=== PATIENT | male | born 1945 | race Caucasian/White ===

== ENCOUNTER 2018-12-13 19:35 | Inpatient (IN) | payer MEDICARE, MEDICAID ==
[2018-12-13 22:14] VITALS: BP 148/77
[2018-12-13] MEDS ORDERED: Magnesium Hydroxide (MOM) 30 mL UDC PO PRN (22:24)
[2018-12-14] MEDS: Rivastigmine 4.6 mg/24 hr Tdm TD SCH (09:12)
[2018-12-14] MEDS: Pantoprazole 40 mg EC Tab PO SCH (09:14)
--- NOTE | 2018-12-14 14:09 | Consultation ---
DATE OF CONSULTATION: 12/14/2018 INTERVENTIONAL CONSULTATION REASON FOR CONSULTATION: Medical management and clearance. The patient admitted on the inpatient unit. HISTORY OF PRESENT ILLNESS: This is a 73-year-old male with history of Parkinson's, Alzheimer dementia, BPH, GERD, admitted from facility in [facility]. The patient was cleared medically from hospital in [place] and transferred under service of Dr. Kinney. The patient is a very poor historian and stares blankly. PAST MEDICAL HISTORY: As mentioned in history of present illness. PAST SURGICAL HISTORY: Unable to obtain any surgeries from the patient. ALLERGIES: HEPARIN. MEDICATIONS: The patient is on Flomax, Exelon, Protonix, Seroquel, Ativan, and Depakote. FAMILY HISTORY: Noncontributory. SOCIAL HISTORY: The patient is a jail patient requiring 24-hour total care. REVIEW OF SYSTEMS: This is limited secondary to the patient's current mental state. We will try to obtain more detailed review of system at a later date by talking to family members, she, and ____ daughter, #[phone]. We will also try to get information from nursing staff in [place] as well as ____. PHYSICAL EXAMINATION: VITAL SIGNS: Blood pressure 148/77, respirations 20, pulse 93, temperature 97.9. GENERAL: Elderly male, chronically ill. NECK: Supple. No mass. LUNGS: Equal breath sounds with few rhonchi. HEART: Regular rate and rhythm with a systolic ejection murmur. ABDOMEN: Soft, globular. EXTREMITIES: Positive excoriations. NEUROLOGIC: Limited. The patient has resting tremor. Gait not seen, in a wheelchair. LABORATORY DATA: Labs are pending. ASSESSMENT AND PLAN: Parkinson's disorder, Alzheimer's dementia, BPH, gastroesophageal reflux disease. We will place the patient on fall precaution. We will try to see what his medication for Parkinson's. Continue on Flomax. Continue on proton pump inhibitor. We will continue monitoring closely with you, Dr. Kinney. JOB# [id number]
--- NOTE | 2018-12-14 18:15 | Psychiatric Evaluation ---
DATE OF SERVICE: 12/14/2018 JUSTIFICATION FOR HOSPITALIZATION: Increased anxiety, aggressive behaviors. HISTORY OF PRESENT ILLNESS: A 73-year-old male, refusing to speak with me this morning, does not engage with me whatsoever. He opens his eyes then closes them. The patient is here because of increased agitation, aggressive behaviors, anxiety. The patient was not [facility] to a [facility] because of behavioral disturbances, agitation, the nurse checked twice in the face, really agitated, noted by staff to be confused, disoriented, laughing to self, combative. PAST PSYCHIATRIC HISTORY: Noted to have dementia. SOCIAL HISTORY: Unclear, not speaking with me at this time. We will need to try to increase collateral. MEDICATIONS: Noted. MEDICAL HISTORY: Noted including Parkinson's. MENTAL STATUS EXAMINATION: Stated age, sleeping, arousable, opens his eyes, but does not engage with me whatsoever. Unclear SI or HI, unclear confusional state, but noted to have dementia, poor insight, poor impulse control. PROVISIONAL DIAGNOSES: Dementia, dementia with behaviors; mood, unspecified; psychosis, unspecified; anxiety, unspecified. MEDICAL: Please see full H and P. Vitals were noted. ESTIMATED LENGTH OF STAY: 7-10 days. ASSESSMENT: The patient requiring hospitalization, aggressive, agitated, combative, hitting, violence. PLAN: We will adjust medications. TREATMENT PLAN: Includes group as well as milieu therapy. CONDITIONS FOR DISCHARGE: Improved mood, improved affect, better control of agitation. JOB# [id number]
[2018-12-14] MEDS ORDERED: Haloperidol Lactate 5 mg/mL 1mL Vial ONE (19:47)
[2018-12-14] MEDS ORDERED: Haloperidol Lactate 5 mg/mL 1mL Vial IM ONE (19:59)
[2018-12-15] MEDS: Rivastigmine 4.6 mg/24 hr Tdm TD SCH (09:45)
[2018-12-15] MEDS: Pantoprazole 40 mg EC Tab PO SCH (09:45)
--- NOTE | 2018-12-15 12:54 | Internal Medicine Prog Note ---
Internal Medicine Subjective - Subjective Patient seen and examined:: with staff, chart reviewed Patient is:: awake, non-verbal, non-interactive, in bed Per staff patient has:: no adverse event, no episodes of fall, poor oral intake , tolerating meds Internal Medicine Objective - Physical Exam Vitals and I&O: Vital Signs Temp 98.1 F 12/14/18 20:00 Pulse 91 12/14/18 20:00 Resp 19 12/15/18 08:00 BP 142/65 12/14/18 20:00 Pulse Ox 95 12/14/18 20:00 Intake & Output 12/14/18 12/15/18 12/15/18 18:59 06:59 18:59 Intake Total 1200 720 Balance 1200 720 Intake: Oral 1200 720 Other: # Voids 3 2 # Bowel Movements 0 Active Medications: Current Medications Acetaminophen (Tylenol) 650 mg PO Q4HR PRN PRN Reason: Mild Pain / Temp above 100 Stop: 02/11/19 22:23 Lorazepam (Ativan) 0.5 mg PO Q4H PRN; Protocol PRN Reason: Anxiety Stop: 02/11/19 22:23 Last Admin: 12/15/18 09:59 Dose: 0.5 mg Magnesium Hydroxide (Milk Of Magnesia) 30 ml PO HS PRN PRN Reason: Constipation Pantoprazole Sodium (Protonix) 40 mg PO DAILY LISANDRO Stop: 02/12/19 08:59 Last Admin: 12/15/18 09:45 Dose: 40 mg Quetiapine Fumarate (Seroquel) 12.5 mg PO BID LISANDOR; Protocol Stop: 02/13/19 16:59 Rivastigmine (Exelon 4.6 Mg/24 Hr Tdm) 1 patch TD DAILY LISANDRO Stop: 02/12/19 08:59 Last Admin: 12/15/18 09:45 Dose: 1 patch Tamsulosin HCl (Flomax) 0.4 mg PO HS LISANDRO Stop: 02/12/19 20:59 Last Admin: 12/14/18 21:38 Dose: 0.4 mg Zolpidem Tartrate (Ambien) 5 mg PO HS PRN PRN Reason: Insomnia Stop: 02/11/19 22:23 General: demented, disheveled, thin HEENT: NC/AT, PERRLA, EOMI Neck: Supple, No JVD Lungs: CTAB Cardiovascular: RRR, Normal S1, Normal S2, with murmur Abdomen: soft, non-tender, thin, positive bowel sound Extremities: excoriation, deformity Neurological: no change Internal Medicine Assmt/Plan - Assessment Assessment: ASSESSMENT AND PLAN: Parkinson's disorder, Alzheimer's dementia, BPH, gastroesophageal reflux disease. - Plan Plan: PLAN: We will place the patient on fall precaution. We will try to see what his medication for Parkinson's. Continue on Flomax. Continue on proton pump inhibitor. We will continue monitoring closely with you, Dr. Kinney.
[2018-12-16] MEDS: Rivastigmine 4.6 mg/24 hr Tdm TD SCH (08:41)
[2018-12-16] MEDS: Pantoprazole 40 mg EC Tab PO SCH (08:43)
--- NOTE | 2018-12-16 09:29 | Progress Notes ---
DATE: 12/15/2018 SUBJECTIVE: The patient was seen and evaluated. The patient was interviewed. The patient was brought in here after the patient had increased agitation and aggressive behavior, refusing to speak in the morning. He was [facility] in [facility] ____. MEDICATIONS: Reconciliation. Rivastigmine, Exelon. The patient required emergent medications yesterday ____ Ativan and 25 Benadryl. Today, he is on a Rachel chair, observed some thought blocking, mild latency, rocking back and forth, refusing to be interviewed, agitated. ASSESSMENT AND PLAN: The patient is a 73-year-old male with a history of dementia, behavior disturbances, requiring emergent medications as early as yesterday for aggressive an agitated behavior, continues to need redirection. We will start the patient on low dose Seroquel 12.5 mg to target the patient's aggressive behavior. JOB# [id number]
--- NOTE | 2018-12-16 12:27 | Internal Medicine Prog Note ---
Internal Medicine Subjective - Subjective Patient seen and examined:: with staff, chart reviewed Patient is:: awake, non-verbal, non-interactive, in bed Per staff patient has:: no adverse event, no episodes of fall, poor oral intake , tolerating meds Internal Medicine Objective - Physical Exam Vitals and I&O: Vital Signs Temp 98.4 F 12/16/18 05:59 Pulse 89 12/16/18 05:59 Resp 18 12/16/18 08:00 BP 121/77 12/16/18 05:59 Pulse Ox 95 12/16/18 05:59 Intake & Output 12/15/18 12/16/18 12/16/18 18:59 06:59 18:59 Intake Total 1200 480 Output Total 2 Balance 1200 478 Intake: Oral 1200 480 Output: Urine/Stool Mix 2 Other: # Voids 3 1 # Bowel Movements 0 Active Medications: Current Medications Acetaminophen (Tylenol) 650 mg PO Q4HR PRN PRN Reason: Mild Pain / Temp above 100 Stop: 02/11/19 22:23 Lorazepam (Ativan) 0.5 mg PO Q4H PRN; Protocol PRN Reason: Anxiety Stop: 02/11/19 22:23 Last Admin: 12/15/18 09:59 Dose: 0.5 mg Magnesium Hydroxide (Milk Of Magnesia) 30 ml PO HS PRN PRN Reason: Constipation Pantoprazole Sodium (Protonix) 40 mg PO DAILY LISANDRO Stop: 02/12/19 08:59 Last Admin: 12/16/18 08:43 Dose: 40 mg Quetiapine Fumarate (Seroquel) 12.5 mg PO BID LISANDRO; Protocol Stop: 02/14/19 08:59 Last Admin: 12/16/18 08:42 Dose: 12.5 mg Rivastigmine (Exelon 4.6 Mg/24 Hr Tdm) 1 patch TD DAILY LISANDRO Stop: 02/12/19 08:59 Last Admin: 12/16/18 08:41 Dose: 1 patch Tamsulosin HCl (Flomax) 0.4 mg PO HS LISANDRO Stop: 02/12/19 20:59 Last Admin: 12/15/18 21:23 Dose: 0.4 mg Zolpidem Tartrate (Ambien) 5 mg PO HS PRN PRN Reason: Insomnia Stop: 02/11/19 22:23 Last Admin: 12/15/18 21:23 Dose: 5 mg General: demented, disheveled, thin HEENT: NC/AT, PERRLA, EOMI Neck: Supple, No JVD Lungs: CTAB Cardiovascular: RRR, Normal S1, Normal S2, with murmur Abdomen: soft, non-tender, thin, positive bowel sound Extremities: excoriation, deformity Neurological: no change Internal Medicine Assmt/Plan - Assessment Assessment: ASSESSMENT AND PLAN: Parkinson's disorder, Alzheimer's dementia, BPH, gastroesophageal reflux disease. - Plan Plan: PLAN: We will place the patient on fall precaution. We will try to see what his medication for Parkinson's. Continue on Flomax. Continue on proton pump inhibitor. We will continue monitoring closely with you, Dr. Kinney.
[2018-12-16] MEDS ORDERED: Haloperidol Lactate 5 mg/mL 1mL Vial IM ONE (12:48)
[2018-12-16] MEDS ORDERED: Haloperidol Lactate 5 mg/mL 1mL Vial ONE (12:55)
--- NOTE | 2018-12-16 18:38 | Progress Notes ---
DATE: SUBJECTIVE: The patient was seen and evaluated. The patient's chart reviewed. Covering for Dr. Montes. Today on [id number] evaluation, he is irritable, he is anxious, refusing most of the interview, needing a lot of prompting. MENTAL STATUS EXAMINATION: Moderate latency. No over sedation. ASSESSMENT AND PLAN: The patient is a 73-year-old male tolerating the recent addition of the Seroquel 12.5 mg as he had recently required emergent medications for aggressive and assaultive behavior. We will continue with the current medication regimen as he continues to reach steady state. Further monitoring and medical evaluation pending. JOB# [id number]
[2018-12-17] MEDS: Pantoprazole 40 mg EC Tab PO SCH (09:00)
[2018-12-17] MEDS: Rivastigmine 4.6 mg/24 hr Tdm TD SCH (09:01)
--- NOTE | 2018-12-17 12:35 | Internal Medicine Prog Note ---
Internal Medicine Subjective - Subjective Patient seen and examined:: with staff, chart reviewed Patient is:: awake, non-verbal, non-interactive, in bed Per staff patient has:: no adverse event, no episodes of fall, poor oral intake , tolerating meds Internal Medicine Objective - Physical Exam Vitals and I&O: Vital Signs Temp 97.9 F 12/17/18 05:58 Pulse 98 12/17/18 05:58 Resp 18 12/17/18 08:00 BP 128/78 12/17/18 05:58 Pulse Ox 96 12/17/18 05:58 Intake & Output 12/16/18 12/17/18 12/17/18 18:59 06:59 18:59 Intake Total 900 300 Output Total 1 Balance 900 299 Intake: Oral 900 300 Output: Urine/Stool Mix 1 Other: # Voids 4 1 # Bowel Movements 2 0 Active Medications: Current Medications Acetaminophen (Tylenol) 650 mg PO Q4HR PRN PRN Reason: Mild Pain / Temp above 100 Stop: 02/11/19 22:23 Lorazepam (Ativan) 0.5 mg PO Q4H PRN; Protocol PRN Reason: Anxiety Stop: 02/11/19 22:23 Last Admin: 12/15/18 09:59 Dose: 0.5 mg Magnesium Hydroxide (Milk Of Magnesia) 30 ml PO HS PRN PRN Reason: Constipation Pantoprazole Sodium (Protonix) 40 mg PO DAILY LISANDRO Stop: 02/12/19 08:59 Last Admin: 12/17/18 09:00 Dose: 40 mg Quetiapine Fumarate (Seroquel) 12.5 mg PO BID LISANDRO; Protocol Stop: 02/14/19 08:59 Last Admin: 12/17/18 09:00 Dose: 12.5 mg Rivastigmine (Exelon 4.6 Mg/24 Hr Tdm) 1 patch TD DAILY LISANDRO Stop: 02/12/19 08:59 Last Admin: 12/17/18 09:01 Dose: 1 patch Tamsulosin HCl (Flomax) 0.4 mg PO HS LISANDRO Stop: 02/12/19 20:59 Last Admin: 12/16/18 20:18 Dose: 0.4 mg Zolpidem Tartrate (Ambien) 5 mg PO HS PRN PRN Reason: Insomnia Stop: 02/11/19 22:23 Last Admin: 12/15/18 21:23 Dose: 5 mg General: demented, disheveled, thin HEENT: NC/AT, PERRLA, EOMI Neck: Supple, No JVD Lungs: CTAB Cardiovascular: RRR, Normal S1, Normal S2, with murmur Abdomen: soft, non-tender, thin, positive bowel sound Extremities: excoriation, deformity Neurological: no change Internal Medicine Assmt/Plan - Assessment Assessment: ASSESSMENT AND PLAN: Parkinson's disorder, Alzheimer's dementia, BPH, gastroesophageal reflux disease. - Plan Plan: PLAN: We will place the patient on fall precaution. We will try to see what his medication for Parkinson's. Continue on Flomax. Continue on proton pump inhibitor. We will continue monitoring closely with you, Dr. Kinney.
--- NOTE | 2018-12-17 23:51 | Progress Notes ---
DATE: 12/17/2018 SUBJECTIVE: A 73-year-old male in a Rachel chair, very confused on exam, just mumbling, not talking to me whatsoever. He is awake, looking around. Dr. Kinney is seeing him over the weekend, noted to be irritable, anxious, refusing most of the interview, needing a lot of prompting, sometimes agitated, aggressive, requiring emergency medications. ASSESSMENT: The patient remains impulsive, very unpredictable. PLAN: We will continue dosing of Risperdal. Monitor for any agitation, escalation of behaviors, violent behaviors. JOB# [id number]
[2018-12-18] MEDS: Pantoprazole 40 mg EC Tab PO SCH (09:14)
[2018-12-18] MEDS: Rivastigmine 4.6 mg/24 hr Tdm TD SCH (09:15)
--- NOTE | 2018-12-18 12:25 | Internal Medicine Prog Note ---
Internal Medicine Subjective - Subjective Patient seen and examined:: with staff, chart reviewed Patient is:: awake, non-verbal, non-interactive, in bed Per staff patient has:: no adverse event, no episodes of fall, poor oral intake , tolerating meds Internal Medicine Objective - Physical Exam Vitals and I&O: Vital Signs Temp 97.6 F 12/18/18 05:42 Pulse 82 12/18/18 05:42 Resp 20 12/18/18 05:42 BP 128/57 12/18/18 05:42 Pulse Ox 96 12/18/18 05:42 Intake & Output 12/17/18 12/18/18 12/18/18 18:59 06:59 18:59 Intake Total 800 300 Output Total 1 Balance 800 299 Intake: Oral 800 300 Output: Urine/Stool Mix 1 Other: # Voids 3 1 # Bowel Movements 1 1 Active Medications: Current Medications Acetaminophen (Tylenol) 650 mg PO Q4HR PRN PRN Reason: Mild Pain / Temp above 100 Stop: 02/11/19 22:23 Lorazepam (Ativan) 0.5 mg PO Q4H PRN; Protocol PRN Reason: Anxiety Stop: 02/11/19 22:23 Last Admin: 12/18/18 10:56 Dose: 0.5 mg Magnesium Hydroxide (Milk Of Magnesia) 30 ml PO HS PRN PRN Reason: Constipation Pantoprazole Sodium (Protonix) 40 mg PO DAILY LISANDRO Stop: 02/12/19 08:59 Last Admin: 12/18/18 09:14 Dose: 40 mg Quetiapine Fumarate (Seroquel) 12.5 mg PO BID LISANDRO; Protocol Stop: 02/14/19 08:59 Last Admin: 12/18/18 09:15 Dose: 12.5 mg Rivastigmine (Exelon 4.6 Mg/24 Hr Tdm) 1 patch TD DAILY LISANDRO Stop: 02/12/19 08:59 Last Admin: 12/18/18 09:15 Dose: 1 patch Tamsulosin HCl (Flomax) 0.4 mg PO HS LISANDRO Stop: 02/12/19 20:59 Last Admin: 12/17/18 21:41 Dose: 0.4 mg Zolpidem Tartrate (Ambien) 5 mg PO HS PRN PRN Reason: Insomnia Stop: 02/11/19 22:23 Last Admin: 12/15/18 21:23 Dose: 5 mg General: demented, disheveled, thin HEENT: NC/AT, PERRLA, EOMI Neck: Supple, No JVD Lungs: CTAB Cardiovascular: RRR, Normal S1, Normal S2, with murmur Abdomen: soft, non-tender, thin, positive bowel sound Extremities: excoriation, deformity Neurological: no change Internal Medicine Assmt/Plan - Assessment Assessment: ASSESSMENT AND PLAN: Parkinson's disorder, Alzheimer's dementia, BPH, gastroesophageal reflux disease. - Plan Plan: PLAN: We will place the patient on fall precaution. We will try to see what his medication for Parkinson's. Continue on Flomax. Continue on proton pump inhibitor. We will continue monitoring closely with you, Dr. Kinney.
[2018-12-19] MEDS: Pantoprazole 40 mg EC Tab PO SCH (09:28)
[2018-12-19] MEDS: Rivastigmine 4.6 mg/24 hr Tdm TD SCH (09:46)
--- NOTE | 2018-12-19 12:50 | Internal Medicine Prog Note ---
Internal Medicine Subjective - Subjective Patient seen and examined:: with staff, chart reviewed Patient is:: awake, non-verbal, non-interactive, in bed Per staff patient has:: no adverse event, no episodes of fall, poor oral intake , tolerating meds Internal Medicine Objective - Physical Exam Vitals and I&O: Vital Signs Temp 98.3 F 12/19/18 05:05 Pulse 80 12/19/18 05:05 Resp 20 12/19/18 05:05 BP 108/77 12/19/18 05:05 Pulse Ox 98 12/19/18 05:05 Intake & Output 12/18/18 12/19/18 12/19/18 18:59 06:59 18:59 Intake Total 480 Balance 480 Intake: Oral 480 Other: # Voids 2 2 # Bowel Movements 0 Active Medications: Current Medications Acetaminophen (Tylenol) 650 mg PO Q4HR PRN PRN Reason: Mild Pain / Temp above 100 Stop: 02/11/19 22:23 Lorazepam (Ativan) 0.5 mg PO Q4H PRN; Protocol PRN Reason: Anxiety Stop: 02/11/19 22:23 Last Admin: 12/18/18 20:28 Dose: 0.5 mg Magnesium Hydroxide (Milk Of Magnesia) 30 ml PO HS PRN PRN Reason: Constipation Pantoprazole Sodium (Protonix) 40 mg PO DAILY LISANDRO Stop: 02/12/19 08:59 Last Admin: 12/19/18 09:28 Dose: 40 mg Quetiapine Fumarate (Seroquel) 12.5 mg PO BID LISANDRO; Protocol Stop: 02/14/19 08:59 Last Admin: 12/19/18 09:28 Dose: 12.5 mg Rivastigmine (Exelon 4.6 Mg/24 Hr Tdm) 1 patch TD DAILY LISANDRO Stop: 02/12/19 08:59 Last Admin: 12/19/18 09:46 Dose: 1 patch Tamsulosin HCl (Flomax) 0.4 mg PO HS LISANDRO Stop: 02/12/19 20:59 Last Admin: 12/18/18 20:28 Dose: 0.4 mg Zolpidem Tartrate (Ambien) 5 mg PO HS PRN PRN Reason: Insomnia Stop: 02/11/19 22:23 Last Admin: 12/18/18 21:45 Dose: 5 mg General: demented, disheveled, thin HEENT: NC/AT, PERRLA, EOMI Neck: Supple, No JVD Lungs: CTAB Cardiovascular: RRR, Normal S1, Normal S2, with murmur Abdomen: soft, non-tender, thin, positive bowel sound Extremities: excoriation, deformity Neurological: no change Internal Medicine Assmt/Plan - Assessment Assessment: ASSESSMENT AND PLAN: Parkinson's disorder, Alzheimer's dementia, BPH, gastroesophageal reflux disease. - Plan Plan: PLAN: We will place the patient on fall precaution. We will try to see what his medication for Parkinson's. Continue on Flomax. Continue on proton pump inhibitor. We will continue monitoring closely with you, Dr. Kinney.
--- NOTE | 2018-12-19 18:34 | Progress Notes ---
DATE: 12/18/2018 SUBJECTIVE: The patient seen, chart reviewed, discussed with staff. The patient is currently on the unit, refusing to speak with me. Noted to be irritable, upset. Per staff, he is still aggressive, still trying to hit staff, striking out behaviors, ongoing anger, irritable, hostile and labile. Medications were noted. Fair sleep, fair appetite. PLAN: We will continue to monitor ongoing safety concerns. We will continue to titrate and adjust medications. Ongoing concerns about impulsivity. [facility]# [id number]
[2018-12-20] MEDS: Rivastigmine 4.6 mg/24 hr Tdm TD SCH (08:09)
[2018-12-20] MEDS: Pantoprazole 40 mg EC Tab PO SCH (08:10)
--- NOTE | 2018-12-20 14:30 | Progress Notes ---
DATE: 12/19/2018 The patient in the hospital, coming in due to increased agitation, anxiety, aggressive behaviors. The patient was pending hospice, but could not go because he was too aggressive. The patient is very confused, AO to name, not place, not situation, not month, not year, confused, disorientation noted, needing a lot of redirection, prompting, currently on dosing of Seroquel 12.5 twice a day. He has been somewhat calmer, still remains impulsive, unpredictable, sometimes trying to hit staff, though we will monitor closely. JOB# [id number]
--- NOTE | 2018-12-20 15:37 | Internal Medicine Prog Note ---
Internal Medicine Subjective - Subjective Patient seen and examined:: with staff, chart reviewed Patient is:: awake, non-verbal, non-interactive, in bed Per staff patient has:: no adverse event, no episodes of fall, poor oral intake , tolerating meds Internal Medicine Objective - Physical Exam Vitals and I&O: Vital Signs Temp 97.6 F 12/20/18 14:00 Pulse 79 12/20/18 14:00 Resp 19 12/20/18 14:00 BP 102/58 12/20/18 14:00 Pulse Ox 97 12/20/18 14:00 Intake & Output 12/19/18 12/20/18 12/20/18 18:59 06:59 18:59 Intake Total 800 120 Balance 800 120 Intake: Oral 800 120 Other: # Voids 3 3 # Bowel Movements 1 Active Medications: Current Medications Acetaminophen (Tylenol) 650 mg PO Q4HR PRN PRN Reason: Mild Pain / Temp above 100 Stop: 02/11/19 22:23 Lorazepam (Ativan) 0.5 mg PO Q4H PRN; Protocol PRN Reason: Anxiety Stop: 02/11/19 22:23 Last Admin: 12/19/18 21:00 Dose: 0.5 mg Magnesium Hydroxide (Milk Of Magnesia) 30 ml PO HS PRN PRN Reason: Constipation Pantoprazole Sodium (Protonix) 40 mg PO DAILY [facility] Stop: 02/12/19 08:59 Last Admin: 12/20/18 08:10 Dose: 40 mg Quetiapine Fumarate (Seroquel) 12.5 mg PO BID LISANDRO; Protocol Stop: 02/14/19 08:59 Last Admin: 12/20/18 08:10 Dose: 12.5 mg Rivastigmine (Exelon 4.6 Mg/24 Hr Tdm) 1 patch TD DAILY LISANDRO Stop: 02/12/19 08:59 Last Admin: 12/20/18 08:09 Dose: 1 patch Tamsulosin HCl (Flomax) 0.4 mg PO HS LISANDRO Stop: 02/12/19 20:59 Last Admin: 12/19/18 21:00 Dose: 0.4 mg Zolpidem Tartrate (Ambien) 5 mg PO HS PRN PRN Reason: Insomnia Stop: 02/11/19 22:23 Last Admin: 12/19/18 22:04 Dose: 5 mg General: demented, disheveled, thin HEENT: NC/AT, PERRLA, EOMI Neck: Supple, No JVD Lungs: CTAB Cardiovascular: RRR, Normal S1, Normal S2, with murmur Abdomen: soft, non-tender, thin, positive bowel sound Extremities: excoriation, deformity Neurological: no change Internal Medicine Assmt/Plan - Assessment Assessment: ASSESSMENT AND PLAN: Parkinson's disorder, Alzheimer's dementia, BPH, gastroesophageal reflux disease. - Plan Plan: PLAN: We will place the patient on fall precaution. We will try to see what his medication for Parkinson's. Continue on Flomax. Continue on proton pump inhibitor. We will continue monitoring closely with you, Dr. Kinney. Nutritional Asmnt/Malnutr-PDOC - Dietary Evaluation Malnutrition Findings (Please click <Entered> for more info): Nutritional Asmnt/Malnutrition Start: 12/19/18 15: 45 Text: Status: Complete Freq: Protocol: Document 12/19/18 15:45 RINKU (Rec: 12/19/18 15:48 [email or web address] [id number]) Nutritional Asmnt/Malnutrition Patient General Information Nutritional Screening Low Risk Diagnosis Psychosis NOS Pertinent Medical Hx/Surgical Hx Parkinsons, Dementia (limited , no H&P) Subjective Information Pt is a 73-year-old male admitted on 12/13 d/t increased agitation, aggressive behavior, and anxiety. Pt is eating 80% of meals Per Meal/ Nutrition Activity Record. Dietary is currently providing an estimated 2790 kcals and 125 gm Pro, per Pt PO intake this is providing an estimated 2230 kcals and 100gm Pro to meet 100+% kcal and 100+% Pro needs- adequate to meet estimated nutritional needs. Pt has bruising, wounds are healing and scabbed over. HT: 57 WT: 195 LB (88.64 kg) ABW: 160 LB (72.61 kg) BMI: 30.54 (Obese) GI: WNL, Soft, Non-tender, Round BM: 12/17 x1 I/O: 480/Not Noted Skin: Area of concern Wound: LINNEA knees scabs. Lt Smith rash with pink. LT forearm bruise with discoloration. Oleksandr: 23 Diet Order: Regular Estimated Energy Needs: ( Geriatric, ABW) 9994-4688 kcals (25-30 kcals/ kg) 73-87g Pro (1.0-1.2 g/kg) 1186-8086 ml (25-30 ml/kg) Current Diet Order/ Nutrition Support Regular Pertinent Medications MOM (PRN), Protonix, Flomax Pertinent Labs No labs to report Nutritional Hx/Data Height 1.7 m Height (Calculated Centimeters) 170.2 Current Weight (lbs) 88.451 kg Weight (Calculated Kilograms) 88.5 Weight (Calculated Grams) 43803.5 [place] Body Weight 148 LB (67.27 kg) % [place] Body Weight 132 Body Mass Index (BMI) 30.5 Weight Status Obese GI Symptoms Last BM 12/17 x1 Skin Integrity/Comment: Wound: LINNEA knees scabs. Lt Smith rash with pink. LT forearm bruise with discoloration. Oleksandr: 23 Current %PO Good (75-100%) Estimated Nutritional Goals BEE in Kcals: Adj wt of IBW Calories/Kcals/Kg 25-30 Kcals Calculated 5323-2313 Protein: Adj wt of IBW Protein g/k.0-1.2 Protein Calculated 73-87 Fluid: ml 6720-1952 ml (25-30 ml/kg) Nutritional Problem 1. Problem Problem No nutrition diagnosis at this time. Etiology N/A Signs/Symptoms: N/A Malnutrition Related to Morbid Obesity Malnutrition related to morbid obesity No Intervention/Recommendation Comments Continue with Regular diet as ordered. Expected Outcomes/Goals Expected Outcomes/Goals 1. PO intake to continue to meet >75% of nutritional needs . 2. Monitor PO intake, wt, nutrition related labs, and skin integrity to trend WNL. 3. F/U as low risk in 7-10 days, 12/26-12/29
--- NOTE | 2018-12-21 04:20 | Progress Notes ---
DATE: 12/20/2018 SUBJECTIVE: The patient in the hospital. The patient apparently has a outpatient case manager. We are trying to get in touch via the insurance company. The patient apparently was residing at home with daughter; they were providing care for her. The patient not a change in his mobility and the daughter took him to the hospital to try to find placement. Daughter needs to find placement for the patient. The patient was pending hospice, but he was too agitated and aggressive. The patient is really confused right now, easily agitated, confused, mostly withdrawn, keeps to self, currently on dosing of Seroquel. PLAN: We will continue to monitor. We do not really have anywhere to send the patient right now, he is gravely disabled therefore. JOB# [id number]
[2018-12-21] MEDS: Pantoprazole 40 mg EC Tab PO SCH (08:33)
[2018-12-21] MEDS: Rivastigmine 4.6 mg/24 hr Tdm TD SCH (08:33)
--- NOTE | 2018-12-21 12:54 | Internal Medicine Prog Note ---
Internal Medicine Subjective - Subjective Patient seen and examined:: with staff, chart reviewed Patient is:: awake, non-verbal, non-interactive, in bed Per staff patient has:: no adverse event, no episodes of fall, poor oral intake , tolerating meds Internal Medicine Objective - Physical Exam Vitals and I&O: Vital Signs Temp 97.7 F 12/20/18 20:00 Pulse 102 12/20/18 20:00 Resp 17 12/21/18 08:00 BP 126/63 12/20/18 20:00 Pulse Ox 97 12/20/18 20:00 Intake & Output 12/20/18 12/21/18 12/21/18 18:59 06:59 18:59 Intake Total 1100 Balance 1100 Intake: Oral 1100 Active Medications: Current Medications Acetaminophen (Tylenol) 650 mg PO Q4HR PRN PRN Reason: Mild Pain / Temp above 100 Stop: 02/11/19 22:23 Lorazepam (Ativan) 0.5 mg PO Q4H PRN; Protocol PRN Reason: Anxiety Stop: 02/11/19 22:23 Last Admin: 12/19/18 21:00 Dose: 0.5 mg Magnesium Hydroxide (Milk Of Magnesia) 30 ml PO HS PRN PRN Reason: Constipation Pantoprazole Sodium (Protonix) 40 mg PO DAILY [facility] Stop: 02/12/19 08:59 Last Admin: 12/21/18 08:33 Dose: 40 mg Quetiapine Fumarate (Seroquel) 12.5 mg PO BID [facility]; Protocol Stop: 02/14/19 08:59 Last Admin: 12/21/18 08:32 Dose: 12.5 mg Rivastigmine (Exelon 4.6 Mg/24 Hr Tdm) 1 patch TD DAILY [facility] Stop: 02/12/19 08:59 Last Admin: 12/21/18 08:33 Dose: 1 patch Tamsulosin HCl (Flomax) 0.4 mg PO HS [facility] Stop: 02/12/19 20:59 Last Admin: 12/20/18 21:04 Dose: 0.4 mg Zolpidem Tartrate (Ambien) 5 mg PO HS PRN PRN Reason: Insomnia Stop: 02/11/19 22:23 Last Admin: 12/20/18 21:04 Dose: 5 mg General: demented, disheveled, thin HEENT: NC/AT, PERRLA, EOMI Neck: Supple, No JVD Lungs: CTAB Cardiovascular: RRR, Normal S1, Normal S2, with murmur Abdomen: soft, non-tender, thin, positive bowel sound Extremities: excoriation, deformity Neurological: no change Internal Medicine Assmt/Plan - Assessment Assessment: ASSESSMENT AND PLAN: Parkinson's disorder, Alzheimer's dementia, BPH, gastroesophageal reflux disease. - Plan Plan: PLAN: We will place the patient on fall precaution. We will try to see what his medication for Parkinson's. Continue on Flomax. Continue on proton pump inhibitor. We will continue monitoring closely with you, Dr. Kinney. Nutritional Asmnt/Malnutr-PDOC - Dietary Evaluation Malnutrition Findings (Please click <Entered> for more info): Nutritional Asmnt/Malnutrition Start: 12/19/18 15: 45 Text: Status: Complete Freq: Protocol: Document 12/19/18 15:45 RINKU (Rec: 12/19/18 15:48 RINKU [email or web address]) Nutritional Asmnt/Malnutrition Patient General Information Nutritional Screening Low Risk Diagnosis Psychosis NOS Pertinent Medical Hx/Surgical Hx Parkinsons, Dementia (limited , no H&P) Subjective Information Pt is a 73-year-old male admitted on 12/13 d/t increased agitation, aggressive behavior, and anxiety. Pt is eating 80% of meals Per Meal/ Nutrition Activity Record. Dietary is currently providing an estimated 2790 kcals and 125 gm Pro, per Pt PO intake this is providing an estimated 2230 kcals and 100gm Pro to meet 100+% kcal and 100+% Pro needs- adequate to meet estimated nutritional needs. Pt has bruising, wounds are healing and scabbed over. HT: 57 WT: 195 LB (88.64 kg) ABW: 160 LB (72.61 kg) BMI: 30.54 (Obese) GI: WNL, Soft, Non-tender, Round BM: 12/17 x1 I/O: 480/Not Noted Skin: Area of concern Wound: LINNEA knees scabs. Lt Smith rash with pink. LT forearm bruise with discoloration. Oleksandr: 23 Diet Order: Regular Estimated Energy Needs: ( Geriatric, ABW) 1375-6832 kcals (25-30 kcals/ kg) 73-87g Pro (1.0-1.2 g/kg) 5528-8669 ml (25-30 ml/kg) Current Diet Order/ Nutrition Support Regular Pertinent Medications MOM (PRN), Protonix, Flomax Pertinent Labs No labs to report Nutritional Hx/Data Height 1.7 m Height (Calculated Centimeters) 170.2 Current Weight (lbs) 88.451 kg Weight (Calculated Kilograms) 88.5 Weight (Calculated Grams) 69884.5 [place] Body Weight 148 LB (67.27 kg) % [place] Body Weight 132 Body Mass Index (BMI) 30.5 Weight Status Obese GI Symptoms Last BM 12/17 x1 Skin Integrity/Comment: Wound: LINNEA knees scabs. Lt Smith rash with pink. LT forearm bruise with discoloration. Oleksandr: 23 Current %PO Good (75-100%) Estimated Nutritional Goals BEE in Kcals: Adj wt of IBW Calories/Kcals/Kg 25-30 Kcals Calculated 6861-8988 Protein: Adj wt of IBW Protein g/k.0-1.2 Protein Calculated 73-87 Fluid: ml 3405-4257 ml (25-30 ml/kg) Nutritional Problem 1. Problem Problem No nutrition diagnosis at this time. Etiology N/A Signs/Symptoms: N/A Malnutrition Related to Morbid Obesity Malnutrition related to morbid obesity No Intervention/Recommendation Comments Continue with Regular diet as ordered. Expected Outcomes/Goals Expected Outcomes/Goals 1. PO intake to continue to meet >75% of nutritional needs . 2. Monitor PO intake, wt, nutrition related labs, and skin integrity to trend WNL. 3. F/U as low risk in 7-10 days, 12/26-12/29
--- NOTE | 2018-12-21 22:25 | Progress Notes ---
DATE: 12/21/2018 SUBJECTIVE: The patient in the hospital, still agitated, aggressive, resistive to care, very confused, just knows his name, does not know where he is or what is going on, agitated, impulsive, unpredictable, still fighting with staff at times, especially during care, very confused, forgetfulness, remains on a regimen. I will be adding Namenda to his regimen. Vitals were noted. Medications were reviewed. JOB# [id number]
[2018-12-22] MEDS: Pantoprazole 40 mg EC Tab PO SCH (10:24)
[2018-12-22] MEDS: Rivastigmine 4.6 mg/24 hr Tdm TD SCH (10:24)
--- NOTE | 2018-12-22 14:07 | Internal Medicine Prog Note ---
Internal Medicine Subjective - Subjective Patient seen and examined:: with staff, chart reviewed Patient is:: awake, non-verbal, non-interactive, in bed Per staff patient has:: no adverse event, no episodes of fall, poor oral intake , tolerating meds Internal Medicine Objective - Physical Exam Vitals and I&O: Vital Signs Temp 98 F 12/22/18 06:08 Pulse 77 12/22/18 06:08 Resp 20 12/22/18 06:08 BP 118/66 12/22/18 06:08 Pulse Ox 97 12/22/18 06:08 Intake & Output 12/21/18 12/22/18 12/22/18 18:59 06:59 18:59 Intake Total 950 Balance 950 Intake: Oral 950 Other: # Voids 3 # Bowel Movements 1 Active Medications: Current Medications Acetaminophen (Tylenol) 650 mg PO Q4HR PRN PRN Reason: Mild Pain / Temp above 100 Stop: 02/11/19 22:23 Lorazepam (Ativan) 0.5 mg PO Q4H PRN; Protocol PRN Reason: Anxiety Stop: 02/11/19 22:23 Last Admin: 12/22/18 10:24 Dose: 0.5 mg Magnesium Hydroxide (Milk Of Magnesia) 30 ml PO HS PRN PRN Reason: Constipation Memantine (Namenda) 5 mg PO DAILY [facility] Stop: 02/19/19 15:59 Last Admin: 12/22/18 10:24 Dose: 5 mg Pantoprazole Sodium (Protonix) 40 mg PO DAILY L[facility]AN[facility] Stop: 02/12/19 08:59 Last Admin: 12/22/18 10:24 Dose: 40 mg Quetiapine Fumarate (Seroquel) 12.5 mg PO BID L[facility]AN[facility]O; Protocol Stop: 02/14/19 08:59 Last Admin: 12/22/18 10:23 Dose: 12.5 mg Rivastigmine (Exelon 4.6 Mg/24 Hr Tdm) 1 patch TD DAILY [facility] Stop: 02/12/19 08:59 Last Admin: 12/22/18 10:24 Dose: 1 patch Tamsulosin HCl (Flomax) 0.4 mg PO HS [facility] Stop: 02/12/19 20:59 Last Admin: 12/21/18 20:48 Dose: 0.4 mg Zolpidem Tartrate (Ambien) 5 mg PO HS PRN PRN Reason: Insomnia Stop: 02/11/19 22:23 Last Admin: 12/21/18 20:48 Dose: 5 mg General: demented, disheveled, thin HEENT: NC/AT, PERRLA, EOMI Neck: Supple, No JVD Lungs: CTAB Cardiovascular: RRR, Normal S1, Normal S2, with murmur Abdomen: soft, non-tender, thin, positive bowel sound Extremities: excoriation, deformity Neurological: no change Internal Medicine Assmt/Plan - Assessment Assessment: ASSESSMENT AND PLAN: Parkinson's disorder, Alzheimer's dementia, BPH, gastroesophageal reflux disease. - Plan Plan: PLAN: We will place the patient on fall precaution. We will try to see what his medication for Parkinson's. Continue on Flomax. Continue on proton pump inhibitor. We will continue monitoring closely with you, Dr. Kinney. Nutritional Asmnt/Malnutr-PDOC - Dietary Evaluation Malnutrition Findings (Please click <Entered> for more info): Nutritional Asmnt/Malnutrition Start: 12/19/18 15: 45 Text: Status: Complete Freq: Protocol: Document 12/19/18 15:45 RINKU (Rec: 12/19/18 15:48 RINKU [email or web address]) Nutritional Asmnt/Malnutrition Patient General Information Nutritional Screening Low Risk Diagnosis Psychosis NOS Pertinent Medical Hx/Surgical Hx Parkinsons, Dementia (limited , no H&P) Subjective Information Pt is a 73-year-old male admitted on 12/13 d/t increased agitation, aggressive behavior, and anxiety. Pt is eating 80% of meals Per Meal/ Nutrition Activity Record. Dietary is currently providing an estimated 2790 kcals and 125 gm Pro, per Pt PO intake this is providing an estimated 2230 kcals and 100gm Pro to meet 100+% kcal and 100+% Pro needs- adequate to meet estimated nutritional needs. Pt has bruising, wounds are healing and scabbed over. HT: 57 WT: 195 LB (88.64 kg) ABW: 160 LB (72.61 kg) BMI: 30.54 (Obese) GI: WNL, Soft, Non-tender, Round BM: 12/17 x1 I/O: 480/Not Noted Skin: Area of concern Wound: LINNEA knees scabs. Lt Smith rash with pink. LT forearm bruise with discoloration. Oleksandr: 23 Diet Order: Regular Estimated Energy Needs: ( Geriatric, ABW) 2883-7470 kcals (25-30 kcals/ kg) 73-87g Pro (1.0-1.2 g/kg) 9635-8675 ml (25-30 ml/kg) Current Diet Order/ Nutrition Support Regular Pertinent Medications MOM (PRN), Protonix, Flomax Pertinent Labs No labs to report Nutritional Hx/Data Height 1.7 m Height (Calculated Centimeters) 170.2 Current Weight (lbs) 88.451 kg Weight (Calculated Kilograms) 88.5 Weight (Calculated Grams) 64596.5 [place] Body Weight 148 LB (67.27 kg) % [place] Body Weight 132 Body Mass Index (BMI) 30.5 Weight Status Obese GI Symptoms Last BM 12/17 x1 Skin Integrity/Comment: Wound: LINNEA knees scabs. Lt Smith rash with pink. LT forearm bruise with discoloration. Oleksandr: 23 Current %PO Good (75-100%) Estimated Nutritional Goals BEE in Kcals: Adj wt of IBW Calories/Kcals/Kg 25-30 Kcals Calculated 5131-8302 Protein: Adj wt of IBW Protein g/k.0-1.2 Protein Calculated 73-87 Fluid: ml 1861-7614 ml (25-30 ml/kg) Nutritional Problem 1. Problem Problem No nutrition diagnosis at this time. Etiology N/A Signs/Symptoms: N/A Malnutrition Related to Morbid Obesity Malnutrition related to morbid obesity No Intervention/Recommendation Comments Continue with Regular diet as ordered. Expected Outcomes/Goals Expected Outcomes/Goals 1. PO intake to continue to meet >75% of nutritional needs . 2. Monitor PO intake, wt, nutrition related labs, and skin integrity to trend WNL. 3. F/U as low risk in 7-10 days, 12/26-12/29
--- NOTE | 2018-12-22 23:07 | Progress Notes ---
DATE: 12/22/2018 Dr. Monk is covering for Dr. Kinney. SUBJECTIVE: Chart reviewed and the patient interviewed. Also discussed the patient's condition with the staff and reviewed records and labs. The patient continued to be confused and forgetful. The patient also still wants to be left alone and he still has episodes of agitation and aggression, but seems to be less than before. The patient also at times still confused and resisting care from staff. Otherwise, the patient is compliant with taking Seroquel and Exelon with no side effects. ASSESSMENT: The patient is still confused and agitated. TREATMENT PLAN: Continue monitoring behavior and condition closely. Also, continue adjusting psychotropic medications and work on behavioral modification. [facility]# [id number]
[2018-12-23] MEDS ORDERED: Haloperidol Lactate 5 mg/mL 1mL Vial IM ONE (07:23)
[2018-12-23] MEDS: Pantoprazole 40 mg EC Tab PO SCH (08:47)
[2018-12-23] MEDS: Rivastigmine 4.6 mg/24 hr Tdm TD SCH (08:47)
--- NOTE | 2018-12-23 12:13 | Internal Medicine Prog Note ---
Internal Medicine Subjective - Subjective Patient seen and examined:: with staff, chart reviewed Patient is:: awake, non-verbal, non-interactive, in bed Per staff patient has:: no adverse event, no episodes of fall, poor oral intake , tolerating meds Internal Medicine Objective - Physical Exam Vitals and I&O: Vital Signs Temp 97.2 F 12/23/18 06:15 Pulse 78 12/23/18 06:15 Resp 18 12/23/18 06:15 BP 102/65 12/23/18 06:15 Pulse Ox 97 12/23/18 06:15 Intake & Output 12/22/18 12/23/18 12/23/18 18:59 06:59 18:59 Intake Total 1200 120 Balance 1200 120 Intake: Oral 1200 120 Other: # Voids 3 # Bowel Movements 1 Active Medications: Current Medications Acetaminophen (Tylenol) 650 mg PO Q4HR PRN PRN Reason: Mild Pain / Temp above 100 Stop: 02/11/19 22:23 Lorazepam (Ativan) 0.5 mg PO Q4H PRN; Protocol PRN Reason: Anxiety Stop: 02/11/19 22:23 Last Admin: 12/22/18 10:24 Dose: 0.5 mg Magnesium Hydroxide (Milk Of Magnesia) 30 ml PO HS PRN PRN Reason: Constipation Memantine (Namenda) 5 mg PO DAILY [facility] Stop: 02/19/19 15:59 Last Admin: 12/23/18 08:47 Dose: 5 mg Pantoprazole Sodium (Protonix) 40 mg PO DAILY [facility]AN[facility] Stop: 02/12/19 08:59 Last Admin: 12/23/18 08:47 Dose: 40 mg Quetiapine Fumarate (Seroquel) 12.5 mg PO BID [facility]; Protocol Stop: 02/14/19 08:59 Last Admin: 12/23/18 08:50 Dose: 12.5 mg Rivastigmine (Exelon 4.6 Mg/24 Hr Tdm) 1 patch TD DAILY [facility] Stop: 02/12/19 08:59 Last Admin: 12/23/18 08:47 Dose: 1 patch Tamsulosin HCl (Flomax) 0.4 mg PO HS LISANDRO Stop: 02/12/19 20:59 Last Admin: 12/22/18 20:39 Dose: 0.4 mg Zolpidem Tartrate (Ambien) 5 mg PO HS PRN PRN Reason: Insomnia Stop: 02/11/19 22:23 Last Admin: 12/22/18 20:39 Dose: 5 mg General: demented, disheveled, thin HEENT: NC/AT, PERRLA, EOMI Neck: Supple, No JVD Lungs: CTAB Cardiovascular: RRR, Normal S1, Normal S2, with murmur Abdomen: soft, non-tender, thin, positive bowel sound Extremities: excoriation, deformity Neurological: no change Internal Medicine Assmt/Plan - Assessment Assessment: ASSESSMENT AND PLAN: Parkinson's disorder, Alzheimer's dementia, BPH, gastroesophageal reflux disease. - Plan Plan: PLAN: We will place the patient on fall precaution. We will try to see what his medication for Parkinson's. Continue on Flomax. Continue on proton pump inhibitor. We will continue monitoring closely with you, Dr. Kinney. Nutritional Asmnt/Malnutr-PDOC - Dietary Evaluation Malnutrition Findings (Please click <Entered> for more info): Nutritional Asmnt/Malnutrition Start: 12/19/18 15: 45 Text: Status: Complete Freq: Protocol: Document 12/19/18 15:45 RINKU (Rec: 12/19/18 15:48 RINKU [email or web address]) Nutritional Asmnt/Malnutrition Patient General Information Nutritional Screening Low Risk Diagnosis Psychosis NOS Pertinent Medical Hx/Surgical Hx Parkinsons, Dementia (limited , no H&P) Subjective Information Pt is a 73-year-old male admitted on 12/13 d/t increased agitation, aggressive behavior, and anxiety. Pt is eating 80% of meals Per Meal/ Nutrition Activity Record. Dietary is currently providing an estimated 2790 kcals and 125 gm Pro, per Pt PO intake this is providing an estimated 2230 kcals and 100gm Pro to meet 100+% kcal and 100+% Pro needs- adequate to meet estimated nutritional needs. Pt has bruising, wounds are healing and scabbed over. HT: 57 WT: 195 LB (88.64 kg) ABW: 160 LB (72.61 kg) BMI: 30.54 (Obese) GI: WNL, Soft, Non-tender, Round BM: 12/17 x1 I/O: 480/Not Noted Skin: Area of concern Wound: LINNEA knees scabs. Lt Smith rash with pink. LT forearm bruise with discoloration. Oleksandr: 23 Diet Order: Regular Estimated Energy Needs: ( Geriatric, ABW) 9231-5027 kcals (25-30 kcals/ kg) 73-87g Pro (1.0-1.2 g/kg) 5082-4963 ml (25-30 ml/kg) Current Diet Order/ Nutrition Support Regular Pertinent Medications MOM (PRN), Protonix, Flomax Pertinent Labs No labs to report Nutritional Hx/Data Height 1.7 m Height (Calculated Centimeters) 170.2 Current Weight (lbs) 88.451 kg Weight (Calculated Kilograms) 88.5 Weight (Calculated Grams) 52538.5 [place] Body Weight 148 LB (67.27 kg) % [place] Body Weight 132 Body Mass Index (BMI) 30.5 Weight Status Obese GI Symptoms Last BM 12/17 x1 Skin Integrity/Comment: Wound: LINNEA knees scabs. Lt Smith rash with pink. LT forearm bruise with discoloration. Oleksandr: 23 Current %PO Good (75-100%) Estimated Nutritional Goals BEE in Kcals: Adj wt of IBW Calories/Kcals/Kg 25-30 Kcals Calculated 1472-8277 Protein: Adj wt of IBW Protein g/k.0-1.2 Protein Calculated 73-87 Fluid: ml 7919-9096 ml (25-30 ml/kg) Nutritional Problem 1. Problem Problem No nutrition diagnosis at this time. Etiology N/A Signs/Symptoms: N/A Malnutrition Related to Morbid Obesity Malnutrition related to morbid obesity No Intervention/Recommendation Comments Continue with Regular diet as ordered. Expected Outcomes/Goals Expected Outcomes/Goals 1. PO intake to continue to meet >75% of nutritional needs . 2. Monitor PO intake, wt, nutrition related labs, and skin integrity to trend WNL. 3. F/U as low risk in 7-10 days, 12/26-12/29
--- NOTE | 2018-12-24 07:56 | Progress Notes ---
DATE: SUBJECTIVE: Chart reviewed and the patient interviewed. Also discussed the patient's condition with the staff and reviewed records and labs. The patient continued to be confused and forgetful. The patient also is still restless and easily agitated. Also, still needs redirections. Otherwise, the patient is cooperative and compliant with taking his medications with no side effects. ASSESSMENT: The patient is still confused and psychotic. TREATMENT PLAN: Continue to monitor behavior and condition closely and continue adjusting psychotropic medications and work on behavioral modification. [facility]# [id number]
[2018-12-24] MEDS: Rivastigmine 4.6 mg/24 hr Tdm TD SCH (08:25)
[2018-12-24] MEDS: Pantoprazole 40 mg EC Tab PO SCH (08:26)
--- NOTE | 2018-12-24 12:12 | Internal Medicine Prog Note ---
Internal Medicine Subjective - Subjective Patient seen and examined:: with staff, chart reviewed Patient is:: awake, non-verbal, non-interactive, in bed Per staff patient has:: no adverse event, no episodes of fall, poor oral intake , tolerating meds Internal Medicine Objective - Physical Exam Vitals and I&O: Vital Signs Temp 97.3 F 12/24/18 06:21 Pulse 90 12/24/18 06:21 Resp 20 12/24/18 06:21 BP 113/72 12/24/18 06:21 Pulse Ox 94 12/24/18 06:21 Intake & Output 12/23/18 12/24/18 12/24/18 18:59 06:59 18:59 Intake Total 800 360 Balance 800 360 Intake: Oral 800 360 Other: # Voids 4 2 # Bowel Movements 0 0 Active Medications: Current Medications Acetaminophen (Tylenol) 650 mg PO Q4HR PRN PRN Reason: Mild Pain / Temp above 100 Stop: 02/11/19 22:23 Lorazepam (Ativan) 0.5 mg PO Q4H PRN; Protocol PRN Reason: Anxiety Stop: 02/11/19 22:23 Last Admin: 12/24/18 08:26 Dose: 0.5 mg Magnesium Hydroxide (Milk Of Magnesia) 30 ml PO HS PRN PRN Reason: Constipation Memantine (Namenda) 5 mg PO DAILY [facility] Stop: 02/19/19 15:59 Last Admin: 12/24/18 08:26 Dose: 5 mg Pantoprazole Sodium (Protonix) 40 mg PO DAILY [facility] Stop: 02/12/19 08:59 Last Admin: 12/24/18 08:26 Dose: 40 mg Quetiapine Fumarate (Seroquel) 12.5 mg PO BID [facility]; Protocol Stop: 02/14/19 08:59 Last Admin: 12/24/18 08:26 Dose: 12.5 mg Rivastigmine (Exelon 4.6 Mg/24 Hr Tdm) 1 patch TD DAILY [facility] Stop: 02/12/19 08:59 Last Admin: 12/24/18 08:25 Dose: 1 patch Tamsulosin HCl (Flomax) 0.4 mg PO HS [facility] Stop: 02/12/19 20:59 Last Admin: 12/23/18 21:21 Dose: 0.4 mg Zolpidem Tartrate (Ambien) 5 mg PO HS PRN PRN Reason: Insomnia Stop: 02/11/19 22:23 Last Admin: 12/23/18 21:21 Dose: 5 mg General: demented, disheveled, thin HEENT: NC/AT, PERRLA, EOMI Neck: Supple, No JVD Lungs: CTAB Cardiovascular: RRR, Normal S1, Normal S2, with murmur Abdomen: soft, non-tender, thin, positive bowel sound Extremities: excoriation, deformity Neurological: no change Internal Medicine Assmt/Plan - Assessment Assessment: ASSESSMENT AND PLAN: Parkinson's disorder, Alzheimer's dementia, BPH, gastroesophageal reflux disease. - Plan Plan: PLAN: We will place the patient on fall precaution. We will try to see what his medication for Parkinson's. Continue on Flomax. Continue on proton pump inhibitor. We will continue monitoring closely with you, Dr. Kinney. Nutritional Asmnt/Malnutr-PDOC - Dietary Evaluation Malnutrition Findings (Please click <Entered> for more info): Nutritional Asmnt/Malnutrition Start: 12/19/18 15: 45 Text: Status: Complete Freq: Protocol: Document 12/19/18 15:45 RINKU (Rec: 12/19/18 15:48 [email or web address] [email or web address]) Nutritional Asmnt/Malnutrition Patient General Information Nutritional Screening Low Risk Diagnosis Psychosis NOS Pertinent Medical Hx/Surgical Hx Parkinsons, Dementia (limited , no H&P) Subjective Information Pt is a 73-year-old male admitted on 12/13 d/t increased agitation, aggressive behavior, and anxiety. Pt is eating 80% of meals Per Meal/ Nutrition Activity Record. Dietary is currently providing an estimated 2790 kcals and 125 gm Pro, per Pt PO intake this is providing an estimated 2230 kcals and 100gm Pro to meet 100+% kcal and 100+% Pro needs- adequate to meet estimated nutritional needs. Pt has bruising, wounds are healing and scabbed over. HT: 57 WT: 195 LB (88.64 kg) ABW: 160 LB (72.61 kg) BMI: 30.54 (Obese) GI: WNL, Soft, Non-tender, Round BM: 12/17 x1 I/O: 480/Not Noted Skin: Area of concern Wound: LINNEA knees scabs. Lt Smith rash with pink. LT forearm bruise with discoloration. Oleksandr: 23 Diet Order: Regular Estimated Energy Needs: ( Geriatric, ABW) 3112-9608 kcals (25-30 kcals/ kg) 73-87g Pro (1.0-1.2 g/kg) 7630-1330 ml (25-30 ml/kg) Current Diet Order/ Nutrition Support Regular Pertinent Medications MOM (PRN), Protonix, Flomax Pertinent Labs No labs to report Nutritional Hx/Data Height 1.7 m Height (Calculated Centimeters) 170.2 Current Weight (lbs) 88.451 kg Weight (Calculated Kilograms) 88.5 Weight (Calculated Grams) 02446.5 [place] Body Weight 148 LB (67.27 kg) % [place] Body Weight 132 Body Mass Index (BMI) 30.5 Weight Status Obese GI Symptoms Last BM 12/17 x1 Skin Integrity/Comment: Wound: LINNEA knees scabs. Lt Smith rash with pink. LT forearm bruise with discoloration. Oleksandr: 23 Current %PO Good (75-100%) Estimated Nutritional Goals BEE in Kcals: Adj wt of IBW Calories/Kcals/Kg 25-30 Kcals Calculated 9765-9534 Protein: Adj wt of IBW Protein g/k.0-1.2 Protein Calculated 73-87 Fluid: ml 4311-7683 ml (25-30 ml/kg) Nutritional Problem 1. Problem Problem No nutrition diagnosis at this time. Etiology N/A Signs/Symptoms: N/A Malnutrition Related to Morbid Obesity Malnutrition related to morbid obesity No Intervention/Recommendation Comments Continue with Regular diet as ordered. Expected Outcomes/Goals Expected Outcomes/Goals 1. PO intake to continue to meet >75% of nutritional needs . 2. Monitor PO intake, wt, nutrition related labs, and skin integrity to trend WNL. 3. F/U as low risk in 7-10 days, 12/26-12/29
--- NOTE | 2018-12-24 21:01 | Progress Notes ---
DATE: 12/24/[address] Kinney. Case was discussed with staff of the patient, reviewed records, medication list and labs. This 73-year-old male who was admitted on 12/13/2018. The patient is not accepted at [facility] because of behavior disturbance, agitation. The nurse checked twice in the facility. The patient was agitated, confused, disoriented, laughing to himself, combative with a history of parkinsonism. The patient was diagnosed with dementia. The patient was unable to carry on a conversation for a long. Apparently at the beginning, I thought he was lucid, but then I realized he was confused, talking to himself, forgetful, restless, easily agitated, needing redirection. Continues to be unable to make safe plan for self-care. The patient has been compliant with the medication with no side effects, no sedation, no nausea, no extrapyramidal symptoms. He is on Seroquel 12.5 mg twice a day. He is on Exelon patch 1 tablet 1 daily. He is on Flomax and Namenda 5 mg daily, that is initiated recently. No side effects with the medication, no sedation, no nausea, no extrapyramidal symptoms. We will continue the patient in group therapy, milieu therapy, and adjust the medication as needed. His lab work, there was no lab work available on the chart. We will continue the patient in group therapy, milieu therapy, and adjust medication as needed. JOB# [id number]
[2018-12-25] MEDS: Pantoprazole 40 mg EC Tab PO SCH (08:40)
[2018-12-25] MEDS: Rivastigmine 4.6 mg/24 hr Tdm TD SCH (08:40)
--- NOTE | 2018-12-25 12:23 | Internal Medicine Prog Note ---
Internal Medicine Subjective - Subjective Patient seen and examined:: with staff, chart reviewed Patient is:: awake, non-verbal, non-interactive, in bed Per staff patient has:: no adverse event, no episodes of fall, poor oral intake , tolerating meds Internal Medicine Objective - Physical Exam Vitals and I&O: Vital Signs Temp 97.9 F 12/25/18 06:40 Pulse 81 12/25/18 06:40 Resp 18 12/25/18 08:00 BP 118/58 12/25/18 06:40 Pulse Ox 95 12/25/18 06:40 Intake & Output 12/24/18 12/25/18 12/25/18 18:59 06:59 18:59 Intake Total 1000 60 Balance 1000 60 Intake: Oral 1000 60 Other: # Voids 4 4 # Bowel Movements 1 0 Active Medications: Current Medications Acetaminophen (Tylenol) 650 mg PO Q4HR PRN PRN Reason: Mild Pain / Temp above 100 Stop: 02/11/19 22:23 Lorazepam (Ativan) 0.5 mg PO Q4H PRN; Protocol PRN Reason: Anxiety Stop: 02/11/19 22:23 Last Admin: 12/24/18 22:15 Dose: 0.5 mg Magnesium Hydroxide (Milk Of Magnesia) 30 ml PO HS PRN PRN Reason: Constipation Memantine (Namenda) 5 mg PO DAILY [facility] Stop: 02/19/19 15:59 Last Admin: 12/25/18 08:40 Dose: 5 mg Pantoprazole Sodium (Protonix) 40 mg PO DAILY [facility] Stop: 02/12/19 08:59 Last Admin: 12/25/18 08:40 Dose: 40 mg Quetiapine Fumarate (Seroquel) 12.5 mg PO BID [facility]; Protocol Stop: 02/14/19 08:59 Last Admin: 12/25/18 08:40 Dose: 12.5 mg Rivastigmine (Exelon 4.6 Mg/24 Hr Tdm) 1 patch TD DAILY [facility] Stop: 02/12/19 08:59 Last Admin: 12/25/18 08:40 Dose: 1 patch Tamsulosin HCl (Flomax) 0.4 mg PO HS [facility] Stop: 02/12/19 20:59 Last Admin: 12/24/18 20:53 Dose: 0.4 mg Zolpidem Tartrate (Ambien) 5 mg PO HS PRN PRN Reason: Insomnia Stop: 02/11/19 22:23 Last Admin: 12/24/18 23:19 Dose: 5 mg General: demented, disheveled, thin HEENT: NC/AT, PERRLA, EOMI Neck: Supple, No JVD Lungs: CTAB Cardiovascular: RRR, Normal S1, Normal S2, with murmur Abdomen: soft, non-tender, thin, positive bowel sound Extremities: excoriation, deformity Neurological: no change Internal Medicine Assmt/Plan - Assessment Assessment: ASSESSMENT AND PLAN: Parkinson's disorder, Alzheimer's dementia, BPH, gastroesophageal reflux disease. - Plan Plan: PLAN: We will place the patient on fall precaution. We will try to see what his medication for Parkinson's. Continue on Flomax. Continue on proton pump inhibitor. We will continue monitoring closely with you, Dr. Kinney. Nutritional Asmnt/Malnutr-PDOC - Dietary Evaluation Malnutrition Findings (Please click <Entered> for more info): Nutritional Asmnt/Malnutrition Start: 12/19/18 15: 45 Text: Status: Complete Freq: Protocol: Document 12/19/18 15:45 RINKU (Rec: 12/19/18 15:48 [email or web address]) Nutritional Asmnt/Malnutrition Patient General Information Nutritional Screening Low Risk Diagnosis Psychosis NOS Pertinent Medical Hx/Surgical Hx Parkinsons, Dementia (limited , no H&P) Subjective Information Pt is a 73-year-old male admitted on 12/13 d/t increased agitation, aggressive behavior, and anxiety. Pt is eating 80% of meals Per Meal/ Nutrition Activity Record. Dietary is currently providing an estimated 2790 kcals and 125 gm Pro, per Pt PO intake this is providing an estimated 2230 kcals and 100gm Pro to meet 100+% kcal and 100+% Pro needs- adequate to meet estimated nutritional needs. Pt has bruising, wounds are healing and scabbed over. HT: 57 WT: 195 LB (88.64 kg) ABW: 160 LB (72.61 kg) BMI: 30.54 (Obese) GI: WNL, Soft, Non-tender, Round BM: 12/17 x1 I/O: 480/Not Noted Skin: Area of concern Wound: LINNEA knees scabs. Lt Smith rash with pink. LT forearm bruise with discoloration. Oleksandr: 23 Diet Order: Regular Estimated Energy Needs: ( Geriatric, ABW) 1374-9562 kcals (25-30 kcals/ kg) 73-87g Pro (1.0-1.2 g/kg) 2888-9580 ml (25-30 ml/kg) Current Diet Order/ Nutrition Support Regular Pertinent Medications MOM (PRN), Protonix, Flomax Pertinent Labs No labs to report Nutritional Hx/Data Height 1.7 m Height (Calculated Centimeters) 170.2 Current Weight (lbs) 88.451 kg Weight (Calculated Kilograms) 88.5 Weight (Calculated Grams) 13897.5 [place] Body Weight 148 LB (67.27 kg) % [place] Body Weight 132 Body Mass Index (BMI) 30.5 Weight Status Obese GI Symptoms Last BM 12/17 x1 Skin Integrity/Comment: Wound: LINNEA knees scabs. Lt Smith rash with pink. LT forearm bruise with discoloration. Oleksandr: 23 Current %PO Good (75-100%) Estimated Nutritional Goals BEE in Kcals: Adj wt of IBW Calories/Kcals/Kg 25-30 Kcals Calculated 5017-7690 Protein: Adj wt of IBW Protein g/k.0-1.2 Protein Calculated 73-87 Fluid: ml 1445-8523 ml (25-30 ml/kg) Nutritional Problem 1. Problem Problem No nutrition diagnosis at this time. Etiology N/A Signs/Symptoms: N/A Malnutrition Related to Morbid Obesity Malnutrition related to morbid obesity No Intervention/Recommendation Comments Continue with Regular diet as ordered. Expected Outcomes/Goals Expected Outcomes/Goals 1. PO intake to continue to meet >75% of nutritional needs . 2. Monitor PO intake, wt, nutrition related labs, and skin integrity to trend WNL. 3. F/U as low risk in 7-10 days, 12/26-12/29
--- NOTE | 2018-12-25 23:50 | Progress Notes ---
DATE: 12/25/[address] Kinney. Case was discussed with staff of the patient, reviewed records. The patient continues to be confused, easily agitated. Continues to be unpredictable, impulsive, laughing to himself at times. He is demented, confused. The patient continues to be unable to make safe plan for self-care. Continues to look disheveled, disorganized, unable to take care of himself or make safe plan for self-care. He was initiated on Namenda 5 mg daily and he is also on Seroquel 12.5 mg twice a day and Exelon patch daily. No side effects with the medication, no sedation, no nausea, no extrapyramidal symptoms. We will continue outpatient group therapy, milieu therapy, and adjust medications as needed. [facility]# [id number]
[2018-12-26] MEDS: Pantoprazole 40 mg EC Tab PO SCH (08:53)
[2018-12-26] MEDS: Rivastigmine 4.6 mg/24 hr Tdm TD SCH (08:53)
--- NOTE | 2018-12-26 11:27 | Progress Notes ---
DATE: 12/26/[address] Kinney. Case was discussed with staff of the patient, reviewed records. The patient continues to be confused, unpredictable, impulsive, easily agitated at times combative, continues to have episodes of laughing to himself, talking to himself, forgetful. Continues to be unable to make safe plan for self-care, needing redirection. He has been compliant with the medication with no side effects, no sedation, no nausea, no extrapyramidal symptoms. I will be increasing his Namenda to twice a day to improve his cognition. We will continue to work with the patient in group therapy, milieu therapy, and adjust the medication as needed. JOB# [id number]
--- NOTE | 2018-12-26 12:17 | Internal Medicine Prog Note ---
Internal Medicine Subjective - Subjective Patient seen and examined:: with staff, chart reviewed Patient is:: awake, non-verbal, non-interactive, in bed Per staff patient has:: no adverse event, no episodes of fall, poor oral intake , tolerating meds Internal Medicine Objective - Physical Exam Vitals and I&O: Vital Signs Temp 97.8 F 12/26/18 06:03 Pulse 81 12/26/18 06:03 Resp 20 12/26/18 06:03 BP 119/76 12/26/18 06:03 Pulse Ox 97 12/26/18 06:03 Intake & Output 12/25/18 12/26/18 12/26/18 18:59 06:59 18:59 Intake Total 800 180 Balance 800 180 Intake: Oral 800 180 Other: # Voids 3 1 # Bowel Movements 1 1 Active Medications: Current Medications Acetaminophen (Tylenol) 650 mg PO Q4HR PRN PRN Reason: Mild Pain / Temp above 100 Stop: 02/11/19 22:23 Lorazepam (Ativan) 0.5 mg PO Q4H PRN; Protocol PRN Reason: Anxiety Stop: 02/11/19 22:23 Last Admin: 12/25/18 20:32 Dose: 0.5 mg Magnesium Hydroxide (Milk Of Magnesia) 30 ml PO HS PRN PRN Reason: Constipation Memantine (Namenda) 5 mg PO BID [facility] Stop: 02/24/19 08:59 Last Admin: 12/26/18 08:51 Dose: 5 mg Pantoprazole Sodium (Protonix) 40 mg PO DAILY [facility] Stop: 02/12/19 08:59 Last Admin: 12/26/18 08:53 Dose: 40 mg Quetiapine Fumarate (Seroquel) 12.5 mg PO BID [facility]; Protocol Stop: 02/14/19 08:59 Last Admin: 12/26/18 08:51 Dose: 12.5 mg Rivastigmine (Exelon 4.6 Mg/24 Hr Tdm) 1 patch TD DAILY [facility] Stop: 02/12/19 08:59 Last Admin: 12/26/18 08:53 Dose: 1 patch Tamsulosin HCl (Flomax) 0.4 mg PO HS [facility] Stop: 02/12/19 20:59 Last Admin: 12/25/18 20:32 Dose: 0.4 mg Zolpidem Tartrate (Ambien) 5 mg PO HS PRN PRN Reason: Insomnia Stop: 02/11/19 22:23 Last Admin: 12/25/18 21:15 Dose: 5 mg General: demented, disheveled, thin HEENT: NC/AT, PERRLA, EOMI Neck: Supple, No JVD Lungs: CTAB Cardiovascular: RRR, Normal S1, Normal S2, with murmur Abdomen: soft, non-tender, thin, positive bowel sound Extremities: excoriation, deformity Neurological: no change Internal Medicine Assmt/Plan - Assessment Assessment: ASSESSMENT AND PLAN: Parkinson's disorder, Alzheimer's dementia, BPH, gastroesophageal reflux disease. - Plan Plan: PLAN: We will place the patient on fall precaution. We will try to see what his medication for Parkinson's. Continue on Flomax. Continue on proton pump inhibitor. We will continue monitoring closely with you, Dr. Kinney. Nutritional Asmnt/Malnutr-PDOC - Dietary Evaluation Malnutrition Findings (Please click <Entered> for more info): Nutritional Asmnt/Malnutrition Start: 12/19/18 15: 45 Text: Status: Complete Freq: Protocol: Document 12/19/18 15:45 RINKU (Rec: 12/19/18 15:48 RINKU [email or web address]) Nutritional Asmnt/Malnutrition Patient General Information Nutritional Screening Low Risk Diagnosis Psychosis NOS Pertinent Medical Hx/Surgical Hx Parkinsons, Dementia (limited , no H&P) Subjective Information Pt is a 73-year-old male admitted on 12/13 d/t increased agitation, aggressive behavior, and anxiety. Pt is eating 80% of meals Per Meal/ Nutrition Activity Record. Dietary is currently providing an estimated 2790 kcals and 125 gm Pro, per Pt PO intake this is providing an estimated 2230 kcals and 100gm Pro to meet 100+% kcal and 100+% Pro needs- adequate to meet estimated nutritional needs. Pt has bruising, wounds are healing and scabbed over. HT: 57 WT: 195 LB (88.64 kg) ABW: 160 LB (72.61 kg) BMI: 30.54 (Obese) GI: WNL, Soft, Non-tender, Round BM: 12/17 x1 I/O: 480/Not Noted Skin: Area of concern Wound: LINNEA knees scabs. Lt Smith rash with pink. LT forearm bruise with discoloration. Oleksandr: 23 Diet Order: Regular Estimated Energy Needs: ( Geriatric, ABW) 1027-2392 kcals (25-30 kcals/ kg) 73-87g Pro (1.0-1.2 g/kg) 4850-5812 ml (25-30 ml/kg) Current Diet Order/ Nutrition Support Regular Pertinent Medications MOM (PRN), Protonix, Flomax Pertinent Labs No labs to report Nutritional Hx/Data Height 1.7 m Height (Calculated Centimeters) 170.2 Current Weight (lbs) 88.451 kg Weight (Calculated Kilograms) 88.5 Weight (Calculated Grams) 89909.5 [place] Body Weight 148 LB (67.27 kg) % [place] Body Weight 132 Body Mass Index (BMI) 30.5 Weight Status Obese GI Symptoms Last BM 12/17 x1 Skin Integrity/Comment: Wound: LINNEA knees scabs. Lt Smith rash with pink. LT forearm bruise with discoloration. Oleksandr: 23 Current %PO Good (75-100%) Estimated Nutritional Goals BEE in Kcals: Adj wt of IBW Calories/Kcals/Kg 25-30 Kcals Calculated 2793-0894 Protein: Adj wt of IBW Protein g/k.0-1.2 Protein Calculated 73-87 Fluid: ml 5031-4467 ml (25-30 ml/kg) Nutritional Problem 1. Problem Problem No nutrition diagnosis at this time. Etiology N/A Signs/Symptoms: N/A Malnutrition Related to Morbid Obesity Malnutrition related to morbid obesity No Intervention/Recommendation Comments Continue with Regular diet as ordered. Expected Outcomes/Goals Expected Outcomes/Goals 1. PO intake to continue to meet >75% of nutritional needs . 2. Monitor PO intake, wt, nutrition related labs, and skin integrity to trend WNL. 3. F/U as low risk in 7-10 days, 12/26-12/29
[2018-12-27] MEDS: Pantoprazole 40 mg EC Tab PO SCH (09:08)
[2018-12-27] MEDS: Rivastigmine 4.6 mg/24 hr Tdm TD SCH (09:10)
--- NOTE | 2018-12-27 12:14 | Internal Medicine Prog Note ---
Internal Medicine Subjective - Subjective Patient seen and examined:: with staff, chart reviewed Patient is:: awake, non-verbal, non-interactive, in bed Per staff patient has:: no adverse event, no episodes of fall, poor oral intake , tolerating meds Internal Medicine Objective - Physical Exam Vitals and I&O: Vital Signs Temp 98.7 F 12/27/18 06:22 Pulse 87 12/27/18 08:00 Resp 17 12/27/18 08:00 BP 115/56 12/27/18 08:00 Pulse Ox 97 12/27/18 06:22 Intake & Output 12/26/18 12/27/18 12/27/18 18:59 06:59 18:59 Intake Total 1200 120 Balance 1200 120 Intake: Oral 1200 120 Other: # Voids 4 3 # Bowel Movements 0 Active Medications: Current Medications Acetaminophen (Tylenol) 650 mg PO Q4HR PRN PRN Reason: Mild Pain / Temp above 100 Stop: 02/11/19 22:23 Lorazepam (Ativan) 0.5 mg PO Q4H PRN; Protocol PRN Reason: Anxiety Stop: 02/11/19 22:23 Last Admin: 12/27/18 05:11 Dose: 0.5 mg Magnesium Hydroxide (Milk Of Magnesia) 30 ml PO HS PRN PRN Reason: Constipation Memantine (Namenda) 5 mg PO BID [facility] Stop: 02/24/19 08:59 Last Admin: 12/27/18 09:08 Dose: 5 mg Pantoprazole Sodium (Protonix) 40 mg PO DAILY [facility] Stop: 02/12/19 08:59 Last Admin: 12/27/18 09:08 Dose: 40 mg Quetiapine Fumarate (Seroquel) 12.5 mg PO BID [facility]; Protocol Stop: 02/14/19 08:59 Last Admin: 12/27/18 09:08 Dose: 12.5 mg Rivastigmine (Exelon 4.6 Mg/24 Hr Tdm) 1 patch TD DAILY [facility] Stop: 02/12/19 08:59 Last Admin: 12/27/18 09:10 Dose: 1 patch Tamsulosin HCl (Flomax) 0.4 mg PO HS [facility] Stop: 02/12/19 20:59 Last Admin: 12/26/18 20:28 Dose: 0.4 mg Zolpidem Tartrate (Ambien) 5 mg PO HS PRN PRN Reason: Insomnia Stop: 02/11/19 22:23 Last Admin: 12/26/18 20:28 Dose: 5 mg General: demented, disheveled, thin HEENT: NC/AT, PERRLA, EOMI Neck: Supple, No JVD Lungs: CTAB Cardiovascular: RRR, Normal S1, Normal S2, with murmur Abdomen: soft, non-tender, thin, positive bowel sound Extremities: excoriation, deformity Neurological: no change Internal Medicine Assmt/Plan - Assessment Assessment: ASSESSMENT AND PLAN: Parkinson's disorder, Alzheimer's dementia, BPH, gastroesophageal reflux disease. - Plan Plan: PLAN: We will place the patient on fall precaution. We will try to see what his medication for Parkinson's. Continue on Flomax. Continue on proton pump inhibitor. We will continue monitoring closely with you, Dr. Kinney. Nutritional Asmnt/Malnutr-PDOC - Dietary Evaluation Malnutrition Findings (Please click <Entered> for more info): Nutritional Asmnt/Malnutrition Start: 12/19/18 15: 45 Text: Status: Complete Freq: Protocol: Document 12/19/18 15:45 RINKU (Rec: 12/19/18 15:48 RINKU [email or web address]) Nutritional Asmnt/Malnutrition Patient General Information Nutritional Screening Low Risk Diagnosis Psychosis NOS Pertinent Medical Hx/Surgical Hx Parkinsons, Dementia (limited , no H&P) Subjective Information Pt is a 73-year-old male admitted on 12/13 d/t increased agitation, aggressive behavior, and anxiety. Pt is eating 80% of meals Per Meal/ Nutrition Activity Record. Dietary is currently providing an estimated 2790 kcals and 125 gm Pro, per Pt PO intake this is providing an estimated 2230 kcals and 100gm Pro to meet 100+% kcal and 100+% Pro needs- adequate to meet estimated nutritional needs. Pt has bruising, wounds are healing and scabbed over. HT: 57 WT: 195 LB (88.64 kg) ABW: 160 LB (72.61 kg) BMI: 30.54 (Obese) GI: WNL, Soft, Non-tender, Round BM: 12/17 x1 I/O: 480/Not Noted Skin: Area of concern Wound: LINNEA knees scabs. Lt Smith rash with pink. LT forearm bruise with discoloration. Oleksandr: 23 Diet Order: Regular Estimated Energy Needs: ( Geriatric, ABW) 4479-5396 kcals (25-30 kcals/ kg) 73-87g Pro (1.0-1.2 g/kg) 0991-3772 ml (25-30 ml/kg) Current Diet Order/ Nutrition Support Regular Pertinent Medications MOM (PRN), Protonix, Flomax Pertinent Labs No labs to report Nutritional Hx/Data Height 1.7 m Height (Calculated Centimeters) 170.2 Current Weight (lbs) 88.451 kg Weight (Calculated Kilograms) 88.5 Weight (Calculated Grams) 97171.5 [place] Body Weight 148 LB (67.27 kg) % [place] Body Weight 132 Body Mass Index (BMI) 30.5 Weight Status Obese GI Symptoms Last BM 12/17 x1 Skin Integrity/Comment: Wound: LINNEA knees scabs. Lt Smith rash with pink. LT forearm bruise with discoloration. Oleksandr: 23 Current %PO Good (75-100%) Estimated Nutritional Goals BEE in Kcals: Adj wt of IBW Calories/Kcals/Kg 25-30 Kcals Calculated 4005-1757 Protein: Adj wt of IBW Protein g/k.0-1.2 Protein Calculated 73-87 Fluid: ml 0372-6781 ml (25-30 ml/kg) Nutritional Problem 1. Problem Problem No nutrition diagnosis at this time. Etiology N/A Signs/Symptoms: N/A Malnutrition Related to Morbid Obesity Malnutrition related to morbid obesity No Intervention/Recommendation Comments Continue with Regular diet as ordered. Expected Outcomes/Goals Expected Outcomes/Goals 1. PO intake to continue to meet >75% of nutritional needs . 2. Monitor PO intake, wt, nutrition related labs, and skin integrity to trend WNL. 3. F/U as low risk in 7-10 days, 12/26-12/29
--- NOTE | 2018-12-27 20:51 | Progress Notes ---
DATE: 12/27/2018 Case was discussed with staff of the patient, reviewed his lab work. The patient continues to be confused, unable to carry on a conversation, unpredictable, impulsive, needing redirection. No side effects with the medication. Demented, confused, and impulsive. No sedation, no nausea, no extrapyramidal symptoms. We will continue to work with the patient in group therapy, milieu therapy, and adjust the medication as needed. [facility]# [id number]
[2018-12-28] MEDS: Rivastigmine 4.6 mg/24 hr Tdm TD SCH (08:20)
[2018-12-28] MEDS: Pantoprazole 40 mg EC Tab PO SCH (08:23)
--- NOTE | 2018-12-28 14:46 | Internal Medicine Prog Note ---
Internal Medicine Subjective - Subjective Patient seen and examined:: with staff, chart reviewed Patient is:: awake, non-verbal, non-interactive, in bed Per staff patient has:: no adverse event, no episodes of fall, poor oral intake , tolerating meds Internal Medicine Objective - Physical Exam Vitals and I&O: Vital Signs Temp 97 F 12/28/18 06:28 Pulse 66 12/28/18 06:28 Resp 19 12/28/18 06:28 BP 147/69 12/28/18 06:28 Pulse Ox 97 12/28/18 06:28 Intake & Output 12/27/18 12/28/18 12/28/18 18:59 06:59 18:59 Intake Total 1600 120 Balance 1600 120 Intake: Oral 1600 120 Other: # Voids 4 3 # Bowel Movements 2 Active Medications: Current Medications Acetaminophen (Tylenol) 650 mg PO Q4HR PRN PRN Reason: Mild Pain / Temp above 100 Stop: 02/11/19 22:23 Donepezil HCl (Aricept) 5 mg PO HS [facility] Stop: 02/26/19 20:59 Lorazepam (Ativan) 0.5 mg PO Q4H PRN; Protocol PRN Reason: Anxiety Stop: 02/11/19 22:23 Last Admin: 12/27/18 05:11 Dose: 0.5 mg Magnesium Hydroxide (Milk Of Magnesia) 30 ml PO HS PRN PRN Reason: Constipation Memantine (Namenda) 5 mg PO BID [facility] Stop: 02/24/19 08:59 Last Admin: 12/28/18 08:22 Dose: 5 mg Pantoprazole Sodium (Protonix) 40 mg PO DAILY [facility] Stop: 02/12/19 08:59 Last Admin: 12/28/18 08:23 Dose: 40 mg Quetiapine Fumarate (Seroquel) 12.5 mg PO BID [facility]; Protocol Stop: 02/14/19 08:59 Last Admin: 12/28/18 08:22 Dose: 12.5 mg Rivastigmine (Exelon 4.6 Mg/24 Hr Tdm) 1 patch TD DAILY [facility] Stop: 02/12/19 08:59 Last Admin: 12/28/18 08:20 Dose: 1 patch Tamsulosin HCl (Flomax) 0.4 mg PO HS [facility] Stop: 02/12/19 20:59 Last Admin: 12/27/18 20:59 Dose: 0.4 mg Zolpidem Tartrate (Ambien) 5 mg PO HS PRN PRN Reason: Insomnia Stop: 02/11/19 22:23 Last Admin: 12/27/18 21:00 Dose: 5 mg General: demented, disheveled, thin HEENT: NC/AT, PERRLA, EOMI Neck: Supple, No JVD Lungs: CTAB Cardiovascular: RRR, Normal S1, Normal S2, with murmur Abdomen: soft, non-tender, thin, positive bowel sound Extremities: excoriation, deformity Neurological: no change Internal Medicine Assmt/Plan - Assessment Assessment: ASSESSMENT AND PLAN: Parkinson's disorder, Alzheimer's dementia, BPH, gastroesophageal reflux disease. - Plan Plan: PLAN: We will place the patient on fall precaution. We will try to see what his medication for Parkinson's. Continue on Flomax. Continue on proton pump inhibitor. We will continue monitoring closely with you, Dr. Kinney. Nutritional Asmnt/Malnutr-PDOC - Dietary Evaluation Malnutrition Findings (Please click <Entered> for more info): Nutritional Asmnt/Malnutrition Start: 12/19/18 15: 45 Text: Status: Complete Freq: Protocol: Document 12/19/18 15:45 RINKU (Rec: 12/19/18 15:48 RINKU [id number]) Nutritional Asmnt/Malnutrition Patient General Information Nutritional Screening Low Risk Diagnosis Psychosis NOS Pertinent Medical Hx/Surgical Hx Parkinsons, Dementia (limited , no H&P) Subjective Information Pt is a 73-year-old male admitted on 12/13 d/t increased agitation, aggressive behavior, and anxiety. Pt is eating 80% of meals Per Meal/ Nutrition Activity Record. Dietary is currently providing an estimated 2790 kcals and 125 gm Pro, per Pt PO intake this is providing an estimated 2230 kcals and 100gm Pro to meet 100+% kcal and 100+% Pro needs- adequate to meet estimated nutritional needs. Pt has bruising, wounds are healing and scabbed over. HT: 57 WT: 195 LB (88.64 kg) ABW: 160 LB (72.61 kg) BMI: 30.54 (Obese) GI: WNL, Soft, Non-tender, Round BM: 12/17 x1 I/O: 480/Not Noted Skin: Area of concern Wound: LINNEA knees scabs. Lt Smith rash with pink. LT forearm bruise with discoloration. Oleksandr: 23 Diet Order: Regular Estimated Energy Needs: ( Geriatric, ABW) 7542-8902 kcals (25-30 kcals/ kg) 73-87g Pro (1.0-1.2 g/kg) 5930-9870 ml (25-30 ml/kg) Current Diet Order/ Nutrition Support Regular Pertinent Medications MOM (PRN), Protonix, Flomax Pertinent Labs No labs to report Nutritional Hx/Data Height 1.7 m Height (Calculated Centimeters) 170.2 Current Weight (lbs) 88.451 kg Weight (Calculated Kilograms) 88.5 Weight (Calculated Grams) 49174.5 [place] Body Weight 148 LB (67.27 kg) % [place] Body Weight 132 Body Mass Index (BMI) 30.5 Weight Status Obese GI Symptoms Last BM 12/17 x1 Skin Integrity/Comment: Wound: LINNEA knees scabs. Lt Smith rash with pink. LT forearm bruise with discoloration. Oleksandr: 23 Current %PO Good (75-100%) Estimated Nutritional Goals BEE in Kcals: Adj wt of IBW Calories/Kcals/Kg 25-30 Kcals Calculated 1203-7005 Protein: Adj wt of IBW Protein g/k.0-1.2 Protein Calculated 73-87 Fluid: ml 0584-3001 ml (25-30 ml/kg) Nutritional Problem 1. Problem Problem No nutrition diagnosis at this time. Etiology N/A Signs/Symptoms: N/A Malnutrition Related to Morbid Obesity Malnutrition related to morbid obesity No Intervention/Recommendation Comments Continue with Regular diet as ordered. Expected Outcomes/Goals Expected Outcomes/Goals 1. PO intake to continue to meet >75% of nutritional needs . 2. Monitor PO intake, wt, nutrition related labs, and skin integrity to trend WNL. 3. F/U as low risk in 7-10 days, 12/26-12/29
[2018-12-28] MEDS ORDERED: Menthol/Zinc Oxide Oint 113gm Tube TP PRN (16:41)
--- NOTE | 2018-12-28 23:52 | Progress Notes ---
DATE: 12/28/2018 SUBJECTIVE: Case was discussed with staff of the patient, reviewed records. The patient continues to have poor insight, continues to be confused, unpredictable, impulsive, needing redirection. He is demented. He continues to be unable to make safe plan for self-care. No side effects with the medication, no sedation, no nausea, and no extrapyramidal symptoms. He tolerated the increase in Namenda 5 mg twice a day and I will be adding Aricept to his medication to help improve his cognition and memory. We will continue to work with the patient in group therapy, milieu therapy, and adjust the medications as needed. JOB# [id number]
[2018-12-29] MEDS: Pantoprazole 40 mg EC Tab PO SCH (09:56)
[2018-12-29] MEDS: Rivastigmine 4.6 mg/24 hr Tdm TD SCH (09:59)
--- NOTE | 2018-12-29 13:58 | Internal Medicine Prog Note ---
Internal Medicine Subjective - Subjective Patient seen and examined:: with staff, chart reviewed Patient is:: awake, non-verbal, non-interactive, in bed Per staff patient has:: no adverse event, no episodes of fall, poor oral intake , tolerating meds Internal Medicine Objective - Physical Exam Vitals and I&O: Vital Signs Temp 97.8 F 12/29/18 06:50 Pulse 70 12/29/18 06:50 Resp 19 12/29/18 06:50 BP 110/70 12/29/18 06:50 Pulse Ox 100 12/29/18 06:50 Intake & Output 12/28/18 12/29/18 12/29/18 18:59 06:59 18:59 Intake Total 1300 Balance 1300 Intake: Oral 1300 Other: # Voids 3 # Bowel Movements 0 Active Medications: Current Medications Acetaminophen (Tylenol) 650 mg PO Q4HR PRN PRN Reason: Mild Pain / Temp above 100 Stop: 02/11/19 22:23 Calamine/Phenol (Calmoseptine) 1 appl TP QID PRN PRN Reason: Skin Irritation Stop: 02/26/19 16:40 Donepezil HCl (Aricept) 5 mg PO HS [facility] Stop: 02/26/19 20:59 Last Admin: 12/28/18 21:05 Dose: 5 mg Lorazepam (Ativan) 0.5 mg PO Q4H PRN; Protocol PRN Reason: Anxiety Stop: 02/11/19 22:23 Last Admin: 12/29/18 10:01 Dose: 0.5 mg Magnesium Hydroxide (Milk Of Magnesia) 30 ml PO HS PRN PRN Reason: Constipation Memantine (Namenda) 5 mg PO BID [facility] Stop: 02/24/19 08:59 Last Admin: 12/29/18 09:56 Dose: 5 mg Pantoprazole Sodium (Protonix) 40 mg PO DAILY [facility] Stop: 02/12/19 08:59 Last Admin: 12/29/18 09:56 Dose: 40 mg Quetiapine Fumarate (Seroquel) 12.5 mg PO BID [facility]; Protocol Stop: 02/14/19 08:59 Last Admin: 12/29/18 10:00 Dose: 12.5 mg Rivastigmine (Exelon 4.6 Mg/24 Hr Tdm) 1 patch TD DAILY [facility] Stop: 02/12/19 08:59 Last Admin: 12/29/18 09:59 Dose: 1 patch Tamsulosin HCl (Flomax) 0.4 mg PO HS [facility] Stop: 02/12/19 20:59 Last Admin: 12/28/18 21:05 Dose: 0.4 mg Zolpidem Tartrate (Ambien) 5 mg PO HS PRN PRN Reason: Insomnia Stop: 02/11/19 22:23 Last Admin: 12/28/18 21:05 Dose: 5 mg General: demented, disheveled, thin HEENT: NC/AT, PERRLA, EOMI Neck: Supple, No JVD Lungs: CTAB Cardiovascular: RRR, Normal S1, Normal S2, with murmur Abdomen: soft, non-tender, thin, positive bowel sound Extremities: excoriation, deformity Neurological: no change Internal Medicine Assmt/Plan - Assessment Assessment: ASSESSMENT AND PLAN: Parkinson's disorder, Alzheimer's dementia, BPH, gastroesophageal reflux disease. - Plan Plan: PLAN: We will place the patient on fall precaution. We will try to see what his medication for Parkinson's. Continue on Flomax. Continue on proton pump inhibitor. We will continue monitoring closely with you, Dr. Kinney. Nutritional Asmnt/Malnutr-PDOC - Dietary Evaluation Malnutrition Findings (Please click <Entered> for more info): Nutritional Asmnt/Malnutrition Start: 12/19/18 15: 45 Text: Status: Complete Freq: Protocol: Document 12/19/18 15:45 RINKU (Rec: 12/19/18 15:48 RINKU [id number]) Nutritional Asmnt/Malnutrition Patient General Information Nutritional Screening Low Risk Diagnosis Psychosis NOS Pertinent Medical Hx/Surgical Hx Parkinsons, Dementia (limited , no H&P) Subjective Information Pt is a 73-year-old male admitted on 12/13 d/t increased agitation, aggressive behavior, and anxiety. Pt is eating 80% of meals Per Meal/ Nutrition Activity Record. Dietary is currently providing an estimated 2790 kcals and 125 gm Pro, per Pt PO intake this is providing an estimated 2230 kcals and 100gm Pro to meet 100+% kcal and 100+% Pro needs- adequate to meet estimated nutritional needs. Pt has bruising, wounds are healing and scabbed over. HT: 57 WT: 195 LB (88.64 kg) ABW: 160 LB (72.61 kg) BMI: 30.54 (Obese) GI: WNL, Soft, Non-tender, Round BM: 12/17 x1 I/O: 480/Not Noted Skin: Area of concern Wound: LINNEA knees scabs. Lt Smith rash with pink. LT forearm bruise with discoloration. Oleksandr: 23 Diet Order: Regular Estimated Energy Needs: ( Geriatric, ABW) 7257-8631 kcals (25-30 kcals/ kg) 73-87g Pro (1.0-1.2 g/kg) 5713-7652 ml (25-30 ml/kg) Current Diet Order/ Nutrition Support Regular Pertinent Medications MOM (PRN), Protonix, Flomax Pertinent Labs No labs to report Nutritional Hx/Data Height 1.7 m Height (Calculated Centimeters) 170.2 Current Weight (lbs) 88.451 kg Weight (Calculated Kilograms) 88.5 Weight (Calculated Grams) 84020.5 [place] Body Weight 148 LB (67.27 kg) % [place] Body Weight 132 Body Mass Index (BMI) 30.5 Weight Status Obese GI Symptoms Last BM 12/17 x1 Skin Integrity/Comment: Wound: LINNEA knees scabs. Lt Smith rash with pink. LT forearm bruise with discoloration. Oleksandr: 23 Current %PO Good (75-100%) Estimated Nutritional Goals BEE in Kcals: Adj wt of IBW Calories/Kcals/Kg 25-30 Kcals Calculated 1849-0460 Protein: Adj wt of IBW Protein g/k.0-1.2 Protein Calculated 73-87 Fluid: ml 8615-1156 ml (25-30 ml/kg) Nutritional Problem 1. Problem Problem No nutrition diagnosis at this time. Etiology N/A Signs/Symptoms: N/A Malnutrition Related to Morbid Obesity Malnutrition related to morbid obesity No Intervention/Recommendation Comments Continue with Regular diet as ordered. Expected Outcomes/Goals Expected Outcomes/Goals 1. PO intake to continue to meet >75% of nutritional needs . 2. Monitor PO intake, wt, nutrition related labs, and skin integrity to trend WNL. 3. F/U as low risk in 7-10 days, 12/26-12/29
--- NOTE | 2018-12-30 03:58 | Progress Notes ---
DATE: 12/29/2018 SUBJECTIVE: The patient was seen and evaluated. The patient's chart reviewed. Nursing staff reported he continues to need redirection, does not know where he is. Today on [id number] evaluation, the patient reports that he was brought here by his son. When asked to further elaborate, he mostly just looks at the floor and points to the nursing staff and become selectively mute and does not engage in any more. No agitation or aggressive behaviors noted. MENTAL STATUS EXAMINATION: Neurocognitive impaired, poor memory, disengaged. ASSESSMENT AND PLAN: History of severe dementia who is tolerating the Namenda and the recent addition of the Aricept. We will continue with primary psychiatrist's treatment plan and goals. [facility]# [id number]
[2018-12-30] MEDS: Pantoprazole 40 mg EC Tab PO SCH (09:04)
[2018-12-30] MEDS: Rivastigmine 4.6 mg/24 hr Tdm TD SCH (09:04)
--- NOTE | 2018-12-30 12:37 | Internal Medicine Prog Note ---
Internal Medicine Subjective - Subjective Service Date: 12/30/18 Patient is:: awake, non-verbal, non-interactive, in bed Per staff patient has:: no adverse event, no episodes of fall, poor oral intake , tolerating meds Internal Medicine Objective - Physical Exam Vitals and I&O: Vital Signs Temp 97.2 F 12/30/18 06:46 Pulse 73 12/30/18 06:46 Resp 17 12/30/18 08:00 BP 117/69 12/30/18 06:46 Pulse Ox 97 12/30/18 06:46 Intake & Output 12/29/18 12/30/18 12/30/18 18:59 06:59 18:59 Intake Total 1200 240 Balance 1200 240 Intake: Oral 1200 240 Other: # Voids 3 1 # Bowel Movements 0 Active Medications: Current Medications Acetaminophen (Tylenol) 650 mg PO Q4HR PRN PRN Reason: Mild Pain / Temp above 100 Stop: 02/11/19 22:23 Calamine/Phenol (Calmoseptine) 1 appl TP QID PRN PRN Reason: Skin Irritation Stop: 02/26/19 16:40 Donepezil HCl (Aricept) 5 mg PO HS [facility] Stop: 02/26/19 20:59 Last Admin: 12/29/18 21:11 Dose: 5 mg Lorazepam (Ativan) 0.5 mg PO Q4H PRN; Protocol PRN Reason: Anxiety Stop: 02/11/19 22:23 Last Admin: 12/29/18 17:48 Dose: 0.5 mg Magnesium Hydroxide (Milk Of Magnesia) 30 ml PO HS PRN PRN Reason: Constipation Memantine (Namenda) 5 mg PO BID [facility] Stop: 02/24/19 08:59 Last Admin: 12/30/18 09:04 Dose: 5 mg Pantoprazole Sodium (Protonix) 40 mg PO DAILY [facility] Stop: 02/12/19 08:59 Last Admin: 12/30/18 09:04 Dose: 40 mg Quetiapine Fumarate (Seroquel) 12.5 mg PO BID [facility]; Protocol Stop: 02/14/19 08:59 Last Admin: 12/30/18 09:04 Dose: 12.5 mg Rivastigmine (Exelon 4.6 Mg/24 Hr Tdm) 1 patch TD DAILY [facility] Stop: 02/12/19 08:59 Last Admin: 12/30/18 09:04 Dose: 1 patch Tamsulosin HCl (Flomax) 0.4 mg PO HS [facility] Stop: 02/12/19 20:59 Last Admin: 12/29/18 21:11 Dose: 0.4 mg Zolpidem Tartrate (Ambien) 5 mg PO HS PRN PRN Reason: Insomnia Stop: 02/11/19 22:23 Last Admin: 12/29/18 21:11 Dose: 5 mg General: demented, disheveled, thin HEENT: NC/AT, PERRLA, EOMI Neck: Supple, No JVD Lungs: CTAB Cardiovascular: RRR, Normal S1, Normal S2, with murmur Abdomen: soft, non-tender, thin, positive bowel sound Extremities: excoriation, deformity Neurological: no change Internal Medicine Assmt/Plan - Assessment Assessment: ASSESSMENT AND PLAN: Parkinson's disorder, Alzheimer's dementia, BPH, gastroesophageal reflux disease. - Plan Plan: PLAN: We will place the patient on fall precaution. We will try to see what his medication for Parkinson's. Continue on Flomax. Continue on proton pump inhibitor. We will continue monitoring closely with you, Dr. Kinney. Nutritional Asmnt/Malnutr-PDOC - Dietary Evaluation Malnutrition Findings (Please click <Entered> for more info): Nutritional Asmnt/Malnutrition Start: 12/19/18 15: 45 Text: Status: Complete Freq: Protocol: Document 12/19/18 15:45 RINKU (Rec: 12/19/18 15:48 RINKU [id number]) Nutritional Asmnt/Malnutrition Patient General Information Nutritional Screening Low Risk Diagnosis Psychosis NOS Pertinent Medical Hx/Surgical Hx Parkinsons, Dementia (limited , no H&P) Subjective Information Pt is a 73-year-old male admitted on 12/13 d/t increased agitation, aggressive behavior, and anxiety. Pt is eating 80% of meals Per Meal/ Nutrition Activity Record. Dietary is currently providing an estimated 2790 kcals and 125 gm Pro, per Pt PO intake this is providing an estimated 2230 kcals and 100gm Pro to meet 100+% kcal and 100+% Pro needs- adequate to meet estimated nutritional needs. Pt has bruising, wounds are healing and scabbed over. HT: 57 WT: 195 LB (88.64 kg) ABW: 160 LB (72.61 kg) BMI: 30.54 (Obese) GI: WNL, Soft, Non-tender, Round BM: 12/17 x1 I/O: 480/Not Noted Skin: Area of concern Wound: LINNEA knees scabs. Lt Smith rash with pink. LT forearm bruise with discoloration. Oleksandr: 23 Diet Order: Regular Estimated Energy Needs: ( Geriatric, ABW) 2077-0871 kcals (25-30 kcals/ kg) 73-87g Pro (1.0-1.2 g/kg) 2839-4990 ml (25-30 ml/kg) Current Diet Order/ Nutrition Support Regular Pertinent Medications MOM (PRN), Protonix, Flomax Pertinent Labs No labs to report Nutritional Hx/Data Height 5 ft 7 in Height (Calculated Centimeters) 170.2 Current Weight (lbs) 195 lb Weight (Calculated Kilograms) 88.5 Weight (Calculated Grams) 69290.5 [place] Body Weight 148 LB (67.27 kg) % [place] Body Weight 132 Body Mass Index (BMI) 30.5 Weight Status Obese GI Symptoms Last BM 12/17 x1 Skin Integrity/Comment: Wound: LINNEA knees scabs. Lt Smith rash with pink. LT forearm bruise with discoloration. Oleksnadr: 23 Current %PO Good (75-100%) Estimated Nutritional Goals BEE in Kcals: Adj wt of IBW Calories/Kcals/Kg 25-30 Kcals Calculated 3128-1582 Protein: Adj wt of IBW Protein g/k.0-1.2 Protein Calculated 73-87 Fluid: ml 4664-7217 ml (25-30 ml/kg) Nutritional Problem 1. Problem Problem No nutrition diagnosis at this time. Etiology N/A Signs/Symptoms: N/A Malnutrition Related to Morbid Obesity Malnutrition related to morbid obesity No Intervention/Recommendation Comments Continue with Regular diet as ordered. Expected Outcomes/Goals Expected Outcomes/Goals 1. PO intake to continue to meet >75% of nutritional needs . 2. Monitor PO intake, wt, nutrition related labs, and skin integrity to trend WNL. 3. F/U as low risk in 7-10 days, 12/26-12/29
--- NOTE | 2018-12-30 21:33 | Progress Notes ---
DATE: 12/30/2018 SUBJECTIVE: The patient was seen and evaluated. The patient's chart reviewed. Nursing staff reported the patient mostly just sits and stares at the wall. Today on [id number] evaluation, the patient is stating mostly looking at the floor than the wall, selectively mute and poor ability to engage in conversation. MENTAL STATUS EXAMINATION: Poor memory, disengaged, sad affect. ASSESSMENT PLAN: Dementia with behavior disturbances. Continue with the current medication regimen. Continue with primary psychiatric treatment plan. Continue to reach steady state and continue working with mental director case for disposition when further psychiatrically stabilized. JOB# [id number]
[2018-12-31] MEDS: Rivastigmine 4.6 mg/24 hr Tdm TD SCH (08:24)
[2018-12-31] MEDS: Pantoprazole 40 mg EC Tab PO SCH (08:27)
--- NOTE | 2018-12-31 11:42 | Internal Medicine Prog Note ---
Internal Medicine Subjective - Subjective Patient seen and examined:: with staff, chart reviewed Patient is:: awake, non-verbal, non-interactive, in bed Per staff patient has:: no adverse event, no episodes of fall, poor oral intake , tolerating meds Internal Medicine Objective - Physical Exam Vitals and I&O: Vital Signs Temp 97.8 F 12/31/18 06:35 Pulse 64 12/31/18 06:35 Resp 17 12/31/18 08:00 BP 136/65 12/31/18 06:35 Pulse Ox 97 12/31/18 06:35 Intake & Output 12/30/18 12/31/18 12/31/18 18:59 06:59 18:59 Intake Total 1000 120 Balance 1000 120 Intake: Oral 1000 120 Other: # Voids 4 3 # Bowel Movements 2 0 Active Medications: Current Medications Acetaminophen (Tylenol) 650 mg PO Q4HR PRN PRN Reason: Mild Pain / Temp above 100 Stop: 02/11/19 22:23 Calamine/Phenol (Calmoseptine) 1 appl TP QID PRN PRN Reason: Skin Irritation Stop: 02/26/19 16:40 Donepezil HCl (Aricept) 5 mg PO HS [facility] Stop: 02/26/19 20:59 Last Admin: 12/30/18 20:38 Dose: 5 mg Lorazepam (Ativan) 0.5 mg PO Q4H PRN; Protocol PRN Reason: Anxiety Stop: 02/11/19 22:23 Last Admin: 12/29/18 17:48 Dose: 0.5 mg Magnesium Hydroxide (Milk Of Magnesia) 30 ml PO HS PRN PRN Reason: Constipation Memantine (Namenda) 5 mg PO BID [facility] Stop: 02/24/19 08:59 Last Admin: 12/31/18 08:24 Dose: 5 mg Pantoprazole Sodium (Protonix) 40 mg PO DAILY [facility] Stop: 02/12/19 08:59 Last Admin: 12/31/18 08:27 Dose: 40 mg Quetiapine Fumarate (Seroquel) 12.5 mg PO BID [facility]; Protocol Stop: 02/14/19 08:59 Last Admin: 12/31/18 08:24 Dose: 12.5 mg Rivastigmine (Exelon 4.6 Mg/24 Hr Tdm) 1 patch TD DAILY [facility] Stop: 02/12/19 08:59 Last Admin: 12/31/18 08:24 Dose: 1 patch Tamsulosin HCl (Flomax) 0.4 mg PO HS [facility] Stop: 02/12/19 20:59 Last Admin: 12/30/18 20:38 Dose: 0.4 mg Zolpidem Tartrate (Ambien) 5 mg PO HS PRN PRN Reason: Insomnia Stop: 02/11/19 22:23 Last Admin: 12/30/18 20:39 Dose: 5 mg General: demented, disheveled, thin HEENT: NC/AT, PERRLA, EOMI Neck: Supple, No JVD Lungs: CTAB Cardiovascular: RRR, Normal S1, Normal S2, with murmur Abdomen: soft, non-tender, thin, positive bowel sound Extremities: excoriation, deformity Neurological: no change Internal Medicine Assmt/Plan - Assessment Assessment: ASSESSMENT AND PLAN: Parkinson's disorder, Alzheimer's dementia, BPH, gastroesophageal reflux disease. - Plan Plan: PLAN: We will place the patient on fall precaution. We will try to see what his medication for Parkinson's. Continue on Flomax. Continue on proton pump inhibitor. We will continue monitoring closely with you, Dr. Kinney. Nutritional Asmnt/Malnutr-PDOC - Dietary Evaluation Malnutrition Findings (Please click <Entered> for more info): Nutritional Asmnt/Malnutrition Start: 12/19/18 15: 45 Text: Status: Complete Freq: Protocol: Document 12/19/18 15:45 RINKU (Rec: 12/19/18 15:48 RINKU [id number]) Nutritional Asmnt/Malnutrition Patient General Information Nutritional Screening Low Risk Diagnosis Psychosis NOS Pertinent Medical Hx/Surgical Hx Parkinsons, Dementia (limited , no H&P) Subjective Information Pt is a 73-year-old male admitted on 12/13 d/t increased agitation, aggressive behavior, and anxiety. Pt is eating 80% of meals Per Meal/ Nutrition Activity Record. Dietary is currently providing an estimated 2790 kcals and 125 gm Pro, per Pt PO intake this is providing an estimated 2230 kcals and 100gm Pro to meet 100+% kcal and 100+% Pro needs- adequate to meet estimated nutritional needs. Pt has bruising, wounds are healing and scabbed over. HT: 57 WT: 195 LB (88.64 kg) ABW: 160 LB (72.61 kg) BMI: 30.54 (Obese) GI: WNL, Soft, Non-tender, Round BM: 12/17 x1 I/O: 480/Not Noted Skin: Area of concern Wound: LINNEA knees scabs. Lt Msith rash with pink. LT forearm bruise with discoloration. Oleksandr: 23 Diet Order: Regular Estimated Energy Needs: ( Geriatric, ABW) 5665-3300 kcals (25-30 kcals/ kg) 73-87g Pro (1.0-1.2 g/kg) 3482-6722 ml (25-30 ml/kg) Current Diet Order/ Nutrition Support Regular Pertinent Medications MOM (PRN), Protonix, Flomax Pertinent Labs No labs to report Nutritional Hx/Data Height 1.7 m Height (Calculated Centimeters) 170.2 Current Weight (lbs) 88.451 kg Weight (Calculated Kilograms) 88.5 Weight (Calculated Grams) 22248.5 [place] Body Weight 148 LB (67.27 kg) % [place] Body Weight 132 Body Mass Index (BMI) 30.5 Weight Status Obese GI Symptoms Last BM 12/17 x1 Skin Integrity/Comment: Wound: LINNEA knees scabs. Lt Smith rash with pink. LT forearm bruise with discoloration. Oleksandr: 23 Current %PO Good (75-100%) Estimated Nutritional Goals BEE in Kcals: Adj wt of IBW Calories/Kcals/Kg 25-30 Kcals Calculated 6638-0167 Protein: Adj wt of IBW Protein g/k.0-1.2 Protein Calculated 73-87 Fluid: ml 7499-7083 ml (25-30 ml/kg) Nutritional Problem 1. Problem Problem No nutrition diagnosis at this time. Etiology N/A Signs/Symptoms: N/A Malnutrition Related to Morbid Obesity Malnutrition related to morbid obesity No Intervention/Recommendation Comments Continue with Regular diet as ordered. Expected Outcomes/Goals Expected Outcomes/Goals 1. PO intake to continue to meet >75% of nutritional needs . 2. Monitor PO intake, wt, nutrition related labs, and skin integrity to trend WNL. 3. F/U as low risk in 7-10 days, 12/26-12/29
--- NOTE | 2018-12-31 20:23 | Progress Notes ---
DATE: 12/31/2018 SUBJECTIVE: Case was discussed with staff of the patient, reviewed records. The patient is walking aimlessly on the unit, unable to participate in meaningful conversation, unable to make safe plan for self-care, unpredictable, impulsive, needing redirection. Continues to be unable to make safe plan for self-care. We are working on placement for this patient, has no placement, so we can release and then may work until we have a placement that is safe for him, because he is unable to make safe plan for self-care or take care of himself. He does not have any family that will take care of him. I will continue outpatient group therapy, milieu therapy, and adjust medications as needed. [facility]# [id number]
[2019-01-01] MEDS: Rivastigmine 4.6 mg/24 hr Tdm TD SCH (09:09)
[2019-01-01] MEDS: Pantoprazole 40 mg EC Tab PO SCH (09:09)
--- NOTE | 2019-01-01 12:18 | Internal Medicine Prog Note ---
Internal Medicine Subjective - Subjective Patient seen and examined:: with staff, chart reviewed Patient is:: awake, non-verbal, non-interactive, in bed Per staff patient has:: no adverse event, no episodes of fall, poor oral intake , tolerating meds Internal Medicine Objective - Physical Exam Vitals and I&O: Vital Signs Temp 97.1 F 01/01/19 06:02 Pulse 69 01/01/19 06:02 Resp 18 01/01/19 10:08 BP 98/58 01/01/19 06:02 Pulse Ox 95 01/01/19 06:02 Intake & Output 12/31/18 01/01/19 01/01/19 18:59 06:59 18:59 Intake Total 900 360 Balance 900 360 Intake: Oral 900 360 Other: # Voids 3 2 # Bowel Movements 0 0 Active Medications: Current Medications Acetaminophen (Tylenol) 650 mg PO Q4HR PRN PRN Reason: Mild Pain / Temp above 100 Stop: 02/11/19 22:23 Calamine/Phenol (Calmoseptine) 1 appl TP QID PRN PRN Reason: Skin Irritation Stop: 02/26/19 16:40 Donepezil HCl (Aricept) 5 mg PO HS [facility] Stop: 02/26/19 20:59 Last Admin: 12/31/18 21:25 Dose: 5 mg Lorazepam (Ativan) 0.5 mg PO Q4H PRN; Protocol PRN Reason: Anxiety Stop: 02/11/19 22:23 Last Admin: 01/01/19 09:09 Dose: 0.5 mg Magnesium Hydroxide (Milk Of Magnesia) 30 ml PO HS PRN PRN Reason: Constipation Memantine (Namenda) 5 mg PO BID [facility] Stop: 02/24/19 08:59 Last Admin: 01/01/19 09:09 Dose: 5 mg Pantoprazole Sodium (Protonix) 40 mg PO DAILY [facility] Stop: 02/12/19 08:59 Last Admin: 01/01/19 09:09 Dose: 40 mg Quetiapine Fumarate (Seroquel) 12.5 mg PO BID [facility]; Protocol Stop: 02/14/19 08:59 Last Admin: 01/01/19 09:09 Dose: 12.5 mg Rivastigmine (Exelon 4.6 Mg/24 Hr Tdm) 1 patch TD DAILY [facility] Stop: 02/12/19 08:59 Last Admin: 01/01/19 09:09 Dose: 1 patch Tamsulosin HCl (Flomax) 0.4 mg PO HS [facility] Stop: 02/12/19 20:59 Last Admin: 12/31/18 21:25 Dose: 0.4 mg Zolpidem Tartrate (Ambien) 5 mg PO HS PRN PRN Reason: Insomnia Stop: 02/11/19 22:23 Last Admin: 12/31/18 21:25 Dose: 5 mg General: demented, disheveled, thin HEENT: NC/AT, PERRLA, EOMI Neck: Supple, No JVD Lungs: CTAB Cardiovascular: RRR, Normal S1, Normal S2, with murmur Abdomen: soft, non-tender, thin, positive bowel sound Extremities: excoriation, deformity Neurological: no change Internal Medicine Assmt/Plan - Assessment Assessment: ASSESSMENT AND PLAN: Parkinson's disorder, Alzheimer's dementia, BPH, gastroesophageal reflux disease. - Plan Plan: PLAN: We will place the patient on fall precaution. We will try to see what his medication for Parkinson's. Continue on Flomax. Continue on proton pump inhibitor. We will continue monitoring closely with you, Dr. Kinney. Nutritional Asmnt/Malnutr-PDOC - Dietary Evaluation Malnutrition Findings (Please click <Entered> for more info): Nutritional Asmnt/Malnutrition Start: 12/19/18 15: 45 Text: Status: Complete Freq: Protocol: Document 12/19/18 15:45 RINKU (Rec: 12/19/18 15:48 RINKU [email or web address]) Nutritional Asmnt/Malnutrition Patient General Information Nutritional Screening Low Risk Diagnosis Psychosis NOS Pertinent Medical Hx/Surgical Hx Parkinsons, Dementia (limited , no H&P) Subjective Information Pt is a 73-year-old male admitted on 12/13 d/t increased agitation, aggressive behavior, and anxiety. Pt is eating 80% of meals Per Meal/ Nutrition Activity Record. Dietary is currently providing an estimated 2790 kcals and 125 gm Pro, per Pt PO intake this is providing an estimated 2230 kcals and 100gm Pro to meet 100+% kcal and 100+% Pro needs- adequate to meet estimated nutritional needs. Pt has bruising, wounds are healing and scabbed over. HT: 57 WT: 195 LB (88.64 kg) ABW: 160 LB (72.61 kg) BMI: 30.54 (Obese) GI: WNL, Soft, Non-tender, Round BM: 12/17 x1 I/O: 480/Not Noted Skin: Area of concern Wound: LINNEA knees scabs. Lt Smith rash with pink. LT forearm bruise with discoloration. Oleksandr: 23 Diet Order: Regular Estimated Energy Needs: ( Geriatric, ABW) 9832-3199 kcals (25-30 kcals/ kg) 73-87g Pro (1.0-1.2 g/kg) 1826-3419 ml (25-30 ml/kg) Current Diet Order/ Nutrition Support Regular Pertinent Medications MOM (PRN), Protonix, Flomax Pertinent Labs No labs to report Nutritional Hx/Data Height 1.7 m Height (Calculated Centimeters) 170.2 Current Weight (lbs) 88.451 kg Weight (Calculated Kilograms) 88.5 Weight (Calculated Grams) 31077.5 [place] Body Weight 148 LB (67.27 kg) % [place] Body Weight 132 Body Mass Index (BMI) 30.5 Weight Status Obese GI Symptoms Last BM 12/17 x1 Skin Integrity/Comment: Wound: LINNEA knees scabs. Lt Smith rash with pink. LT forearm bruise with discoloration. Oleksandr: 23 Current %PO Good (75-100%) Estimated Nutritional Goals BEE in Kcals: Adj wt of IBW Calories/Kcals/Kg 25-30 Kcals Calculated 4191-0981 Protein: Adj wt of IBW Protein g/k.0-1.2 Protein Calculated 73-87 Fluid: ml 1474-8006 ml (25-30 ml/kg) Nutritional Problem 1. Problem Problem No nutrition diagnosis at this time. Etiology N/A Signs/Symptoms: N/A Malnutrition Related to Morbid Obesity Malnutrition related to morbid obesity No Intervention/Recommendation Comments Continue with Regular diet as ordered. Expected Outcomes/Goals Expected Outcomes/Goals 1. PO intake to continue to meet >75% of nutritional needs . 2. Monitor PO intake, wt, nutrition related labs, and skin integrity to trend WNL. 3. F/U as low risk in 7-10 days, 12/26-12/29
--- NOTE | 2019-01-01 14:55 | Progress Notes ---
DATE: 01/01/2019 Case was discussed with staff of the patient, reviewed records. The patient continues to have poor insight, continues to be confused, unable to care for himself, seeking help with his ADLs, easily agitated, unpredictable, impulsive, working on placement. No side effects with the medication, no sedation, no nausea, no extrapyramidal symptoms. We will continue to work with the patient in group therapy, milieu therapy, and adjust the medications as needed. JOB# [id number]
[2019-01-02] MEDS: Rivastigmine 4.6 mg/24 hr Tdm TD SCH (08:37)
[2019-01-02] MEDS: Pantoprazole 40 mg EC Tab PO SCH (08:37)
--- NOTE | 2019-01-02 12:31 | Internal Medicine Prog Note ---
Internal Medicine Subjective - Subjective Patient seen and examined:: with staff, chart reviewed Patient is:: awake, non-verbal, non-interactive, in bed Per staff patient has:: no adverse event, no episodes of fall, poor oral intake , tolerating meds Internal Medicine Objective - Physical Exam Vitals and I&O: Vital Signs Temp 97.3 F 01/02/19 06:33 Pulse 84 01/02/19 06:33 Resp 20 01/02/19 06:33 BP 104/58 01/02/19 06:33 Pulse Ox 97 01/02/19 06:33 Intake & Output 01/01/19 01/02/19 01/02/19 18:59 06:59 18:59 Intake Total 1200 120 Balance 1200 120 Intake: Oral 1200 120 Other: # Voids 4 1 # Bowel Movements 0 0 Active Medications: Current Medications Acetaminophen (Tylenol) 650 mg PO Q4HR PRN PRN Reason: Mild Pain / Temp above 100 Stop: 02/11/19 22:23 Calamine/Phenol (Calmoseptine) 1 appl TP QID PRN PRN Reason: Skin Irritation Stop: 02/26/19 16:40 Lorazepam (Ativan) 0.5 mg PO Q4H PRN; Protocol PRN Reason: Anxiety Stop: 02/11/19 22:23 Last Admin: 01/01/19 14:52 Dose: 0.5 mg Magnesium Hydroxide (Milk Of Magnesia) 30 ml PO HS PRN PRN Reason: Constipation Memantine (Namenda) 5 mg PO BID [facility] Stop: 02/24/19 08:59 Last Admin: 01/02/19 08:36 Dose: 5 mg Pantoprazole Sodium (Protonix) 40 mg PO DAILY [facility] Stop: 02/12/19 08:59 Last Admin: 01/02/19 08:37 Dose: 40 mg Quetiapine Fumarate (Seroquel) 12.5 mg PO BID [facility]; Protocol Stop: 02/14/19 08:59 Last Admin: 01/02/19 08:37 Dose: 12.5 mg Rivastigmine (Exelon 4.6 Mg/24 Hr Tdm) 1 patch TD DAILY [facility] Stop: 02/12/19 08:59 Last Admin: 01/02/19 08:37 Dose: 1 patch Tamsulosin HCl (Flomax) 0.4 mg PO HS [facility] Stop: 02/12/19 20:59 Last Admin: 01/01/19 21:17 Dose: 0.4 mg Zolpidem Tartrate (Ambien) 5 mg PO HS PRN PRN Reason: Insomnia Stop: 02/11/19 22:23 Last Admin: 01/01/19 21:46 Dose: 5 mg General: demented, disheveled, thin HEENT: NC/AT, PERRLA, EOMI Neck: Supple, No JVD Lungs: CTAB Cardiovascular: RRR, Normal S1, Normal S2, with murmur Abdomen: soft, non-tender, thin, positive bowel sound Extremities: excoriation, deformity Neurological: no change Internal Medicine Assmt/Plan - Assessment Assessment: ASSESSMENT AND PLAN: Parkinson's disorder, Alzheimer's dementia, BPH, gastroesophageal reflux disease. - Plan Plan: PLAN: We will place the patient on fall precaution. We will try to see what his medication for Parkinson's. Continue on Flomax. Continue on proton pump inhibitor. We will continue monitoring closely with you, Dr. Kinney. Nutritional Asmnt/Malnutr-PDOC - Dietary Evaluation Malnutrition Findings (Please click <Entered> for more info): Nutritional Asmnt/Malnutrition Start: 12/19/18 15: 45 Text: Status: Complete Freq: Protocol: Document 12/19/18 15:45 RINKU (Rec: 12/19/18 15:48 RINKU [id number]) Nutritional Asmnt/Malnutrition Patient General Information Nutritional Screening Low Risk Diagnosis Psychosis NOS Pertinent Medical Hx/Surgical Hx Parkinsons, Dementia (limited , no H&P) Subjective Information Pt is a 73-year-old male admitted on 12/13 d/t increased agitation, aggressive behavior, and anxiety. Pt is eating 80% of meals Per Meal/ Nutrition Activity Record. Dietary is currently providing an estimated 2790 kcals and 125 gm Pro, per Pt PO intake this is providing an estimated 2230 kcals and 100gm Pro to meet 100+% kcal and 100+% Pro needs- adequate to meet estimated nutritional needs. Pt has bruising, wounds are healing and scabbed over. HT: 57 WT: 195 LB (88.64 kg) ABW: 160 LB (72.61 kg) BMI: 30.54 (Obese) GI: WNL, Soft, Non-tender, Round BM: 12/17 x1 I/O: 480/Not Noted Skin: Area of concern Wound: LINNEA knees scabs. Lt Smith rash with pink. LT forearm bruise with discoloration. Oleksandr: 23 Diet Order: Regular Estimated Energy Needs: ( Geriatric, ABW) 4669-1981 kcals (25-30 kcals/ kg) 73-87g Pro (1.0-1.2 g/kg) 0871-2506 ml (25-30 ml/kg) Current Diet Order/ Nutrition Support Regular Pertinent Medications MOM (PRN), Protonix, Flomax Pertinent Labs No labs to report Nutritional Hx/Data Height 1.7 m Height (Calculated Centimeters) 170.2 Current Weight (lbs) 88.451 kg Weight (Calculated Kilograms) 88.5 Weight (Calculated Grams) 54130.5 [place] Body Weight 148 LB (67.27 kg) % [place] Body Weight 132 Body Mass Index (BMI) 30.5 Weight Status Obese GI Symptoms Last BM 12/17 x1 Skin Integrity/Comment: Wound: LINNEA knees scabs. Lt Smith rash with pink. LT forearm bruise with discoloration. Oleksandr: 23 Current %PO Good (75-100%) Estimated Nutritional Goals BEE in Kcals: Adj wt of IBW Calories/Kcals/Kg 25-30 Kcals Calculated 2250-2324 Protein: Adj wt of IBW Protein g/k.0-1.2 Protein Calculated 73-87 Fluid: ml 9220-5290 ml (25-30 ml/kg) Nutritional Problem 1. Problem Problem No nutrition diagnosis at this time. Etiology N/A Signs/Symptoms: N/A Malnutrition Related to Morbid Obesity Malnutrition related to morbid obesity No Intervention/Recommendation Comments Continue with Regular diet as ordered. Expected Outcomes/Goals Expected Outcomes/Goals 1. PO intake to continue to meet >75% of nutritional needs . 2. Monitor PO intake, wt, nutrition related labs, and skin integrity to trend WNL. 3. F/U as low risk in 7-10 days, 12/26-12/29
--- NOTE | 2019-01-02 15:22 | Progress Notes ---
DATE: 01/02/2019 Case was discussed with staff of the patient, reviewed records. The patient continues to be demented, confused, unable to make safe plan for self-care. The staff is trying to find a placement for him. I initiated him on Aricept a few days ago 5 mg at bedtime. He is on Namenda that I increased to 5 mg twice a day with no side effects, no sedation, no nausea, no extrapyramidal symptoms. The Aricept will be discontinued as the patient also on Exelon patch, so that was error. No side effects with the medication, no sedation, no nausea and we will continue outpatient group therapy, milieu therapy, adjust medication as needed. [facility]# [id number]
[2019-01-03] MEDS: Rivastigmine 4.6 mg/24 hr Tdm TD SCH (08:27)
[2019-01-03] MEDS: Pantoprazole 40 mg EC Tab PO SCH (08:39)
--- NOTE | 2019-01-03 12:45 | Progress Notes ---
DATE: SUBJECTIVE: Case was discussed with staff of the patient, reviewed records. The patient continues to be confused, unpredictable, impulsive, needing redirection. He continues to have poor insight. He is on Namenda 5 mg twice a day with no side effects, no sedation, no nausea. He is also on Exelon patch and Seroquel 12.5 mg twice a day, needing redirection. No side effects with the medication, no sedation, no nausea. We will continue outpatient group therapy, milieu therapy, adjust medication as needed. JOB# [id number]
--- NOTE | 2019-01-03 15:00 | Internal Medicine Prog Note ---
Internal Medicine Subjective - Subjective Patient seen and examined:: with staff, chart reviewed Patient is:: awake, non-verbal, non-interactive, in bed Per staff patient has:: no adverse event, no episodes of fall, poor oral intake , tolerating meds Internal Medicine Objective - Physical Exam Vitals and I&O: Vital Signs Temp 97.8 F 01/03/19 14:00 Pulse 64 01/03/19 14:00 Resp 18 01/03/19 14:00 BP 102/53 01/03/19 14:00 Pulse Ox 97 01/03/19 14:00 Intake & Output 01/02/19 01/03/19 01/03/19 18:59 06:59 18:59 Intake Total 860 120 Balance 860 120 Intake: Oral 740 120 Other 120 Other: # Voids 3 3 # Bowel Movements 96 Active Medications: Current Medications Acetaminophen (Tylenol) 650 mg PO Q4HR PRN PRN Reason: Mild Pain / Temp above 100 Stop: 02/11/19 22:23 Calamine/Phenol (Calmoseptine) 1 appl TP QID PRN PRN Reason: Skin Irritation Stop: 02/26/19 16:40 Lorazepam (Ativan) 0.5 mg PO Q4H PRN; Protocol PRN Reason: Anxiety Stop: 02/11/19 22:23 Last Admin: 01/01/19 14:52 Dose: 0.5 mg Magnesium Hydroxide (Milk Of Magnesia) 30 ml PO HS PRN PRN Reason: Constipation Memantine (Namenda) 5 mg PO BID [facility] Stop: 02/24/19 08:59 Last Admin: 01/03/19 08:39 Dose: Not Given Pantoprazole Sodium (Protonix) 40 mg PO DAILY [facility] Stop: 02/12/19 08:59 Last Admin: 01/03/19 08:39 Dose: 40 mg Quetiapine Fumarate (Seroquel) 12.5 mg PO BID [facility]; Protocol Stop: 02/14/19 08:59 Last Admin: 01/03/19 08:39 Dose: Not Given Rivastigmine (Exelon 4.6 Mg/24 Hr Tdm) 1 patch TD DAILY [facility] Stop: 02/12/19 08:59 Last Admin: 01/03/19 08:27 Dose: 1 patch Tamsulosin HCl (Flomax) 0.4 mg PO HS [facility] Stop: 02/12/19 20:59 Last Admin: 01/02/19 21:21 Dose: Not Given Zolpidem Tartrate (Ambien) 5 mg PO HS PRN PRN Reason: Insomnia Stop: 02/11/19 22:23 Last Admin: 01/01/19 21:46 Dose: 5 mg General: demented, disheveled, thin HEENT: NC/AT, PERRLA, EOMI Neck: Supple, No JVD Lungs: CTAB Cardiovascular: RRR, Normal S1, Normal S2, with murmur Abdomen: soft, non-tender, thin, positive bowel sound Extremities: excoriation, deformity Neurological: no change Internal Medicine Assmt/Plan - Assessment Assessment: ASSESSMENT AND PLAN: Parkinson's disorder, Alzheimer's dementia, BPH, gastroesophageal reflux disease. - Plan Plan: PLAN: We will place the patient on fall precaution. We will try to see what his medication for Parkinson's. Continue on Flomax. Continue on proton pump inhibitor. We will continue monitoring closely with you, Dr. Kinney. Nutritional Asmnt/Malnutr-PDOC - Dietary Evaluation Malnutrition Findings (Please click <Entered> for more info): Nutritional Asmnt/Malnutrition Start: 12/19/18 15: 45 Text: Status: Complete Freq: Protocol: Document 12/19/18 15:45 RINKU (Rec: 12/19/18 15:48 RINKU [id number]) Nutritional Asmnt/Malnutrition Patient General Information Nutritional Screening Low Risk Diagnosis Psychosis NOS Pertinent Medical Hx/Surgical Hx Parkinsons, Dementia (limited , no H&P) Subjective Information Pt is a 73-year-old male admitted on 12/13 d/t increased agitation, aggressive behavior, and anxiety. Pt is eating 80% of meals Per Meal/ Nutrition Activity Record. Dietary is currently providing an estimated 2790 kcals and 125 gm Pro, per Pt PO intake this is providing an estimated 2230 kcals and 100gm Pro to meet 100+% kcal and 100+% Pro needs- adequate to meet estimated nutritional needs. Pt has bruising, wounds are healing and scabbed over. HT: 57 WT: 195 LB (88.64 kg) ABW: 160 LB (72.61 kg) BMI: 30.54 (Obese) GI: WNL, Soft, Non-tender, Round BM: 12/17 x1 I/O: 480/Not Noted Skin: Area of concern Wound: LINNEA knees scabs. Lt Smith rash with pink. LT forearm bruise with discoloration. Oleksandr: 23 Diet Order: Regular Estimated Energy Needs: ( Geriatric, ABW) 1263-7022 kcals (25-30 kcals/ kg) 73-87g Pro (1.0-1.2 g/kg) 4036-1260 ml (25-30 ml/kg) Current Diet Order/ Nutrition Support Regular Pertinent Medications MOM (PRN), Protonix, Flomax Pertinent Labs No labs to report Nutritional Hx/Data Height 1.7 m Height (Calculated Centimeters) 170.2 Current Weight (lbs) 88.451 kg Weight (Calculated Kilograms) 88.5 Weight (Calculated Grams) 08869.5 [place] Body Weight 148 LB (67.27 kg) % [place] Body Weight 132 Body Mass Index (BMI) 30.5 Weight Status Obese GI Symptoms Last BM 12/17 x1 Skin Integrity/Comment: Wound: LINNEA knees scabs. Lt Smith rash with pink. LT forearm bruise with discoloration. Oleksandr: 23 Current %PO Good (75-100%) Estimated Nutritional Goals BEE in Kcals: Adj wt of IBW Calories/Kcals/Kg 25-30 Kcals Calculated 0726-1682 Protein: Adj wt of IBW Protein g/k.0-1.2 Protein Calculated 73-87 Fluid: ml 0790-5220 ml (25-30 ml/kg) Nutritional Problem 1. Problem Problem No nutrition diagnosis at this time. Etiology N/A Signs/Symptoms: N/A Malnutrition Related to Morbid Obesity Malnutrition related to morbid obesity No Intervention/Recommendation Comments Continue with Regular diet as ordered. Expected Outcomes/Goals Expected Outcomes/Goals 1. PO intake to continue to meet >75% of nutritional needs . 2. Monitor PO intake, wt, nutrition related labs, and skin integrity to trend WNL. 3. F/U as low risk in 7-10 days, 12/26-12/29
[2019-01-04] MEDS: Rivastigmine 4.6 mg/24 hr Tdm TD SCH (08:41)
[2019-01-04] MEDS: Pantoprazole 40 mg EC Tab PO SCH ×2 (08:41→13:52)
--- NOTE | 2019-01-04 12:45 | Internal Medicine Prog Note ---
Internal Medicine Subjective - Subjective Patient seen and examined:: with staff, chart reviewed Patient is:: awake, non-verbal, non-interactive, in bed Per staff patient has:: no adverse event, no episodes of fall, poor oral intake , tolerating meds Internal Medicine Objective - Physical Exam Vitals and I&O: Vital Signs Temp 97.4 F 01/04/19 05:42 Pulse 60 01/04/19 05:42 Resp 20 01/04/19 05:42 BP 112/65 01/03/19 20:00 Pulse Ox 96 01/04/19 05:42 Intake & Output 01/03/19 01/04/19 01/04/19 18:59 06:59 18:59 Intake Total 1200 800 Balance 1200 800 Intake: Oral 1200 800 Other: # Voids 1 # Bowel Movements 1 Active Medications: Current Medications Acetaminophen (Tylenol) 650 mg PO Q4HR PRN PRN Reason: Mild Pain (Scale 1-3) Stop: 02/11/19 22:23 Acetaminophen (Tylenol) 650 mg PO Q4H PRN PRN Reason: TEMP ABOVE 100 Stop: 03/05/19 09:46 Calamine/Phenol (Calmoseptine) 1 appl TP QID PRN PRN Reason: Skin Irritation Stop: 02/26/19 16:40 Lorazepam (Ativan) 0.5 mg PO Q4H PRN; Protocol PRN Reason: Anxiety Stop: 02/11/19 22:23 Last Admin: 01/01/19 14:52 Dose: 0.5 mg Magnesium Hydroxide (Milk Of Magnesia) 30 ml PO HS PRN PRN Reason: Constipation Memantine (Namenda) 5 mg PO BID [facility] Stop: 02/24/19 08:59 Last Admin: 01/04/19 08:41 Dose: Not Given Pantoprazole Sodium (Protonix) 40 mg PO DAILY [facility] Stop: 02/12/19 08:59 Last Admin: 01/04/19 08:41 Dose: Not Given Quetiapine Fumarate (Seroquel) 12.5 mg PO BID [facility]; Protocol Stop: 02/14/19 08:59 Last Admin: 01/04/19 08:41 Dose: Not Given Rivastigmine (Exelon 4.6 Mg/24 Hr Tdm) 1 patch TD DAILY [facility] Stop: 02/12/19 08:59 Last Admin: 01/04/19 08:41 Dose: Not Given Tamsulosin HCl (Flomax) 0.4 mg PO HS [facility] Stop: 02/12/19 20:59 Last Admin: 01/03/19 21:43 Dose: Not Given Zolpidem Tartrate (Ambien) 5 mg PO HS PRN PRN Reason: Insomnia Stop: 02/11/19 22:23 Last Admin: 01/01/19 21:46 Dose: 5 mg General: demented, disheveled, thin HEENT: NC/AT, PERRLA, EOMI Neck: Supple, No JVD Lungs: CTAB Cardiovascular: RRR, Normal S1, Normal S2, with murmur Abdomen: soft, non-tender, thin, positive bowel sound Extremities: excoriation, deformity Neurological: no change Internal Medicine Assmt/Plan - Assessment Assessment: ASSESSMENT AND PLAN: Parkinson's disorder, Alzheimer's dementia, BPH, gastroesophageal reflux disease. - Plan Plan: PLAN: We will place the patient on fall precaution. We will try to see what his medication for Parkinson's. Continue on Flomax. Continue on proton pump inhibitor. We will continue monitoring closely with you, Dr. Kinney. Nutritional Asmnt/Malnutr-PDOC - Dietary Evaluation Malnutrition Findings (Please click <Entered> for more info): Nutritional Asmnt/Malnutrition Start: 12/19/18 15: 45 Text: Status: Complete Freq: Protocol: Document 12/19/18 15:45 RINKU (Rec: 12/19/18 15:48 RINKU [id number]) Nutritional Asmnt/Malnutrition Patient General Information Nutritional Screening Low Risk Diagnosis Psychosis NOS Pertinent Medical Hx/Surgical Hx Parkinsons, Dementia (limited , no H&P) Subjective Information Pt is a 73-year-old male admitted on 12/13 d/t increased agitation, aggressive behavior, and anxiety. Pt is eating 80% of meals Per Meal/ Nutrition Activity Record. Dietary is currently providing an estimated 2790 kcals and 125 gm Pro, per Pt PO intake this is providing an estimated 2230 kcals and 100gm Pro to meet 100+% kcal and 100+% Pro needs- adequate to meet estimated nutritional needs. Pt has bruising, wounds are healing and scabbed over. HT: 57 WT: 195 LB (88.64 kg) ABW: 160 LB (72.61 kg) BMI: 30.54 (Obese) GI: WNL, Soft, Non-tender, Round BM: 12/17 x1 I/O: 480/Not Noted Skin: Area of concern Wound: LINNEA knees scabs. Lt Smith rash with pink. LT forearm bruise with discoloration. Oleksandr: 23 Diet Order: Regular Estimated Energy Needs: ( Geriatric, ABW) 0347-3701 kcals (25-30 kcals/ kg) 73-87g Pro (1.0-1.2 g/kg) 4528-7107 ml (25-30 ml/kg) Current Diet Order/ Nutrition Support Regular Pertinent Medications MOM (PRN), Protonix, Flomax Pertinent Labs No labs to report Nutritional Hx/Data Height 1.7 m Height (Calculated Centimeters) 170.2 Current Weight (lbs) 88.451 kg Weight (Calculated Kilograms) 88.5 Weight (Calculated Grams) 46785.5 [place] Body Weight 148 LB (67.27 kg) % [place] Body Weight 132 Body Mass Index (BMI) 30.5 Weight Status Obese GI Symptoms Last BM 12/17 x1 Skin Integrity/Comment: Wound: LINNEA knees scabs. Lt Smith rash with pink. LT forearm bruise with discoloration. Oleksandr: 23 Current %PO Good (75-100%) Estimated Nutritional Goals BEE in Kcals: Adj wt of IBW Calories/Kcals/Kg 25-30 Kcals Calculated 8705-1846 Protein: Adj wt of IBW Protein g/k.0-1.2 Protein Calculated 73-87 Fluid: ml 2914-5395 ml (25-30 ml/kg) Nutritional Problem 1. Problem Problem No nutrition diagnosis at this time. Etiology N/A Signs/Symptoms: N/A Malnutrition Related to Morbid Obesity Malnutrition related to morbid obesity No Intervention/Recommendation Comments Continue with Regular diet as ordered. Expected Outcomes/Goals Expected Outcomes/Goals 1. PO intake to continue to meet >75% of nutritional needs . 2. Monitor PO intake, wt, nutrition related labs, and skin integrity to trend WNL. 3. F/U as low risk in 7-10 days, 12/26-12/29
--- NOTE | 2019-01-05 02:36 | Progress Notes ---
DATE: 01/04/2019 Case was discussed with staff of the patient, reviewed records. The patient withholding medications. He took a very high dose of Seroquel yesterday ____. He continues to be confused, unable to make safe plan for self-care. We ____ trying to get him placed. No side effects. He continues to be unable to care for himself. We are still waiting on placement for this patient. We will continue to work with the patient in group therapy, milieu therapy, and adjust the medication as needed. JOB# [id number]
[2019-01-05] MEDS: Pantoprazole 40 mg EC Tab PO SCH (08:50)
[2019-01-05] MEDS: Rivastigmine 4.6 mg/24 hr Tdm TD SCH (08:56)
--- NOTE | 2019-01-05 10:19 | Internal Medicine Prog Note ---
Internal Medicine Subjective - Subjective Patient seen and examined:: with staff, chart reviewed Patient is:: awake, non-verbal, non-interactive, in bed Per staff patient has:: no adverse event, no episodes of fall, poor oral intake , tolerating meds Internal Medicine Objective - Physical Exam Vitals and I&O: Vital Signs Temp 97.8 F 01/05/19 05:47 Pulse 66 01/05/19 05:47 Resp 20 01/05/19 05:47 BP 101/52 01/05/19 05:47 Pulse Ox 95 01/05/19 05:47 Intake & Output 01/04/19 01/05/19 01/05/19 18:59 06:59 18:59 Intake Total 1200 240 Balance 1200 240 Intake: Oral 1200 240 Other: # Voids 2 # Bowel Movements 1 0 Active Medications: Current Medications Acetaminophen (Tylenol) 650 mg PO Q4HR PRN PRN Reason: Mild Pain (Scale 1-3) Stop: 02/11/19 22:23 Acetaminophen (Tylenol) 650 mg PO Q4H PRN PRN Reason: TEMP ABOVE 100 Stop: 03/05/19 09:46 Calamine/Phenol (Calmoseptine) 1 appl TP QID PRN PRN Reason: Skin Irritation Stop: 02/26/19 16:40 Lorazepam (Ativan) 0.5 mg PO Q4H PRN; Protocol PRN Reason: Anxiety Stop: 02/11/19 22:23 Last Admin: 01/01/19 14:52 Dose: 0.5 mg Magnesium Hydroxide (Milk Of Magnesia) 30 ml PO HS PRN PRN Reason: Constipation Memantine (Namenda) 5 mg PO BID [facility] Stop: 02/24/19 08:59 Last Admin: 01/05/19 08:50 Dose: 5 mg Pantoprazole Sodium (Protonix) 40 mg PO DAILY [facility] Stop: 02/12/19 08:59 Last Admin: 01/05/19 08:50 Dose: 40 mg Quetiapine Fumarate (Seroquel) 12.5 mg PO BID [facility]; Protocol Stop: 02/14/19 08:59 Last Admin: 01/05/19 08:49 Dose: 12.5 mg Rivastigmine (Exelon 4.6 Mg/24 Hr Tdm) 1 patch TD DAILY [facility] Stop: 02/12/19 08:59 Last Admin: 01/05/19 08:56 Dose: 1 patch Tamsulosin HCl (Flomax) 0.4 mg PO HS [facility] Stop: 02/12/19 20:59 Last Admin: 01/03/19 21:43 Dose: Not Given Zolpidem Tartrate (Ambien) 5 mg PO HS PRN PRN Reason: Insomnia Stop: 02/11/19 22:23 Last Admin: 01/01/19 21:46 Dose: 5 mg General: demented, disheveled, thin HEENT: NC/AT, PERRLA, EOMI Neck: Supple, No JVD Lungs: CTAB Cardiovascular: RRR, Normal S1, Normal S2, with murmur Abdomen: soft, non-tender, thin, positive bowel sound Extremities: excoriation, deformity Neurological: no change Internal Medicine Assmt/Plan - Assessment Assessment: ASSESSMENT AND PLAN: Parkinson's disorder, Alzheimer's dementia, BPH, gastroesophageal reflux disease. - Plan Plan: PLAN: We will place the patient on fall precaution. We will try to see what his medication for Parkinson's. Continue on Flomax. Continue on proton pump inhibitor. We will continue monitoring closely with you, Dr. Kinney. Nutritional Asmnt/Malnutr-PDOC - Dietary Evaluation Malnutrition Findings (Please click <Entered> for more info): Nutritional Asmnt/Malnutrition Start: 12/19/18 15: 45 Text: Status: Complete Freq: Protocol: Document 12/19/18 15:45 RINKU (Rec: 12/19/18 15:48 RINKU [email or web address]) Nutritional Asmnt/Malnutrition Patient General Information Nutritional Screening Low Risk Diagnosis Psychosis NOS Pertinent Medical Hx/Surgical Hx Parkinsons, Dementia (limited , no H&P) Subjective Information Pt is a 73-year-old male admitted on 12/13 d/t increased agitation, aggressive behavior, and anxiety. Pt is eating 80% of meals Per Meal/ Nutrition Activity Record. Dietary is currently providing an estimated 2790 kcals and 125 gm Pro, per Pt PO intake this is providing an estimated 2230 kcals and 100gm Pro to meet 100+% kcal and 100+% Pro needs- adequate to meet estimated nutritional needs. Pt has bruising, wounds are healing and scabbed over. HT: 57 WT: 195 LB (88.64 kg) ABW: 160 LB (72.61 kg) BMI: 30.54 (Obese) GI: WNL, Soft, Non-tender, Round BM: 12/17 x1 I/O: 480/Not Noted Skin: Area of concern Wound: LINNEA knees scabs. Lt Smith rash with pink. LT forearm bruise with discoloration. Oleksandr: 23 Diet Order: Regular Estimated Energy Needs: ( Geriatric, ABW) 8430-3026 kcals (25-30 kcals/ kg) 73-87g Pro (1.0-1.2 g/kg) 9515-4693 ml (25-30 ml/kg) Current Diet Order/ Nutrition Support Regular Pertinent Medications MOM (PRN), Protonix, Flomax Pertinent Labs No labs to report Nutritional Hx/Data Height 1.7 m Height (Calculated Centimeters) 170.2 Current Weight (lbs) 88.451 kg Weight (Calculated Kilograms) 88.5 Weight (Calculated Grams) 71742.5 [place] Body Weight 148 LB (67.27 kg) % [place] Body Weight 132 Body Mass Index (BMI) 30.5 Weight Status Obese GI Symptoms Last BM 12/17 x1 Skin Integrity/Comment: Wound: LINNEA knees scabs. Lt Smith rash with pink. LT forearm bruise with discoloration. Oleksandr: 23 Current %PO Good (75-100%) Estimated Nutritional Goals BEE in Kcals: Adj wt of IBW Calories/Kcals/Kg 25-30 Kcals Calculated 2307-5019 Protein: Adj wt of IBW Protein g/k.0-1.2 Protein Calculated 73-87 Fluid: ml 9443-9603 ml (25-30 ml/kg) Nutritional Problem 1. Problem Problem No nutrition diagnosis at this time. Etiology N/A Signs/Symptoms: N/A Malnutrition Related to Morbid Obesity Malnutrition related to morbid obesity No Intervention/Recommendation Comments Continue with Regular diet as ordered. Expected Outcomes/Goals Expected Outcomes/Goals 1. PO intake to continue to meet >75% of nutritional needs . 2. Monitor PO intake, wt, nutrition related labs, and skin integrity to trend WNL. 3. F/U as low risk in 7-10 days, 12/26-12/29
--- NOTE | 2019-01-05 19:32 | Progress Notes ---
DATE: 01/05/[address] Kinney. Chart reviewed and the patient interviewed. Also discussed the patient's condition with the staff and reviewed records and labs. The patient is still confused. The patient also is rambling and still has difficulty following directions. The patient also is still impulsive and easily agitated. Seroquel was upheld for unknown reason, but since then, the patient became more agitated and more irritable. ASSESSMENT: The patient is still irritable and agitated. TREATMENT PLAN: We will restart Seroquel in a dose of 12.5 mg every day and we will continue to monitor behavior and condition closely. JOB# [id number]
[2019-01-06] MEDS: Rivastigmine 4.6 mg/24 hr Tdm TD SCH (08:41)
[2019-01-06] MEDS: Pantoprazole 40 mg EC Tab PO SCH (08:45)
--- NOTE | 2019-01-06 15:09 | Internal Medicine Prog Note ---
Internal Medicine Subjective - Subjective Patient seen and examined:: with staff, chart reviewed Patient is:: awake, non-verbal, non-interactive, in bed Per staff patient has:: no adverse event, no episodes of fall, poor oral intake , tolerating meds Internal Medicine Objective - Physical Exam Vitals and I&O: Vital Signs Temp 97.8 F 01/06/19 13:42 Pulse 99 01/06/19 13:42 Resp 18 01/06/19 13:42 BP 121/62 01/06/19 13:42 Pulse Ox 94 01/06/19 13:42 Intake & Output 01/05/19 01/06/19 01/06/19 18:59 06:59 18:59 Intake Total 120 Balance 120 Intake: Oral 120 Other: # Voids 3 1 # Bowel Movements 1 1 Active Medications: Current Medications Acetaminophen (Tylenol) 650 mg PO Q4HR PRN PRN Reason: Mild Pain (Scale 1-3) Stop: 02/11/19 22:23 Acetaminophen (Tylenol) 650 mg PO Q4H PRN PRN Reason: TEMP ABOVE 100 Stop: 03/05/19 09:46 Calamine/Phenol (Calmoseptine) 1 appl TP QID PRN PRN Reason: Skin Irritation Stop: 02/26/19 16:40 Lorazepam (Ativan) 0.5 mg PO Q4H PRN; Protocol PRN Reason: Anxiety Stop: 02/11/19 22:23 Last Admin: 01/01/19 14:52 Dose: 0.5 mg Magnesium Hydroxide (Milk Of Magnesia) 30 ml PO HS PRN PRN Reason: Constipation Memantine (Namenda) 5 mg PO BID [facility] Stop: 02/24/19 08:59 Last Admin: 01/06/19 08:45 Dose: 5 mg Pantoprazole Sodium (Protonix) 40 mg PO DAILY [facility] Stop: 02/12/19 08:59 Last Admin: 01/06/19 08:45 Dose: 40 mg Quetiapine Fumarate (Seroquel) 12.5 mg PO BID [facility]; Protocol Stop: 02/14/19 08:59 Last Admin: 01/06/19 08:45 Dose: 12.5 mg Rivastigmine (Exelon 4.6 Mg/24 Hr Tdm) 1 patch TD DAILY [facility] Stop: 02/12/19 08:59 Last Admin: 01/06/19 08:41 Dose: 1 patch Tamsulosin HCl (Flomax) 0.4 mg PO HS [facility] Stop: 02/12/19 20:59 Last Admin: 01/05/19 21:04 Dose: 0.4 mg Zolpidem Tartrate (Ambien) 5 mg PO HS PRN PRN Reason: Insomnia Stop: 02/11/19 22:23 Last Admin: 01/05/19 21:05 Dose: 5 mg General: demented, disheveled, thin HEENT: NC/AT, PERRLA, EOMI Neck: Supple, No JVD Lungs: CTAB Cardiovascular: RRR, Normal S1, Normal S2, with murmur Abdomen: soft, non-tender, thin, positive bowel sound Extremities: excoriation, deformity Neurological: no change Internal Medicine Assmt/Plan - Assessment Assessment: ASSESSMENT AND PLAN: Parkinson's disorder, Alzheimer's dementia, BPH, gastroesophageal reflux disease. - Plan Plan: PLAN: We will place the patient on fall precaution. We will try to see what his medication for Parkinson's. Continue on Flomax. Continue on proton pump inhibitor. We will continue monitoring closely with you, Dr. Kinney. Nutritional Asmnt/Malnutr-PDOC - Dietary Evaluation Malnutrition Findings (Please click <Entered> for more info): Nutritional Asmnt/Malnutrition Start: 12/19/18 15: 45 Text: Status: Complete Freq: Protocol: Document 12/19/18 15:45 RINKU (Rec: 12/19/18 15:48 RINKU [email or web address]) Nutritional Asmnt/Malnutrition Patient General Information Nutritional Screening Low Risk Diagnosis Psychosis NOS Pertinent Medical Hx/Surgical Hx Parkinsons, Dementia (limited , no H&P) Subjective Information Pt is a 73-year-old male admitted on 12/13 d/t increased agitation, aggressive behavior, and anxiety. Pt is eating 80% of meals Per Meal/ Nutrition Activity Record. Dietary is currently providing an estimated 2790 kcals and 125 gm Pro, per Pt PO intake this is providing an estimated 2230 kcals and 100gm Pro to meet 100+% kcal and 100+% Pro needs- adequate to meet estimated nutritional needs. Pt has bruising, wounds are healing and scabbed over. HT: 57 WT: 195 LB (88.64 kg) ABW: 160 LB (72.61 kg) BMI: 30.54 (Obese) GI: WNL, Soft, Non-tender, Round BM: 12/17 x1 I/O: 480/Not Noted Skin: Area of concern Wound: LINNEA knees scabs. Lt Smith rash with pink. LT forearm bruise with discoloration. Oleksandr: 23 Diet Order: Regular Estimated Energy Needs: ( Geriatric, ABW) 3133-7114 kcals (25-30 kcals/ kg) 73-87g Pro (1.0-1.2 g/kg) 7710-9974 ml (25-30 ml/kg) Current Diet Order/ Nutrition Support Regular Pertinent Medications MOM (PRN), Protonix, Flomax Pertinent Labs No labs to report Nutritional Hx/Data Height 1.7 m Height (Calculated Centimeters) 170.2 Current Weight (lbs) 88.451 kg Weight (Calculated Kilograms) 88.5 Weight (Calculated Grams) 33091.5 [place] Body Weight 148 LB (67.27 kg) % [place] Body Weight 132 Body Mass Index (BMI) 30.5 Weight Status Obese GI Symptoms Last BM 12/17 x1 Skin Integrity/Comment: Wound: LINNEA knees scabs. Lt Smith rash with pink. LT forearm bruise with discoloration. Oleksandr: 23 Current %PO Good (75-100%) Estimated Nutritional Goals BEE in Kcals: Adj wt of IBW Calories/Kcals/Kg 25-30 Kcals Calculated 5943-8555 Protein: Adj wt of IBW Protein g/k.0-1.2 Protein Calculated 73-87 Fluid: ml 6462-8244 ml (25-30 ml/kg) Nutritional Problem 1. Problem Problem No nutrition diagnosis at this time. Etiology N/A Signs/Symptoms: N/A Malnutrition Related to Morbid Obesity Malnutrition related to morbid obesity No Intervention/Recommendation Comments Continue with Regular diet as ordered. Expected Outcomes/Goals Expected Outcomes/Goals 1. PO intake to continue to meet >75% of nutritional needs . 2. Monitor PO intake, wt, nutrition related labs, and skin integrity to trend WNL. 3. F/U as low risk in 7-10 days, 12/26-12/29
--- NOTE | 2019-01-06 20:27 | Progress Notes ---
DATE: 01/06/2019 SUBJECTIVE: Chart reviewed and the patient interviewed. Also discussed the patient's condition with the staff and reviewed records and labs. The patient continued to be confused and is still wandering and pacing around the unit in a confused state and needs lots of redirections. The patient is still rambling and is still impulsive. Also, has difficulty following staff directions. The patient also still seems to be preoccupied and actively responding. Otherwise, the patient is compliant with medications and seems to be slightly calmer since restarted Seroquel yesterday. ASSESSMENT: The patient is still agitated and is still psychotic. TREATMENT PLAN: Continue Seroquel 12.5 mg twice a day and Namenda 5 mg twice a day and continue to work on his irritability and mood agitation and continue to follow up closely. JOB# [id number]
[2019-01-07] MEDS: Rivastigmine 4.6 mg/24 hr Tdm TD SCH (08:39)
[2019-01-07] MEDS: Pantoprazole 40 mg EC Tab PO SCH (08:40)
--- NOTE | 2019-01-07 12:43 | Internal Medicine Prog Note ---
Internal Medicine Subjective - Subjective Patient seen and examined:: with staff, chart reviewed Patient is:: awake, non-verbal, non-interactive, in bed Per staff patient has:: no adverse event, no episodes of fall, poor oral intake , tolerating meds Internal Medicine Objective - Physical Exam Vitals and I&O: Vital Signs Temp 97.6 F 01/06/19 20:00 Pulse 74 01/06/19 20:00 Resp 19 01/06/19 20:00 BP 118/63 01/06/19 20:00 Pulse Ox 97 01/06/19 20:00 Intake & Output 01/06/19 01/07/19 01/07/19 18:59 06:59 18:59 Intake Total 120 Balance 120 Intake: Oral 120 Other: # Voids 3 Active Medications: Current Medications Acetaminophen (Tylenol) 650 mg PO Q4HR PRN PRN Reason: Mild Pain (Scale 1-3) Stop: 02/11/19 22:23 Acetaminophen (Tylenol) 650 mg PO Q4H PRN PRN Reason: TEMP ABOVE 100 Stop: 03/05/19 09:46 Calamine/Phenol (Calmoseptine) 1 appl TP QID PRN PRN Reason: Skin Irritation Stop: 02/26/19 16:40 Lorazepam (Ativan) 0.5 mg PO Q4H PRN; Protocol PRN Reason: Anxiety Stop: 02/11/19 22:23 Last Admin: 01/01/19 14:52 Dose: 0.5 mg Magnesium Hydroxide (Milk Of Magnesia) 30 ml PO HS PRN PRN Reason: Constipation Memantine (Namenda) 5 mg PO BID [facility] Stop: 02/24/19 08:59 Last Admin: 01/07/19 08:41 Dose: 5 mg Pantoprazole Sodium (Protonix) 40 mg PO DAILY [facility] Stop: 02/12/19 08:59 Last Admin: 01/07/19 08:40 Dose: 40 mg Quetiapine Fumarate (Seroquel) 12.5 mg PO BID [facility]; Protocol Stop: 02/14/19 08:59 Last Admin: 01/07/19 08:41 Dose: 12.5 mg Rivastigmine (Exelon 4.6 Mg/24 Hr Tdm) 1 patch TD DAILY [facility] Stop: 02/12/19 08:59 Last Admin: 01/07/19 08:39 Dose: 1 patch Tamsulosin HCl (Flomax) 0.4 mg PO HS [facility] Stop: 02/12/19 20:59 Last Admin: 01/06/19 21:17 Dose: 0.4 mg Zolpidem Tartrate (Ambien) 5 mg PO HS PRN PRN Reason: Insomnia Stop: 02/11/19 22:23 Last Admin: 01/06/19 21:17 Dose: 5 mg General: demented, disheveled, thin HEENT: NC/AT, PERRLA, EOMI Neck: Supple, No JVD Lungs: CTAB Cardiovascular: RRR, Normal S1, Normal S2, with murmur Abdomen: soft, non-tender, thin, positive bowel sound Extremities: excoriation, deformity Neurological: no change Internal Medicine Assmt/Plan - Assessment Assessment: ASSESSMENT AND PLAN: Parkinson's disorder, Alzheimer's dementia, BPH, gastroesophageal reflux disease. - Plan Plan: PLAN: We will place the patient on fall precaution. We will try to see what his medication for Parkinson's. Continue on Flomax. Continue on proton pump inhibitor. We will continue monitoring closely with you, Dr. Kinney. Nutritional Asmnt/Malnutr-PDOC - Dietary Evaluation Malnutrition Findings (Please click <Entered> for more info): Nutritional Asmnt/Malnutrition Start: 12/19/18 15: 45 Text: Status: Complete Freq: Protocol: Document 12/19/18 15:45 RINKU (Rec: 12/19/18 15:48 RINKU [email or web address]) Nutritional Asmnt/Malnutrition Patient General Information Nutritional Screening Low Risk Diagnosis Psychosis NOS Pertinent Medical Hx/Surgical Hx Parkinsons, Dementia (limited , no H&P) Subjective Information Pt is a 73-year-old male admitted on 12/13 d/t increased agitation, aggressive behavior, and anxiety. Pt is eating 80% of meals Per Meal/ Nutrition Activity Record. Dietary is currently providing an estimated 2790 kcals and 125 gm Pro, per Pt PO intake this is providing an estimated 2230 kcals and 100gm Pro to meet 100+% kcal and 100+% Pro needs- adequate to meet estimated nutritional needs. Pt has bruising, wounds are healing and scabbed over. HT: 57 WT: 195 LB (88.64 kg) ABW: 160 LB (72.61 kg) BMI: 30.54 (Obese) GI: WNL, Soft, Non-tender, Round BM: 12/17 x1 I/O: 480/Not Noted Skin: Area of concern Wound: LINNEA knees scabs. Lt Smith rash with pink. LT forearm bruise with discoloration. Oleksandr: 23 Diet Order: Regular Estimated Energy Needs: ( Geriatric, ABW) 9784-7124 kcals (25-30 kcals/ kg) 73-87g Pro (1.0-1.2 g/kg) 7308-5922 ml (25-30 ml/kg) Current Diet Order/ Nutrition Support Regular Pertinent Medications MOM (PRN), Protonix, Flomax Pertinent Labs No labs to report Nutritional Hx/Data Height 1.7 m Height (Calculated Centimeters) 170.2 Current Weight (lbs) 88.451 kg Weight (Calculated Kilograms) 88.5 Weight (Calculated Grams) 80430.5 [place] Body Weight 148 LB (67.27 kg) % [place] Body Weight 132 Body Mass Index (BMI) 30.5 Weight Status Obese GI Symptoms Last BM 12/17 x1 Skin Integrity/Comment: Wound: LINNEA knees scabs. Lt Smith rash with pink. LT forearm bruise with discoloration. Oleksandr: 23 Current %PO Good (75-100%) Estimated Nutritional Goals BEE in Kcals: Adj wt of IBW Calories/Kcals/Kg 25-30 Kcals Calculated 4047-6785 Protein: Adj wt of IBW Protein g/k.0-1.2 Protein Calculated 73-87 Fluid: ml 5824-8050 ml (25-30 ml/kg) Nutritional Problem 1. Problem Problem No nutrition diagnosis at this time. Etiology N/A Signs/Symptoms: N/A Malnutrition Related to Morbid Obesity Malnutrition related to morbid obesity No Intervention/Recommendation Comments Continue with Regular diet as ordered. Expected Outcomes/Goals Expected Outcomes/Goals 1. PO intake to continue to meet >75% of nutritional needs . 2. Monitor PO intake, wt, nutrition related labs, and skin integrity to trend WNL. 3. F/U as low risk in 7-10 days, 12/26-12/29
--- NOTE | 2019-01-07 21:39 | Progress Notes ---
DATE: 01/07/2019 SUBJECTIVE: A 73-year-old male, currently in the hospital. He is pretty confused on exam, stares blankly, really poor concentration and focus, asking questions, he just looks away when I asked him a question, he looks at me and then looks away, internally preoccupied, ongoing concerns for psychosis, but he is denying. The patient may be approaching his baseline. He is not aggressive or agitated. Per oncology social work, daughter is involved. We are trying to find a place for the patient to go. There is currently no place for the patient to go home. The patient cannot take care of his basic needs given the extent and severity of his current confusional state. JOB# [id number]
[2019-01-08] MEDS: Rivastigmine 4.6 mg/24 hr Tdm TD SCH (09:29)
[2019-01-08] MEDS: Pantoprazole 40 mg EC Tab PO SCH (09:30)
--- NOTE | 2019-01-08 12:35 | Internal Medicine Prog Note ---
Internal Medicine Subjective - Subjective Patient seen and examined:: with staff, chart reviewed Patient is:: awake, non-verbal, non-interactive, in bed Per staff patient has:: no adverse event, no episodes of fall, poor oral intake , tolerating meds Internal Medicine Objective - Physical Exam Vitals and I&O: Vital Signs Temp 97.5 F 01/08/19 06:29 Pulse 67 01/08/19 06:29 Resp 20 01/08/19 06:29 BP 126/73 01/08/19 06:29 Pulse Ox 97 01/08/19 06:29 Intake & Output 01/07/19 01/08/19 01/08/19 18:59 06:59 18:59 Intake Total 300 Balance 300 Intake: Oral 300 Other: # Voids 2 # Bowel Movements 0 Active Medications: Current Medications Acetaminophen (Tylenol) 650 mg PO Q4HR PRN PRN Reason: Mild Pain (Scale 1-3) Stop: 02/11/19 22:23 Acetaminophen (Tylenol) 650 mg PO Q4H PRN PRN Reason: TEMP ABOVE 100 Stop: 03/05/19 09:46 Calamine/Phenol (Calmoseptine) 1 appl TP QID PRN PRN Reason: Skin Irritation Stop: 02/26/19 16:40 Lorazepam (Ativan) 0.5 mg PO Q4H PRN; Protocol PRN Reason: Anxiety Stop: 02/11/19 22:23 Last Admin: 01/07/19 20:45 Dose: 0.5 mg Magnesium Hydroxide (Milk Of Magnesia) 30 ml PO HS PRN PRN Reason: Constipation Memantine (Namenda) 5 mg PO BID [facility] Stop: 02/24/19 08:59 Last Admin: 01/08/19 09:30 Dose: 5 mg Pantoprazole Sodium (Protonix) 40 mg PO DAILY [facility] Stop: 02/12/19 08:59 Last Admin: 01/08/19 09:30 Dose: 40 mg Quetiapine Fumarate (Seroquel) 12.5 mg PO BID [facility]; Protocol Stop: 02/14/19 08:59 Last Admin: 01/08/19 09:30 Dose: 12.5 mg Rivastigmine (Exelon 4.6 Mg/24 Hr Tdm) 1 patch TD DAILY [facility] Stop: 02/12/19 08:59 Last Admin: 01/08/19 09:29 Dose: 1 patch Tamsulosin HCl (Flomax) 0.4 mg PO HS [facility] Stop: 02/12/19 20:59 Last Admin: 01/07/19 20:44 Dose: 0.4 mg Zolpidem Tartrate (Ambien) 5 mg PO HS PRN PRN Reason: Insomnia Stop: 02/11/19 22:23 Last Admin: 01/08/19 01:06 Dose: 5 mg General: demented, disheveled, thin HEENT: NC/AT, PERRLA, EOMI Neck: Supple, No JVD Lungs: CTAB Cardiovascular: RRR, Normal S1, Normal S2, with murmur Abdomen: soft, non-tender, thin, positive bowel sound Extremities: excoriation, deformity Neurological: no change Internal Medicine Assmt/Plan - Assessment Assessment: ASSESSMENT AND PLAN: Parkinson's disorder, Alzheimer's dementia, BPH, gastroesophageal reflux disease. - Plan Plan: PLAN: We will place the patient on fall precaution. We will try to see what his medication for Parkinson's. Continue on Flomax. Continue on proton pump inhibitor. We will continue monitoring closely with you, Dr. Kinney. Nutritional Asmnt/Malnutr-PDOC - Dietary Evaluation Malnutrition Findings (Please click <Entered> for more info): Nutritional Asmnt/Malnutrition Start: 12/19/18 15: 45 Text: Status: Complete Freq: Protocol: Document 12/19/18 15:45 RINKU (Rec: 12/19/18 15:48 RINKU [email or web address]) Nutritional Asmnt/Malnutrition Patient General Information Nutritional Screening Low Risk Diagnosis Psychosis NOS Pertinent Medical Hx/Surgical Hx Parkinsons, Dementia (limited , no H&P) Subjective Information Pt is a 73-year-old male admitted on 12/13 d/t increased agitation, aggressive behavior, and anxiety. Pt is eating 80% of meals Per Meal/ Nutrition Activity Record. Dietary is currently providing an estimated 2790 kcals and 125 gm Pro, per Pt PO intake this is providing an estimated 2230 kcals and 100gm Pro to meet 100+% kcal and 100+% Pro needs- adequate to meet estimated nutritional needs. Pt has bruising, wounds are healing and scabbed over. HT: 57 WT: 195 LB (88.64 kg) ABW: 160 LB (72.61 kg) BMI: 30.54 (Obese) GI: WNL, Soft, Non-tender, Round BM: 12/17 x1 I/O: 480/Not Noted Skin: Area of concern Wound: LINNEA knees scabs. Lt Smith rash with pink. LT forearm bruise with discoloration. Oleksandr: 23 Diet Order: Regular Estimated Energy Needs: ( Geriatric, ABW) 9181-5182 kcals (25-30 kcals/ kg) 73-87g Pro (1.0-1.2 g/kg) 5510-4239 ml (25-30 ml/kg) Current Diet Order/ Nutrition Support Regular Pertinent Medications MOM (PRN), Protonix, Flomax Pertinent Labs No labs to report Nutritional Hx/Data Height 1.7 m Height (Calculated Centimeters) 170.2 Current Weight (lbs) 88.451 kg Weight (Calculated Kilograms) 88.5 Weight (Calculated Grams) 17068.5 [place] Body Weight 148 LB (67.27 kg) % [place] Body Weight 132 Body Mass Index (BMI) 30.5 Weight Status Obese GI Symptoms Last BM 12/17 x1 Skin Integrity/Comment: Wound: LINNEA knees scabs. Lt Smith rash with pink. LT forearm bruise with discoloration. Oleksandr: 23 Current %PO Good (75-100%) Estimated Nutritional Goals BEE in Kcals: Adj wt of IBW Calories/Kcals/Kg 25-30 Kcals Calculated 4168-1441 Protein: Adj wt of IBW Protein g/k.0-1.2 Protein Calculated 73-87 Fluid: ml 1564-5162 ml (25-30 ml/kg) Nutritional Problem 1. Problem Problem No nutrition diagnosis at this time. Etiology N/A Signs/Symptoms: N/A Malnutrition Related to Morbid Obesity Malnutrition related to morbid obesity No Intervention/Recommendation Comments Continue with Regular diet as ordered. Expected Outcomes/Goals Expected Outcomes/Goals 1. PO intake to continue to meet >75% of nutritional needs . 2. Monitor PO intake, wt, nutrition related labs, and skin integrity to trend WNL. 3. F/U as low risk in 7-10 days, 12/26-12/29
--- NOTE | 2019-01-08 19:14 | Progress Notes ---
DATE: SUBJECTIVE: A 73-year-old male seen today on 01/08/2019, very confused, disoriented, believes "it is 1989." He does not know the month. Very distracted, does not know where he is or what is going on. I have to repeat myself multiple times then he will answer the question, but he will give me a confused answer. No place for the patient to go. We are attempting to place him somewhere, but having some difficulty given his history of aggression. He is redirectable, calm right now. We will continue to monitor. JOB# [id number]
[2019-01-09] MEDS: Rivastigmine 4.6 mg/24 hr Tdm TD SCH (09:01)
[2019-01-09] MEDS: Pantoprazole 40 mg EC Tab PO SCH (09:02)
--- NOTE | 2019-01-09 12:31 | Internal Medicine Prog Note ---
Internal Medicine Subjective - Subjective Patient seen and examined:: with staff, chart reviewed Patient is:: awake, non-verbal, non-interactive, in bed Per staff patient has:: no adverse event, no episodes of fall, poor oral intake , tolerating meds Internal Medicine Objective - Physical Exam Vitals and I&O: Vital Signs Temp 98 F 01/09/19 06:41 Pulse 84 01/09/19 06:41 Resp 20 01/09/19 08:00 BP 120/68 01/09/19 06:41 Pulse Ox 99 01/09/19 06:41 Intake & Output 01/08/19 01/09/19 01/09/19 18:59 06:59 18:59 Intake Total 120 Balance 120 Intake: Oral 120 Other: # Voids 3 # Bowel Movements 0 Stool Characteristics Soft Soft Soft Formed Formed Formed Brown Brown Brown Active Medications: Current Medications Acetaminophen (Tylenol) 650 mg PO Q4HR PRN PRN Reason: Mild Pain (Scale 1-3) Stop: 02/11/19 22:23 Acetaminophen (Tylenol) 650 mg PO Q4H PRN PRN Reason: TEMP ABOVE 100 Stop: 03/05/19 09:46 Calamine/Phenol (Calmoseptine) 1 appl TP QID PRN PRN Reason: Skin Irritation Stop: 02/26/19 16:40 Lorazepam (Ativan) 0.5 mg PO Q4H PRN; Protocol PRN Reason: Anxiety Stop: 02/11/19 22:23 Last Admin: 01/07/19 20:45 Dose: 0.5 mg Magnesium Hydroxide (Milk Of Magnesia) 30 ml PO HS PRN PRN Reason: Constipation Memantine (Namenda) 5 mg PO BID [facility] Stop: 02/24/19 08:59 Last Admin: 01/09/19 09:02 Dose: 5 mg Pantoprazole Sodium (Protonix) 40 mg PO DAILY [facility] Stop: 02/12/19 08:59 Last Admin: 01/09/19 09:02 Dose: 40 mg Quetiapine Fumarate (Seroquel) 12.5 mg PO BID [facility]; Protocol Stop: 02/14/19 08:59 Last Admin: 01/09/19 09:02 Dose: 12.5 mg Rivastigmine (Exelon 4.6 Mg/24 Hr Tdm) 1 patch TD DAILY [facility] Stop: 02/12/19 08:59 Last Admin: 01/09/19 09:01 Dose: 1 patch Tamsulosin HCl (Flomax) 0.4 mg PO HS [facility] Stop: 02/12/19 20:59 Last Admin: 01/08/19 20: Dose: 0.4 mg Zolpidem Tartrate (Ambien) 5 mg PO HS PRN PRN Reason: Insomnia Stop: 02/11/19 22:23 Last Admin: 01/08/19 20:27 Dose: 5 mg General: demented, disheveled, thin HEENT: NC/AT, PERRLA, EOMI Neck: Supple, No JVD Lungs: CTAB Cardiovascular: RRR, Normal S1, Normal S2, with murmur Abdomen: soft, non-tender, thin, positive bowel sound Extremities: excoriation, deformity Neurological: no change Internal Medicine Assmt/Plan - Assessment Assessment: ASSESSMENT AND PLAN: Parkinson's disorder, Alzheimer's dementia, BPH, gastroesophageal reflux disease. - Plan Plan: PLAN: We will place the patient on fall precaution. We will try to see what his medication for Parkinson's. Continue on Flomax. Continue on proton pump inhibitor. We will continue monitoring closely with you, Dr. Kinney. Nutritional Asmnt/Malnutr-PDOC - Dietary Evaluation Malnutrition Findings (Please click <Entered> for more info): Nutritional Asmnt/Malnutrition Start: 12/19/18 15: 45 Text: Status: Complete Freq: Protocol: Document 12/19/18 15:45 RINKU (Rec: 12/19/18 15:48 RINKU [email or web address]) Nutritional Asmnt/Malnutrition Patient General Information Nutritional Screening Low Risk Diagnosis Psychosis NOS Pertinent Medical Hx/Surgical Hx Parkinsons, Dementia (limited , no H&P) Subjective Information Pt is a 73-year-old male admitted on 12/13 d/t increased agitation, aggressive behavior, and anxiety. Pt is eating 80% of meals Per Meal/ Nutrition Activity Record. Dietary is currently providing an estimated 2790 kcals and 125 gm Pro, per Pt PO intake this is providing an estimated 2230 kcals and 100gm Pro to meet 100+% kcal and 100+% Pro needs- adequate to meet estimated nutritional needs. Pt has bruising, wounds are healing and scabbed over. HT: 57 WT: 195 LB (88.64 kg) ABW: 160 LB (72.61 kg) BMI: 30.54 (Obese) GI: WNL, Soft, Non-tender, Round BM: 12/17 x1 I/O: 480/Not Noted Skin: Area of concern Wound: LINNEA knees scabs. Lt Smith rash with pink. LT forearm bruise with discoloration. Oleksandr: 23 Diet Order: Regular Estimated Energy Needs: ( Geriatric, ABW) 8996-8740 kcals (25-30 kcals/ kg) 73-87g Pro (1.0-1.2 g/kg) 4549-1131 ml (25-30 ml/kg) Current Diet Order/ Nutrition Support Regular Pertinent Medications MOM (PRN), Protonix, Flomax Pertinent Labs No labs to report Nutritional Hx/Data Height 1.7 m Height (Calculated Centimeters) 170.2 Current Weight (lbs) 88.451 kg Weight (Calculated Kilograms) 88.5 Weight (Calculated Grams) 18311.5 [place] Body Weight 148 LB (67.27 kg) % [place] Body Weight 132 Body Mass Index (BMI) 30.5 Weight Status Obese GI Symptoms Last BM 12/17 x1 Skin Integrity/Comment: Wound: LINNEA knees scabs. Lt Smith rash with pink. LT forearm bruise with discoloration. Oleksandr: 23 Current %PO Good (75-100%) Estimated Nutritional Goals BEE in Kcals: Adj wt of IBW Calories/Kcals/Kg 25-30 Kcals Calculated 0989-5357 Protein: Adj wt of IBW Protein g/k.0-1.2 Protein Calculated 73-87 Fluid: ml 9361-3715 ml (25-30 ml/kg) Nutritional Problem 1. Problem Problem No nutrition diagnosis at this time. Etiology N/A Signs/Symptoms: N/A Malnutrition Related to Morbid Obesity Malnutrition related to morbid obesity No Intervention/Recommendation Comments Continue with Regular diet as ordered. Expected Outcomes/Goals Expected Outcomes/Goals 1. PO intake to continue to meet >75% of nutritional needs . 2. Monitor PO intake, wt, nutrition related labs, and skin integrity to trend WNL. 3. F/U as low risk in 7-10 days, 12/26-12/29
--- NOTE | 2019-01-09 22:51 | Progress Notes ---
DATE: 01/09/2019 SUBJECTIVE: The patient is still yelling, shouting; AO to name only. He is pretty calm when I see him, but just rambling; does not know where he is or what is going on, just knows his name, stares out in space, very distracted, likely at his baseline, pending placements. No acting out behaviors right now. Sometimes yells. We are trying to find him placement staff, very involved. We will continue to monitor. Vitals were noted. Medications were reviewed. JOB# [id number]
[2019-01-10] MEDS: Pantoprazole 40 mg EC Tab PO SCH (08:14)
[2019-01-10] MEDS: Rivastigmine 4.6 mg/24 hr Tdm TD SCH (08:14)
--- NOTE | 2019-01-10 12:59 | Internal Medicine Prog Note ---
Internal Medicine Subjective - Subjective Patient seen and examined:: with staff, chart reviewed Patient is:: awake, non-verbal, non-interactive, in bed Per staff patient has:: no adverse event, no episodes of fall, poor oral intake , tolerating meds Internal Medicine Objective - Physical Exam Vitals and I&O: Vital Signs Temp 98.1 F 01/10/19 06:33 Pulse 74 01/10/19 06:33 Resp 19 01/10/19 06:33 BP 126/67 01/10/19 06:33 Pulse Ox 97 01/10/19 06:33 Intake & Output 01/09/19 01/10/19 01/10/19 18:59 06:59 18:59 Intake Total 120 Balance 120 Intake: Oral 120 Other: # Voids 4 3 # Bowel Movements 1 Stool Characteristics Soft Soft Soft Formed Formed Formed Brown Brown Brown Active Medications: Current Medications Acetaminophen (Tylenol) 650 mg PO Q4HR PRN PRN Reason: Mild Pain (Scale 1-3) Stop: 02/11/19 22:23 Acetaminophen (Tylenol) 650 mg PO Q4H PRN PRN Reason: TEMP ABOVE 100 Stop: 03/05/19 09:46 Calamine/Phenol (Calmoseptine) 1 appl TP QID PRN PRN Reason: Skin Irritation Stop: 02/26/19 16:40 Lorazepam (Ativan) 0.5 mg PO Q4H PRN; Protocol PRN Reason: Anxiety Stop: 02/11/19 22:23 Last Admin: 01/07/19 20:45 Dose: 0.5 mg Magnesium Hydroxide (Milk Of Magnesia) 30 ml PO HS PRN PRN Reason: Constipation Memantine (Namenda) 5 mg PO BID [facility] Stop: 02/24/19 08:59 Last Admin: 01/10/19 08:14 Dose: 5 mg Pantoprazole Sodium (Protonix) 40 mg PO DAILY [facility] Stop: 02/12/19 08:59 Last Admin: 01/10/19 08:14 Dose: 40 mg Quetiapine Fumarate (Seroquel) 12.5 mg PO BID [facility]; Protocol Stop: 02/14/19 08:59 Last Admin: 01/10/19 08:14 Dose: 12.5 mg Rivastigmine (Exelon 4.6 Mg/24 Hr Tdm) 1 patch TD DAILY [facility] Stop: 02/12/19 08:59 Last Admin: 01/10/19 08:14 Dose: 1 patch Tamsulosin HCl (Flomax) 0.4 mg PO HS [facility] Stop: 02/12/19 20:59 Last Admin: 01/09/19 21:02 Dose: 0.4 mg Zolpidem Tartrate (Ambien) 5 mg PO HS PRN PRN Reason: Insomnia Stop: 02/11/19 22:23 Last Admin: 01/09/19 21:02 Dose: 5 mg General: demented, disheveled, thin HEENT: NC/AT, PERRLA, EOMI Neck: Supple, No JVD Lungs: CTAB Cardiovascular: RRR, Normal S1, Normal S2, with murmur Abdomen: soft, non-tender, thin, positive bowel sound Extremities: excoriation, deformity Neurological: no change Internal Medicine Assmt/Plan - Assessment Assessment: ASSESSMENT AND PLAN: Parkinson's disorder, Alzheimer's dementia, BPH, gastroesophageal reflux disease. - Plan Plan: PLAN: We will place the patient on fall precaution. We will try to see what his medication for Parkinson's. Continue on Flomax. Continue on proton pump inhibitor. We will continue monitoring closely with you, Dr. Kinney. Nutritional Asmnt/Malnutr-PDOC - Dietary Evaluation Malnutrition Findings (Please click <Entered> for more info): Nutritional Asmnt/Malnutrition Start: 12/19/18 15: 45 Text: Status: Complete Freq: Protocol: Document 12/19/18 15:45 RINKU (Rec: 12/19/18 15:48 RINKU [id number]) Nutritional Asmnt/Malnutrition Patient General Information Nutritional Screening Low Risk Diagnosis Psychosis NOS Pertinent Medical Hx/Surgical Hx Parkinsons, Dementia (limited , no H&P) Subjective Information Pt is a 73-year-old male admitted on 12/13 d/t increased agitation, aggressive behavior, and anxiety. Pt is eating 80% of meals Per Meal/ Nutrition Activity Record. Dietary is currently providing an estimated 2790 kcals and 125 gm Pro, per Pt PO intake this is providing an estimated 2230 kcals and 100gm Pro to meet 100+% kcal and 100+% Pro needs- adequate to meet estimated nutritional needs. Pt has bruising, wounds are healing and scabbed over. HT: 57 WT: 195 LB (88.64 kg) ABW: 160 LB (72.61 kg) BMI: 30.54 (Obese) GI: WNL, Soft, Non-tender, Round BM: 12/17 x1 I/O: 480/Not Noted Skin: Area of concern Wound: LINNEA knees scabs. Lt Smith rash with pink. LT forearm bruise with discoloration. Oleksandr: 23 Diet Order: Regular Estimated Energy Needs: ( Geriatric, ABW) 6059-6075 kcals (25-30 kcals/ kg) 73-87g Pro (1.0-1.2 g/kg) 2144-7282 ml (25-30 ml/kg) Current Diet Order/ Nutrition Support Regular Pertinent Medications MOM (PRN), Protonix, Flomax Pertinent Labs No labs to report Nutritional Hx/Data Height 1.7 m Height (Calculated Centimeters) 170.2 Current Weight (lbs) 88.451 kg Weight (Calculated Kilograms) 88.5 Weight (Calculated Grams) 06045.5 [place] Body Weight 148 LB (67.27 kg) % [place] Body Weight 132 Body Mass Index (BMI) 30.5 Weight Status Obese GI Symptoms Last BM 12/17 x1 Skin Integrity/Comment: Wound: LINNEA knees scabs. Lt Smith rash with pink. LT forearm bruise with discoloration. Oleksandr: 23 Current %PO Good (75-100%) Estimated Nutritional Goals BEE in Kcals: Adj wt of IBW Calories/Kcals/Kg 25-30 Kcals Calculated 6651-8787 Protein: Adj wt of IBW Protein g/k.0-1.2 Protein Calculated 73-87 Fluid: ml 7991-9353 ml (25-30 ml/kg) Nutritional Problem 1. Problem Problem No nutrition diagnosis at this time. Etiology N/A Signs/Symptoms: N/A Malnutrition Related to Morbid Obesity Malnutrition related to morbid obesity No Intervention/Recommendation Comments Continue with Regular diet as ordered. Expected Outcomes/Goals Expected Outcomes/Goals 1. PO intake to continue to meet >75% of nutritional needs . 2. Monitor PO intake, wt, nutrition related labs, and skin integrity to trend WNL. 3. F/U as low risk in 7-10 days, 12/26-12/29
--- NOTE | 2019-01-10 23:55 | Progress Notes ---
DATE: 01/10/2019 SUBJECTIVE: The patient remains in a Rachel chair, extremely confused, disoriented, unable to really tell me where he is or what is going on. Currently pending placement, he is at his baseline. No agitation. Medications were noted. Vitals were reviewed. PLAN: We will continue to monitor. We are working hard on placement at this time. JOB# [id number]
[2019-01-11] MEDS: Rivastigmine 4.6 mg/24 hr Tdm TD SCH (10:05)
[2019-01-11] MEDS: Pantoprazole 40 mg EC Tab PO SCH (10:06)
--- NOTE | 2019-01-11 12:34 | Internal Medicine Prog Note ---
Internal Medicine Subjective - Subjective Patient seen and examined:: with staff, chart reviewed Patient is:: awake, non-verbal, non-interactive, in bed Per staff patient has:: no adverse event, no episodes of fall, poor oral intake , tolerating meds Internal Medicine Objective - Physical Exam Vitals and I&O: Vital Signs Temp 97.7 F 01/11/19 06:48 Pulse 72 01/11/19 06:48 Resp 19 01/11/19 11:07 BP 104/59 01/11/19 06:48 Pulse Ox 97 01/11/19 06:48 Intake & Output 01/10/19 01/11/19 01/11/19 18:59 06:59 18:59 Intake Total 1200 120 Balance 1200 120 Intake: Oral 1200 120 Other: # Voids 4 3 # Bowel Movements 1 Stool Characteristics Soft Soft Soft Formed Formed Formed Brown Brown Brown Active Medications: Current Medications Acetaminophen (Tylenol) 650 mg PO Q4HR PRN PRN Reason: Mild Pain (Scale 1-3) Stop: 02/11/19 22:23 Acetaminophen (Tylenol) 650 mg PO Q4H PRN PRN Reason: TEMP ABOVE 100 Stop: 03/05/19 09:46 Calamine/Phenol (Calmoseptine) 1 appl TP QID PRN PRN Reason: Skin Irritation Stop: 02/26/19 16:40 Lorazepam (Ativan) 0.5 mg PO Q4H PRN; Protocol PRN Reason: Anxiety Stop: 02/11/19 22:23 Last Admin: 01/11/19 10:06 Dose: 0.5 mg Magnesium Hydroxide (Milk Of Magnesia) 30 ml PO HS PRN PRN Reason: Constipation Memantine (Namenda) 5 mg PO BID [facility] Stop: 02/24/19 08:59 Last Admin: 01/11/19 10:05 Dose: 5 mg Pantoprazole Sodium (Protonix) 40 mg PO DAILY [facility] Stop: 02/12/19 08:59 Last Admin: 01/11/19 10:06 Dose: 40 mg Quetiapine Fumarate (Seroquel) 12.5 mg PO BID [facility]; Protocol Stop: 02/14/19 08:59 Last Admin: 01/11/19 10:05 Dose: 12.5 mg Rivastigmine (Exelon 4.6 Mg/24 Hr Tdm) 1 patch TD DAILY [facility] Stop: 02/12/19 08:59 Last Admin: 01/11/19 10:05 Dose: 1 patch Tamsulosin HCl (Flomax) 0.4 mg PO HS [facility] Stop: 02/12/19 20:59 Last Admin: 01/10/19 21:09 Dose: 0.4 mg Zolpidem Tartrate (Ambien) 5 mg PO HS PRN PRN Reason: Insomnia Stop: 02/11/19 22:23 Last Admin: 01/10/19 21:09 Dose: 5 mg General: demented, disheveled, thin HEENT: NC/AT, PERRLA, EOMI Neck: Supple, No JVD Lungs: CTAB Cardiovascular: RRR, Normal S1, Normal S2, with murmur Abdomen: soft, non-tender, thin, positive bowel sound Extremities: excoriation, deformity Neurological: no change Internal Medicine Assmt/Plan - Assessment Assessment: ASSESSMENT AND PLAN: Parkinson's disorder, Alzheimer's dementia, BPH, gastroesophageal reflux disease. - Plan Plan: PLAN: We will place the patient on fall precaution. We will try to see what his medication for Parkinson's. Continue on Flomax. Continue on proton pump inhibitor. We will continue monitoring closely with you, Dr. Kinney. Nutritional Asmnt/Malnutr-PDOC - Dietary Evaluation Malnutrition Findings (Please click <Entered> for more info): Nutritional Asmnt/Malnutrition Start: 12/19/18 15: 45 Text: Status: Complete Freq: Protocol: Document 12/19/18 15:45 RINKU (Rec: 12/19/18 15:48 RINKU [id number]) Nutritional Asmnt/Malnutrition Patient General Information Nutritional Screening Low Risk Diagnosis Psychosis NOS Pertinent Medical Hx/Surgical Hx Parkinsons, Dementia (limited , no H&P) Subjective Information Pt is a 73-year-old male admitted on 12/13 d/t increased agitation, aggressive behavior, and anxiety. Pt is eating 80% of meals Per Meal/ Nutrition Activity Record. Dietary is currently providing an estimated 2790 kcals and 125 gm Pro, per Pt PO intake this is providing an estimated 2230 kcals and 100gm Pro to meet 100+% kcal and 100+% Pro needs- adequate to meet estimated nutritional needs. Pt has bruising, wounds are healing and scabbed over. HT: 57 WT: 195 LB (88.64 kg) ABW: 160 LB (72.61 kg) BMI: 30.54 (Obese) GI: WNL, Soft, Non-tender, Round BM: 12/17 x1 I/O: 480/Not Noted Skin: Area of concern Wound: LINNEA knees scabs. Lt Smith rash with pink. LT forearm bruise with discoloration. Oleksandr: 23 Diet Order: Regular Estimated Energy Needs: ( Geriatric, ABW) 7980-4448 kcals (25-30 kcals/ kg) 73-87g Pro (1.0-1.2 g/kg) 0794-0044 ml (25-30 ml/kg) Current Diet Order/ Nutrition Support Regular Pertinent Medications MOM (PRN), Protonix, Flomax Pertinent Labs No labs to report Nutritional Hx/Data Height 1.7 m Height (Calculated Centimeters) 170.2 Current Weight (lbs) 88.451 kg Weight (Calculated Kilograms) 88.5 Weight (Calculated Grams) 86641.5 [place] Body Weight 148 LB (67.27 kg) % [place] Body Weight 132 Body Mass Index (BMI) 30.5 Weight Status Obese GI Symptoms Last BM 12/17 x1 Skin Integrity/Comment: Wound: LINNEA knees scabs. Lt Smith rash with pink. LT forearm bruise with discoloration. Oleksandr: 23 Current %PO Good (75-100%) Estimated Nutritional Goals BEE in Kcals: Adj wt of IBW Calories/Kcals/Kg 25-30 Kcals Calculated 8781-6813 Protein: Adj wt of IBW Protein g/k.0-1.2 Protein Calculated 73-87 Fluid: ml 0825-4661 ml (25-30 ml/kg) Nutritional Problem 1. Problem Problem No nutrition diagnosis at this time. Etiology N/A Signs/Symptoms: N/A Malnutrition Related to Morbid Obesity Malnutrition related to morbid obesity No Intervention/Recommendation Comments Continue with Regular diet as ordered. Expected Outcomes/Goals Expected Outcomes/Goals 1. PO intake to continue to meet >75% of nutritional needs . 2. Monitor PO intake, wt, nutrition related labs, and skin integrity to trend WNL. 3. F/U as low risk in 7-10 days, 12/26-12/29
--- NOTE | 2019-01-12 02:23 | Progress Notes ---
DATE: 01/11/2019 SUBJECTIVE: The patient is very confused in a Rachel chair at his baseline. We are trying to find him placement. He is gravely disabled, unable to care for his basic needs. No SI, no HI. Medications were noted. Vitals were reviewed. JOB# [id number]
--- NOTE | 2019-01-12 06:40 | Progress Notes ---
DATE: 01/12/2019 SUBJECTIVE: The patient remains very confused, disoriented, unable to care for his basic needs. We are trying to help him with placements. Otherwise, A and O to name only. No events. Medications were noted. Vitals reviewed, discussed with staff. JOB# [id number]
[2019-01-12] MEDS: Pantoprazole 40 mg EC Tab PO SCH (08:50)
[2019-01-12] MEDS: Rivastigmine 4.6 mg/24 hr Tdm TD SCH (08:51)
--- NOTE | 2019-01-12 13:58 | Internal Medicine Prog Note ---
Internal Medicine Subjective - Subjective Service Date: 01/12/19 Patient is:: awake, non-verbal, non-interactive, in bed Per staff patient has:: no adverse event, no episodes of fall, poor oral intake , tolerating meds Internal Medicine Objective - Physical Exam Vitals and I&O: Vital Signs Temp 98 F 01/12/19 06:36 Pulse 67 01/12/19 06:36 Resp 19 01/12/19 06:36 BP 96/64 01/12/19 06:36 Pulse Ox 97 01/12/19 06:36 Intake & Output 01/11/19 01/12/19 01/12/19 18:59 06:59 18:59 Intake Total 900 240 Balance 900 240 Intake: Oral 900 240 Other: # Voids 3 1 # Bowel Movements 0 Stool Characteristics Soft Formed Brown Active Medications: Current Medications Acetaminophen (Tylenol) 650 mg PO Q4HR PRN PRN Reason: Mild Pain (Scale 1-3) Stop: 02/11/19 22:23 Acetaminophen (Tylenol) 650 mg PO Q4H PRN PRN Reason: TEMP ABOVE 100 Stop: 03/05/19 09:46 Calamine/Phenol (Calmoseptine) 1 appl TP QID PRN PRN Reason: Skin Irritation Stop: 02/26/19 16:40 Lorazepam (Ativan) 0.5 mg PO Q4H PRN; Protocol PRN Reason: Anxiety Stop: 02/11/19 22:23 Last Admin: 01/12/19 08:50 Dose: 0.5 mg Magnesium Hydroxide (Milk Of Magnesia) 30 ml PO HS PRN PRN Reason: Constipation Memantine (Namenda) 5 mg PO BID [facility] Stop: 02/24/19 08:59 Last Admin: 01/12/19 08:50 Dose: 5 mg Pantoprazole Sodium (Protonix) 40 mg PO DAILY [facility] Stop: 02/12/19 08:59 Last Admin: 01/12/19 08:50 Dose: 40 mg Quetiapine Fumarate (Seroquel) 12.5 mg PO BID [facility]; Protocol Stop: 02/14/19 08:59 Last Admin: 01/12/19 08:50 Dose: 12.5 mg Rivastigmine (Exelon 4.6 Mg/24 Hr Tdm) 1 patch TD DAILY [facility] Stop: 02/12/19 08:59 Last Admin: 01/12/19 08:51 Dose: Not Given Tamsulosin HCl (Flomax) 0.4 mg PO HS [facility] Stop: 02/12/19 20:59 Last Admin: 01/11/19 20:39 Dose: 0.4 mg Zolpidem Tartrate (Ambien) 5 mg PO HS PRN PRN Reason: Insomnia Stop: 02/11/19 22:23 Last Admin: 01/11/19 20:39 Dose: 5 mg General: demented, disheveled, thin HEENT: NC/AT, PERRLA, EOMI Neck: Supple, No JVD Lungs: CTAB Cardiovascular: RRR, Normal S1, Normal S2, with murmur Abdomen: soft, non-tender, thin, positive bowel sound Extremities: excoriation, deformity Neurological: no change Internal Medicine Assmt/Plan - Assessment Assessment: ASSESSMENT AND PLAN: Parkinson's disorder, Alzheimer's dementia, BPH, gastroesophageal reflux disease. - Plan Plan: We will place the patient on fall precaution. Continue on Flomax. Continue on proton pump inhibitor. Nutritional Asmnt/Malnutr-PDOC - Dietary Evaluation Malnutrition Findings (Please click <Entered> for more info): Nutritional Asmnt/Malnutrition Start: 12/19/18 15: 45 Text: Status: Complete Freq: Protocol: Document 12/19/18 15:45 RINKU (Rec: 12/19/18 15:48 RINKU [id number]) Nutritional Asmnt/Malnutrition Patient General Information Nutritional Screening Low Risk Diagnosis Psychosis NOS Pertinent Medical Hx/Surgical Hx Parkinsons, Dementia (limited , no H&P) Subjective Information Pt is a 73-year-old male admitted on 12/13 d/t increased agitation, aggressive behavior, and anxiety. Pt is eating 80% of meals Per Meal/ Nutrition Activity Record. Dietary is currently providing an estimated 2790 kcals and 125 gm Pro, per Pt PO intake this is providing an estimated 2230 kcals and 100gm Pro to meet 100+% kcal and 100+% Pro needs- adequate to meet estimated nutritional needs. Pt has bruising, wounds are healing and scabbed over. HT: 57 WT: 195 LB (88.64 kg) ABW: 160 LB (72.61 kg) BMI: 30.54 (Obese) GI: WNL, Soft, Non-tender, Round BM: 12/17 x1 I/O: 480/Not Noted Skin: Area of concern Wound: LINNEA knees scabs. Lt Smith rash with pink. LT forearm bruise with discoloration. Oleksandr: 23 Diet Order: Regular Estimated Energy Needs: ( Geriatric, ABW) 8924-9819 kcals (25-30 kcals/ kg) 73-87g Pro (1.0-1.2 g/kg) 8797-3040 ml (25-30 ml/kg) Current Diet Order/ Nutrition Support Regular Pertinent Medications MOM (PRN), Protonix, Flomax Pertinent Labs No labs to report Nutritional Hx/Data Height 5 ft 7 in Height (Calculated Centimeters) 170.2 Current Weight (lbs) 195 lb Weight (Calculated Kilograms) 88.5 Weight (Calculated Grams) 41541.5 [place] Body Weight 148 LB (67.27 kg) % [place] Body Weight 132 Body Mass Index (BMI) 30.5 Weight Status Obese GI Symptoms Last BM 12/17 x1 Skin Integrity/Comment: Wound: LINNEA knees scabs. Lt Smith rash with pink. LT forearm bruise with discoloration. Oleksandr: 23 Current %PO Good (75-100%) Estimated Nutritional Goals BEE in Kcals: Adj wt of IBW Calories/Kcals/Kg 25-30 Kcals Calculated 7629-9241 Protein: Adj wt of IBW Protein g/k.0-1.2 Protein Calculated 73-87 Fluid: ml 5193-6540 ml (25-30 ml/kg) Nutritional Problem 1. Problem Problem No nutrition diagnosis at this time. Etiology N/A Signs/Symptoms: N/A Malnutrition Related to Morbid Obesity Malnutrition related to morbid obesity No Intervention/Recommendation Comments Continue with Regular diet as ordered. Expected Outcomes/Goals Expected Outcomes/Goals 1. PO intake to continue to meet >75% of nutritional needs . 2. Monitor PO intake, wt, nutrition related labs, and skin integrity to trend WNL. 3. F/U as low risk in 7-10 days, 12/26-12/29
[2019-01-13] MEDS: Pantoprazole 40 mg EC Tab PO SCH (08:29)
[2019-01-13] MEDS: Rivastigmine 4.6 mg/24 hr Tdm TD SCH (08:29)
--- NOTE | 2019-01-13 15:36 | Internal Medicine Prog Note ---
Internal Medicine Subjective - Subjective Service Date: 01/13/19 Patient is:: awake, non-verbal, non-interactive, in bed Per staff patient has:: no adverse event, no episodes of fall, poor oral intake , tolerating meds Internal Medicine Objective - Physical Exam Vitals and I&O: Vital Signs Temp 97.7 F 01/13/19 06:50 Pulse 63 01/13/19 06:50 Resp 20 01/13/19 08:00 BP 99/60 01/13/19 06:50 Pulse Ox 98 01/13/19 06:50 Intake & Output 01/12/19 01/13/19 01/13/19 18:59 06:59 18:59 Intake Total 1100 240 Balance 1100 240 Intake: Oral 1100 240 Other: # Voids 2 1 # Bowel Movements 0 Active Medications: Current Medications Acetaminophen (Tylenol) 650 mg PO Q4H PRN PRN Reason: TEMP ABOVE 100 Stop: 03/05/19 09:46 Calamine/Phenol (Calmoseptine) 1 appl TP QID PRN PRN Reason: Skin Irritation Stop: 02/26/19 16:40 Lorazepam (Ativan) 0.5 mg PO Q4H PRN; Protocol PRN Reason: Anxiety Stop: 02/11/19 22:23 Last Admin: 01/12/19 17:23 Dose: 0.5 mg Pantoprazole Sodium (Protonix) 40 mg PO DAILY LISANDRO Stop: 02/12/19 08:59 Last Admin: 01/13/19 08:29 Dose: 40 mg Quetiapine Fumarate (Seroquel) 12.5 mg PO BID LISANDRO; Protocol Stop: 02/14/19 08:59 Last Admin: 01/13/19 08:29 Dose: 12.5 mg Rivastigmine (Exelon 4.6 Mg/24 Hr Tdm) 1 patch TD DAILY LISANDRO Stop: 02/12/19 08:59 Last Admin: 01/13/19 08:29 Dose: Not Given Tamsulosin HCl (Flomax) 0.4 mg PO HS LISANDRO Stop: 02/12/19 20:59 Last Admin: 01/12/19 21:35 Dose: 0.4 mg Zolpidem Tartrate (Ambien) 5 mg PO HS PRN PRN Reason: Insomnia Stop: 02/11/19 22:23 Last Admin: 01/12/19 21:36 Dose: 5 mg General: demented, disheveled, thin HEENT: NC/AT, PERRLA, EOMI Neck: Supple, No JVD Lungs: CTAB Cardiovascular: RRR, Normal S1, Normal S2, with murmur Abdomen: soft, non-tender, thin, positive bowel sound Extremities: excoriation, deformity Neurological: no change Internal Medicine Assmt/Plan - Assessment Assessment: ASSESSMENT AND PLAN: Parkinson's disorder, Alzheimer's dementia, BPH, gastroesophageal reflux disease. - Plan Plan: We will place the patient on fall precaution. Continue on Flomax. Continue on proton pump inhibitor. Nutritional Asmnt/Malnutr-PDOC - Dietary Evaluation Malnutrition Findings (Please click <Entered> for more info): Nutritional Asmnt/Malnutrition Start: 12/19/18 15: 45 Text: Status: Complete Freq: Protocol: Document 12/19/18 15:45 RINKU (Rec: 12/19/18 15:48 RINKU [id number]) Nutritional Asmnt/Malnutrition Patient General Information Nutritional Screening Low Risk Diagnosis Psychosis NOS Pertinent Medical Hx/Surgical Hx Parkinsons, Dementia (limited , no H&P) Subjective Information Pt is a 73-year-old male admitted on 12/13 d/t increased agitation, aggressive behavior, and anxiety. Pt is eating 80% of meals Per Meal/ Nutrition Activity Record. Dietary is currently providing an estimated 2790 kcals and 125 gm Pro, per Pt PO intake this is providing an estimated 2230 kcals and 100gm Pro to meet 100+% kcal and 100+% Pro needs- adequate to meet estimated nutritional needs. Pt has bruising, wounds are healing and scabbed over. HT: 57 WT: 195 LB (88.64 kg) ABW: 160 LB (72.61 kg) BMI: 30.54 (Obese) GI: WNL, Soft, Non-tender, Round BM: 12/17 x1 I/O: 480/Not Noted Skin: Area of concern Wound: LINNEA knees scabs. Lt Smith rash with pink. LT forearm bruise with discoloration. Oleksandr: 23 Diet Order: Regular Estimated Energy Needs: ( Geriatric, ABW) 7581-4724 kcals (25-30 kcals/ kg) 73-87g Pro (1.0-1.2 g/kg) 5055-4038 ml (25-30 ml/kg) Current Diet Order/ Nutrition Support Regular Pertinent Medications MOM (PRN), Protonix, Flomax Pertinent Labs No labs to report Nutritional Hx/Data Height 5 ft 7 in Height (Calculated Centimeters) 170.2 Current Weight (lbs) 195 lb Weight (Calculated Kilograms) 88.5 Weight (Calculated Grams) 14036.5 [place] Body Weight 148 LB (67.27 kg) % [place] Body Weight 132 Body Mass Index (BMI) 30.5 Weight Status Obese GI Symptoms Last BM 12/17 x1 Skin Integrity/Comment: Wound: LINNEA knees scabs. Lt Smith rash with pink. LT forearm bruise with discoloration. Oleksandr: 23 Current %PO Good (75-100%) Estimated Nutritional Goals BEE in Kcals: Adj wt of IBW Calories/Kcals/Kg 25-30 Kcals Calculated 2106-3699 Protein: Adj wt of IBW Protein g/k.0-1.2 Protein Calculated 73-87 Fluid: ml 2454-9083 ml (25-30 ml/kg) Nutritional Problem 1. Problem Problem No nutrition diagnosis at this time. Etiology N/A Signs/Symptoms: N/A Malnutrition Related to Morbid Obesity Malnutrition related to morbid obesity No Intervention/Recommendation Comments Continue with Regular diet as ordered. Expected Outcomes/Goals Expected Outcomes/Goals 1. PO intake to continue to meet >75% of nutritional needs . 2. Monitor PO intake, wt, nutrition related labs, and skin integrity to trend WNL. 3. F/U as low risk in 7-10 days, 12/26-12/29
--- NOTE | 2019-01-13 19:28 | Progress Notes ---
DATE: 01/13/2019 SUBJECTIVE: The patient in the hospital, mostly confused, keeps to self, some behavioral disturbances overnight. There are some things on the ground is a big mess of paper on the ground next to him, otherwise following unit rules and directions, disorientation noted, just says laya today and tells me his name, otherwise cannot tell me much else. Vitals were noted. MEDICATIONS: Reviewed. PLAN: We will continue to monitor. JOB# [id number]
[2019-01-14] MEDS: Pantoprazole 40 mg EC Tab PO SCH (08:40)
[2019-01-14] MEDS: Rivastigmine 4.6 mg/24 hr Tdm TD SCH (08:41)
--- NOTE | 2019-01-14 12:32 | Internal Medicine Prog Note ---
Internal Medicine Subjective - Subjective Patient seen and examined:: with staff, chart reviewed Patient is:: awake, non-verbal, non-interactive, in bed Per staff patient has:: no adverse event, no episodes of fall, poor oral intake , tolerating meds Internal Medicine Objective - Physical Exam Vitals and I&O: Vital Signs Temp 97.5 F 01/14/19 06:49 Pulse 60 01/14/19 06:49 Resp 20 01/14/19 07:52 BP 109/66 01/14/19 06:49 Pulse Ox 99 01/14/19 06:49 Intake & Output 01/13/19 01/14/19 01/14/19 18:59 06:59 18:59 Intake Total 950 60 Balance 950 60 Intake: Oral 950 60 Other: # Voids 3 1 # Bowel Movements 1 0 Active Medications: Current Medications Acetaminophen (Tylenol) 650 mg PO Q4H PRN PRN Reason: TEMP ABOVE 100 Stop: 03/05/19 09:46 Calamine/Phenol (Calmoseptine) 1 appl TP QID PRN PRN Reason: Skin Irritation Stop: 02/26/19 16:40 Lorazepam (Ativan) 0.5 mg PO Q4H PRN; Protocol PRN Reason: Anxiety Stop: 02/11/19 22:23 Last Admin: 01/14/19 08:49 Dose: 0.5 mg Pantoprazole Sodium (Protonix) 40 mg PO DAILY LISANDRO Stop: 02/12/19 08:59 Last Admin: 01/14/19 08:40 Dose: 40 mg Quetiapine Fumarate (Seroquel) 12.5 mg PO BID LISANDRO; Protocol Stop: 02/14/19 08:59 Last Admin: 01/14/19 08:40 Dose: 12.5 mg Rivastigmine (Exelon 4.6 Mg/24 Hr Tdm) 1 patch TD DAILY LISANDRO Stop: 02/12/19 08:59 Last Admin: 01/14/19 08:41 Dose: Not Given Tamsulosin HCl (Flomax) 0.4 mg PO HS LISANDRO Stop: 02/12/19 20:59 Last Admin: 01/13/19 21:35 Dose: 0.4 mg Zolpidem Tartrate (Ambien) 5 mg PO HS PRN PRN Reason: Insomnia Stop: 02/11/19 22:23 Last Admin: 01/13/19 21:35 Dose: 5 mg General: demented, disheveled, thin HEENT: NC/AT, PERRLA, EOMI Neck: Supple, No JVD Lungs: CTAB Cardiovascular: RRR, Normal S1, Normal S2, with murmur Abdomen: soft, non-tender, thin, positive bowel sound Extremities: excoriation, deformity Neurological: no change Internal Medicine Assmt/Plan - Assessment Assessment: ASSESSMENT AND PLAN: Parkinson's disorder, Alzheimer's dementia, BPH, gastroesophageal reflux disease. - Plan Plan: PLAN: We will place the patient on fall precaution. We will try to see what his medication for Parkinson's. Continue on Flomax. Continue on proton pump inhibitor. We will continue monitoring closely with you, Dr. Kinney. Nutritional Asmnt/Malnutr-PDOC - Dietary Evaluation Malnutrition Findings (Please click <Entered> for more info): Nutritional Asmnt/Malnutrition Start: 12/19/18 15: 45 Text: Status: Complete Freq: Protocol: Document 12/19/18 15:45 RINKU (Rec: 12/19/18 15:48 RINKU [id number]) Nutritional Asmnt/Malnutrition Patient General Information Nutritional Screening Low Risk Diagnosis Psychosis NOS Pertinent Medical Hx/Surgical Hx Parkinsons, Dementia (limited , no H&P) Subjective Information Pt is a 73-year-old male admitted on 12/13 d/t increased agitation, aggressive behavior, and anxiety. Pt is eating 80% of meals Per Meal/ Nutrition Activity Record. Dietary is currently providing an estimated 2790 kcals and 125 gm Pro, per Pt PO intake this is providing an estimated 2230 kcals and 100gm Pro to meet 100+% kcal and 100+% Pro needs- adequate to meet estimated nutritional needs. Pt has bruising, wounds are healing and scabbed over. HT: 57 WT: 195 LB (88.64 kg) ABW: 160 LB (72.61 kg) BMI: 30.54 (Obese) GI: WNL, Soft, Non-tender, Round BM: 12/17 x1 I/O: 480/Not Noted Skin: Area of concern Wound: LINNEA knees scabs. Lt Smith rash with pink. LT forearm bruise with discoloration. Oleksandr: 23 Diet Order: Regular Estimated Energy Needs: ( Geriatric, ABW) 4057-9378 kcals (25-30 kcals/ kg) 73-87g Pro (1.0-1.2 g/kg) 9176-4390 ml (25-30 ml/kg) Current Diet Order/ Nutrition Support Regular Pertinent Medications MOM (PRN), Protonix, Flomax Pertinent Labs No labs to report Nutritional Hx/Data Height 1.7 m Height (Calculated Centimeters) 170.2 Current Weight (lbs) 88.451 kg Weight (Calculated Kilograms) 88.5 Weight (Calculated Grams) 85064.5 [place] Body Weight 148 LB (67.27 kg) % [place] Body Weight 132 Body Mass Index (BMI) 30.5 Weight Status Obese GI Symptoms Last BM 12/17 x1 Skin Integrity/Comment: Wound: LINNEA knees scabs. Lt Smith rash with pink. LT forearm bruise with discoloration. Oleksandr: 23 Current %PO Good (75-100%) Estimated Nutritional Goals BEE in Kcals: Adj wt of IBW Calories/Kcals/Kg 25-30 Kcals Calculated 4625-7431 Protein: Adj wt of IBW Protein g/k.0-1.2 Protein Calculated 73-87 Fluid: ml 6178-8481 ml (25-30 ml/kg) Nutritional Problem 1. Problem Problem No nutrition diagnosis at this time. Etiology N/A Signs/Symptoms: N/A Malnutrition Related to Morbid Obesity Malnutrition related to morbid obesity No Intervention/Recommendation Comments Continue with Regular diet as ordered. Expected Outcomes/Goals Expected Outcomes/Goals 1. PO intake to continue to meet >75% of nutritional needs . 2. Monitor PO intake, wt, nutrition related labs, and skin integrity to trend WNL. 3. F/U as low risk in 7-10 days, 12/26-12/29
--- NOTE | 2019-01-15 03:05 | Progress Notes ---
DATE: 01/14/2019 SUBJECTIVE: The patient is very confused, disoriented, but calm, no agitation, no escalation of behaviors, sociable, getting along well with others. Labs were reviewed. Medications were reviewed. Vitals were reviewed. He cannot take care of his basic needs. We are trying to help him with placement, currently with grave disability. JOB# [id number]
[2019-01-15] MEDS: Pantoprazole 40 mg EC Tab PO SCH (08:28)
[2019-01-15] MEDS: Rivastigmine 4.6 mg/24 hr Tdm TD SCH (08:41)
--- NOTE | 2019-01-15 13:02 | Internal Medicine Prog Note ---
Internal Medicine Subjective - Subjective Patient seen and examined:: with staff, chart reviewed Patient is:: awake, non-verbal, non-interactive, in bed Per staff patient has:: no adverse event, no episodes of fall, poor oral intake , tolerating meds Internal Medicine Objective - Physical Exam Vitals and I&O: Vital Signs Temp 98.0 F 01/15/19 06:35 Pulse 73 01/15/19 06:35 Resp 19 01/15/19 07:33 BP 105/64 01/15/19 06:35 Pulse Ox 96 01/15/19 06:35 Intake & Output 01/14/19 01/15/19 01/15/19 18:59 06:59 18:59 Intake Total 300 Balance 300 Intake: Oral 300 Other: # Voids 2 2 # Bowel Movements 0 0 Active Medications: Current Medications Acetaminophen (Tylenol) 650 mg PO Q4H PRN PRN Reason: TEMP ABOVE 100 Stop: 03/05/19 09:46 Calamine/Phenol (Calmoseptine) 1 appl TP QID PRN PRN Reason: Skin Irritation Stop: 02/26/19 16:40 Lorazepam (Ativan) 0.5 mg PO Q4H PRN; Protocol PRN Reason: Anxiety Stop: 02/11/19 22:23 Last Admin: 01/14/19 08:49 Dose: 0.5 mg Pantoprazole Sodium (Protonix) 40 mg PO DAILY LISANDRO Stop: 02/12/19 08:59 Last Admin: 01/15/19 08:28 Dose: 40 mg Quetiapine Fumarate (Seroquel) 12.5 mg PO BID LISANDRO; Protocol Stop: 02/14/19 08:59 Last Admin: 01/15/19 08:39 Dose: 12.5 mg Rivastigmine (Exelon 4.6 Mg/24 Hr Tdm) 1 patch TD DAILY LISANDRO Stop: 02/12/19 08:59 Last Admin: 01/15/19 08:41 Dose: Not Given Tamsulosin HCl (Flomax) 0.4 mg PO HS LISANDRO Stop: 02/12/19 20:59 Last Admin: 01/14/19 20:53 Dose: 0.4 mg Zolpidem Tartrate (Ambien) 5 mg PO HS PRN PRN Reason: Insomnia Stop: 02/11/19 22:23 Last Admin: 01/14/19 20:54 Dose: 5 mg General: demented, disheveled, thin HEENT: NC/AT, PERRLA, EOMI Neck: Supple, No JVD Lungs: CTAB Cardiovascular: RRR, Normal S1, Normal S2, with murmur Abdomen: soft, non-tender, thin, positive bowel sound Extremities: excoriation, deformity Neurological: no change Internal Medicine Assmt/Plan - Assessment Assessment: ASSESSMENT AND PLAN: Parkinson's disorder, Alzheimer's dementia, BPH, gastroesophageal reflux disease. - Plan Plan: PLAN: We will place the patient on fall precaution. We will try to see what his medication for Parkinson's. Continue on Flomax. Continue on proton pump inhibitor. We will continue monitoring closely with you, Dr. Kinney. meds renewed Nutritional Asmnt/Malnutr-PDOC - Dietary Evaluation Malnutrition Findings (Please click <Entered> for more info): Nutritional Asmnt/Malnutrition Start: 12/19/18 15: 45 Text: Status: Complete Freq: Protocol: Document 12/19/18 15:45 RINKU (Rec: 12/19/18 15:48 RINKU [id number]) Nutritional Asmnt/Malnutrition Patient General Information Nutritional Screening Low Risk Diagnosis Psychosis NOS Pertinent Medical Hx/Surgical Hx Parkinsons, Dementia (limited , no H&P) Subjective Information Pt is a 73-year-old male admitted on 12/13 d/t increased agitation, aggressive behavior, and anxiety. Pt is eating 80% of meals Per Meal/ Nutrition Activity Record. Dietary is currently providing an estimated 2790 kcals and 125 gm Pro, per Pt PO intake this is providing an estimated 2230 kcals and 100gm Pro to meet 100+% kcal and 100+% Pro needs- adequate to meet estimated nutritional needs. Pt has bruising, wounds are healing and scabbed over. HT: 57 WT: 195 LB (88.64 kg) ABW: 160 LB (72.61 kg) BMI: 30.54 (Obese) GI: WNL, Soft, Non-tender, Round BM: 12/17 x1 I/O: 480/Not Noted Skin: Area of concern Wound: LINNEA knees scabs. Lt Smith rash with pink. LT forearm bruise with discoloration. Oleksandr: 23 Diet Order: Regular Estimated Energy Needs: ( Geriatric, ABW) 7825-5218 kcals (25-30 kcals/ kg) 73-87g Pro (1.0-1.2 g/kg) 9500-1772 ml (25-30 ml/kg) Current Diet Order/ Nutrition Support Regular Pertinent Medications MOM (PRN), Protonix, Flomax Pertinent Labs No labs to report Nutritional Hx/Data Height 1.7 m Height (Calculated Centimeters) 170.2 Current Weight (lbs) 88.451 kg Weight (Calculated Kilograms) 88.5 Weight (Calculated Grams) 39917.5 [place] Body Weight 148 LB (67.27 kg) % [place] Body Weight 132 Body Mass Index (BMI) 30.5 Weight Status Obese GI Symptoms Last BM 12/17 x1 Skin Integrity/Comment: Wound: LINNEA knees scabs. Lt Smith rash with pink. LT forearm bruise with discoloration. Oleksandr: 23 Current %PO Good (75-100%) Estimated Nutritional Goals BEE in Kcals: Adj wt of IBW Calories/Kcals/Kg 25-30 Kcals Calculated 3745-4982 Protein: Adj wt of IBW Protein g/k.0-1.2 Protein Calculated 73-87 Fluid: ml 9323-4289 ml (25-30 ml/kg) Nutritional Problem 1. Problem Problem No nutrition diagnosis at this time. Etiology N/A Signs/Symptoms: N/A Malnutrition Related to Morbid Obesity Malnutrition related to morbid obesity No Intervention/Recommendation Comments Continue with Regular diet as ordered. Expected Outcomes/Goals Expected Outcomes/Goals 1. PO intake to continue to meet >75% of nutritional needs . 2. Monitor PO intake, wt, nutrition related labs, and skin integrity to trend WNL. 3. F/U as low risk in 7-10 days, 12/26-12/29
--- NOTE | 2019-01-15 20:57 | Progress Notes ---
DATE: 01/15/2019 SUBJECTIVE: The patient remains confused, disoriented, but calm. We are trying to place him somewhere. Mild paranoia noted, rambling nonsensically, AO to name only on exam. Staff noting sometimes he knows he is in the hospital, but when I talk to him, he only knows his name. Good p.o. intake. Vitals were noted. MEDICATIONS: Reviewed. ASSESSMENT: The patient is still confused, disoriented, unable to care for his basic needs, concerns for grave disability. JOB# [id number]
[2019-01-16] MEDS: Pantoprazole 40 mg EC Tab PO SCH (09:12)
[2019-01-16] MEDS: Rivastigmine 4.6 mg/24 hr Tdm TD SCH (09:12)
--- NOTE | 2019-01-16 12:26 | Internal Medicine Prog Note ---
Internal Medicine Subjective - Subjective Patient seen and examined:: with staff, chart reviewed Patient is:: awake, non-verbal, non-interactive, in bed Per staff patient has:: no adverse event, no episodes of fall, poor oral intake , tolerating meds Internal Medicine Objective - Physical Exam Vitals and I&O: Vital Signs Temp 97.6 F 01/16/19 06:52 Pulse 71 01/16/19 06:52 Resp 19 01/16/19 07:48 BP 102/56 01/16/19 06:52 Pulse Ox 97 01/16/19 06:52 Intake & Output 01/15/19 01/16/19 01/16/19 18:59 06:59 18:59 Intake Total 120 Balance 120 Intake: Oral 120 Other: # Voids 2 3 # Bowel Movements 0 0 Active Medications: Current Medications Acetaminophen (Tylenol) 650 mg PO Q4H PRN PRN Reason: TEMP ABOVE 100 Stop: 03/05/19 09:46 Calamine/Phenol (Calmoseptine) 1 appl TP QID PRN PRN Reason: Skin Irritation Stop: 02/26/19 16:40 Lorazepam (Ativan) 0.5 mg PO Q4H PRN; Protocol PRN Reason: Anxiety Stop: 02/11/19 22:23 Last Admin: 01/16/19 09:12 Dose: 0.5 mg Pantoprazole Sodium (Protonix) 40 mg PO DAILY LISANDRO Stop: 02/12/19 08:59 Last Admin: 01/16/19 09:12 Dose: 40 mg Quetiapine Fumarate (Seroquel) 12.5 mg PO BID LISANDRO; Protocol Stop: 02/14/19 08:59 Last Admin: 01/16/19 09:12 Dose: 12.5 mg Rivastigmine (Exelon 4.6 Mg/24 Hr Tdm) 1 patch TD DAILY LISANDRO Stop: 02/12/19 08:59 Last Admin: 01/16/19 09:12 Dose: Not Given Tamsulosin HCl (Flomax) 0.4 mg PO HS LISANDRO Stop: 02/12/19 20:59 Last Admin: 01/15/19 20:51 Dose: 0.4 mg Zolpidem Tartrate (Ambien) 5 mg PO HS PRN PRN Reason: Insomnia Stop: 02/11/19 22:23 Last Admin: 01/15/19 21:53 Dose: 5 mg General: demented, disheveled, thin HEENT: NC/AT, PERRLA, EOMI Neck: Supple, No JVD Lungs: CTAB Cardiovascular: RRR, Normal S1, Normal S2, with murmur Abdomen: soft, non-tender, thin, positive bowel sound Extremities: excoriation, deformity Neurological: no change Internal Medicine Assmt/Plan - Assessment Assessment: ASSESSMENT AND PLAN: Parkinson's disorder, Alzheimer's dementia, BPH, gastroesophageal reflux disease. - Plan Plan: PLAN: We will place the patient on fall precaution. We will try to see what his medication for Parkinson's. Continue on Flomax. Continue on proton pump inhibitor. We will continue monitoring closely with you, Dr. Kinney. meds renewed Nutritional Asmnt/Malnutr-PDOC - Dietary Evaluation Malnutrition Findings (Please click <Entered> for more info): Nutritional Asmnt/Malnutrition Start: 12/19/18 15: 45 Text: Status: Complete Freq: Protocol: Document 12/19/18 15:45 RINKU (Rec: 12/19/18 15:48 RINKU [id number]) Nutritional Asmnt/Malnutrition Patient General Information Nutritional Screening Low Risk Diagnosis Psychosis NOS Pertinent Medical Hx/Surgical Hx Parkinsons, Dementia (limited , no H&P) Subjective Information Pt is a 73-year-old male admitted on 12/13 d/t increased agitation, aggressive behavior, and anxiety. Pt is eating 80% of meals Per Meal/ Nutrition Activity Record. Dietary is currently providing an estimated 2790 kcals and 125 gm Pro, per Pt PO intake this is providing an estimated 2230 kcals and 100gm Pro to meet 100+% kcal and 100+% Pro needs- adequate to meet estimated nutritional needs. Pt has bruising, wounds are healing and scabbed over. HT: 57 WT: 195 LB (88.64 kg) ABW: 160 LB (72.61 kg) BMI: 30.54 (Obese) GI: WNL, Soft, Non-tender, Round BM: 12/17 x1 I/O: 480/Not Noted Skin: Area of concern Wound: LINNEA knees scabs. Lt Smith rash with pink. LT forearm bruise with discoloration. Oleksandr: 23 Diet Order: Regular Estimated Energy Needs: ( Geriatric, ABW) 0020-7602 kcals (25-30 kcals/ kg) 73-87g Pro (1.0-1.2 g/kg) 8585-4890 ml (25-30 ml/kg) Current Diet Order/ Nutrition Support Regular Pertinent Medications MOM (PRN), Protonix, Flomax Pertinent Labs No labs to report Nutritional Hx/Data Height 1.7 m Height (Calculated Centimeters) 170.2 Current Weight (lbs) 88.451 kg Weight (Calculated Kilograms) 88.5 Weight (Calculated Grams) 81247.5 [place] Body Weight 148 LB (67.27 kg) % [place] Body Weight 132 Body Mass Index (BMI) 30.5 Weight Status Obese GI Symptoms Last BM 12/17 x1 Skin Integrity/Comment: Wound: LINNEA knees scabs. Lt Smith rash with pink. LT forearm bruise with discoloration. Oleksandr: 23 Current %PO Good (75-100%) Estimated Nutritional Goals BEE in Kcals: Adj wt of IBW Calories/Kcals/Kg 25-30 Kcals Calculated 9896-4573 Protein: Adj wt of IBW Protein g/k.0-1.2 Protein Calculated 73-87 Fluid: ml 4767-3267 ml (25-30 ml/kg) Nutritional Problem 1. Problem Problem No nutrition diagnosis at this time. Etiology N/A Signs/Symptoms: N/A Malnutrition Related to Morbid Obesity Malnutrition related to morbid obesity No Intervention/Recommendation Comments Continue with Regular diet as ordered. Expected Outcomes/Goals Expected Outcomes/Goals 1. PO intake to continue to meet >75% of nutritional needs . 2. Monitor PO intake, wt, nutrition related labs, and skin integrity to trend WNL. 3. F/U as low risk in 7-10 days, 12/26-12/29
--- NOTE | 2019-01-16 22:23 | Progress Notes ---
DATE: 01/16/2019 The patient is currently confused, disoriented. We are trying to help him with placement. The patient noted to be very confused, disoriented. Discussed with staff. The patient is calm, generally cooperative, but extremely confused, not able to care for his basic needs. We will continue to monitor. JOB# [id number]
[2019-01-17] MEDS: Pantoprazole 40 mg EC Tab PO SCH (09:46)
[2019-01-17] MEDS: Rivastigmine 4.6 mg/24 hr Tdm TD SCH (09:46)
--- NOTE | 2019-01-17 12:33 | Internal Medicine Prog Note ---
Internal Medicine Subjective - Subjective Patient seen and examined:: with staff, chart reviewed Patient is:: awake, non-verbal, non-interactive, in bed Per staff patient has:: no adverse event, no episodes of fall, poor oral intake , tolerating meds Internal Medicine Objective - Physical Exam Vitals and I&O: Vital Signs Temp 97.4 F 01/17/19 07:03 Pulse 75 01/17/19 07:03 Resp 18 01/17/19 08:00 BP 102/66 01/17/19 07:03 Pulse Ox 98 01/17/19 07:03 Intake & Output 01/16/19 01/17/19 01/17/19 18:59 06:59 18:59 Intake Total 1200 120 Balance 1200 120 Intake: Oral 1200 120 Other: # Voids 2 # Bowel Movements 1 1 Active Medications: Current Medications Acetaminophen (Tylenol) 650 mg PO Q4H PRN PRN Reason: TEMP ABOVE 100 Stop: 03/05/19 09:46 Calamine/Phenol (Calmoseptine) 1 appl TP QID PRN PRN Reason: Skin Irritation Stop: 02/26/19 16:40 Lorazepam (Ativan) 0.5 mg PO Q4H PRN; Protocol PRN Reason: Anxiety Stop: 02/11/19 22:23 Last Admin: 01/16/19 20:41 Dose: 0.5 mg Pantoprazole Sodium (Protonix) 40 mg PO DAILY LISANDRO Stop: 02/12/19 08:59 Last Admin: 01/17/19 09:46 Dose: 40 mg Quetiapine Fumarate (Seroquel) 12.5 mg PO BID LISANDRO; Protocol Stop: 02/14/19 08:59 Last Admin: 01/17/19 09:45 Dose: 12.5 mg Rivastigmine (Exelon 4.6 Mg/24 Hr Tdm) 1 patch TD DAILY LISANDRO Stop: 02/12/19 08:59 Last Admin: 01/17/19 09:46 Dose: 1 patch Tamsulosin HCl (Flomax) 0.4 mg PO HS LISANDRO Stop: 02/12/19 20:59 Last Admin: 01/16/19 20:40 Dose: 0.4 mg Zolpidem Tartrate (Ambien) 5 mg PO HS PRN PRN Reason: Insomnia Stop: 02/11/19 22:23 Last Admin: 01/16/19 21:59 Dose: 5 mg General: demented, disheveled, thin HEENT: NC/AT, PERRLA, EOMI Neck: Supple, No JVD Lungs: CTAB Cardiovascular: RRR, Normal S1, Normal S2, with murmur Abdomen: soft, non-tender, thin, positive bowel sound Extremities: excoriation, deformity Neurological: no change Internal Medicine Assmt/Plan - Assessment Assessment: ASSESSMENT AND PLAN: Parkinson's disorder, Alzheimer's dementia, BPH, gastroesophageal reflux disease. - Plan Plan: PLAN: We will place the patient on fall precaution. We will try to see what his medication for Parkinson's. Continue on Flomax. Continue on proton pump inhibitor. We will continue monitoring closely with you, Dr. Kinney. meds renewed Nutritional Asmnt/Malnutr-PDOC - Dietary Evaluation Malnutrition Findings (Please click <Entered> for more info): Nutritional Asmnt/Malnutrition Start: 12/19/18 15: 45 Text: Status: Complete Freq: Protocol: Document 12/19/18 15:45 RINKU (Rec: 12/19/18 15:48 RINKU [email or web address]) Nutritional Asmnt/Malnutrition Patient General Information Nutritional Screening Low Risk Diagnosis Psychosis NOS Pertinent Medical Hx/Surgical Hx Parkinsons, Dementia (limited , no H&P) Subjective Information Pt is a 73-year-old male admitted on 12/13 d/t increased agitation, aggressive behavior, and anxiety. Pt is eating 80% of meals Per Meal/ Nutrition Activity Record. Dietary is currently providing an estimated 2790 kcals and 125 gm Pro, per Pt PO intake this is providing an estimated 2230 kcals and 100gm Pro to meet 100+% kcal and 100+% Pro needs- adequate to meet estimated nutritional needs. Pt has bruising, wounds are healing and scabbed over. HT: 57 WT: 195 LB (88.64 kg) ABW: 160 LB (72.61 kg) BMI: 30.54 (Obese) GI: WNL, Soft, Non-tender, Round BM: 12/17 x1 I/O: 480/Not Noted Skin: Area of concern Wound: LINNEA knees scabs. Lt Smith rash with pink. LT forearm bruise with discoloration. Oleksandr: 23 Diet Order: Regular Estimated Energy Needs: ( Geriatric, ABW) 6490-4541 kcals (25-30 kcals/ kg) 73-87g Pro (1.0-1.2 g/kg) 3738-0322 ml (25-30 ml/kg) Current Diet Order/ Nutrition Support Regular Pertinent Medications MOM (PRN), Protonix, Flomax Pertinent Labs No labs to report Nutritional Hx/Data Height 1.7 m Height (Calculated Centimeters) 170.2 Current Weight (lbs) 88.451 kg Weight (Calculated Kilograms) 88.5 Weight (Calculated Grams) 19094.5 [place] Body Weight 148 LB (67.27 kg) % [place] Body Weight 132 Body Mass Index (BMI) 30.5 Weight Status Obese GI Symptoms Last BM 12/17 x1 Skin Integrity/Comment: Wound: LINNEA knees scabs. Lt Smith rash with pink. LT forearm bruise with discoloration. Oleksandr: 23 Current %PO Good (75-100%) Estimated Nutritional Goals BEE in Kcals: Adj wt of IBW Calories/Kcals/Kg 25-30 Kcals Calculated 2940-3282 Protein: Adj wt of IBW Protein g/k.0-1.2 Protein Calculated 73-87 Fluid: ml 0414-6023 ml (25-30 ml/kg) Nutritional Problem 1. Problem Problem No nutrition diagnosis at this time. Etiology N/A Signs/Symptoms: N/A Malnutrition Related to Morbid Obesity Malnutrition related to morbid obesity No Intervention/Recommendation Comments Continue with Regular diet as ordered. Expected Outcomes/Goals Expected Outcomes/Goals 1. PO intake to continue to meet >75% of nutritional needs . 2. Monitor PO intake, wt, nutrition related labs, and skin integrity to trend WNL. 3. F/U as low risk in 7-10 days, 12/26-12/29
[2019-01-18] MEDS: Pantoprazole 40 mg EC Tab PO SCH (09:25)
[2019-01-18] MEDS: Rivastigmine 4.6 mg/24 hr Tdm TD SCH (09:26)
--- NOTE | 2019-01-18 12:34 | Internal Medicine Prog Note ---
Internal Medicine Subjective - Subjective Patient seen and examined:: with staff, chart reviewed Patient is:: awake, non-verbal, non-interactive, in bed Per staff patient has:: no adverse event, no episodes of fall, poor oral intake , tolerating meds Internal Medicine Objective - Physical Exam Vitals and I&O: Vital Signs Temp 98.0 F 01/18/19 06:28 Pulse 65 01/18/19 06:28 Resp 20 01/18/19 06:28 BP 106/65 01/18/19 06:28 Pulse Ox 99 01/18/19 06:28 Intake & Output 01/17/19 01/18/19 01/18/19 18:59 06:59 18:59 Intake Total 1320 120 Balance 1320 120 Intake: Oral 1320 120 Other: # Voids 4 2 # Bowel Movements 1 0 Active Medications: Current Medications Acetaminophen (Tylenol) 650 mg PO Q4H PRN PRN Reason: TEMP ABOVE 100 Stop: 03/05/19 09:46 Calamine/Phenol (Calmoseptine) 1 appl TP QID PRN PRN Reason: Skin Irritation Stop: 02/26/19 16:40 Lorazepam (Ativan) 0.5 mg PO Q4H PRN; Protocol PRN Reason: Anxiety Stop: 02/11/19 22:23 Last Admin: 01/17/19 16:48 Dose: 0.5 mg Pantoprazole Sodium (Protonix) 40 mg PO DAILY LISANDRO Stop: 02/12/19 08:59 Last Admin: 01/18/19 09:25 Dose: 40 mg Quetiapine Fumarate (Seroquel) 12.5 mg PO BID LISANDRO; Protocol Stop: 02/14/19 08:59 Last Admin: 01/18/19 09:25 Dose: 12.5 mg Rivastigmine (Exelon 4.6 Mg/24 Hr Tdm) 1 patch TD DAILY LISANDRO Stop: 02/12/19 08:59 Last Admin: 01/18/19 09:26 Dose: 1 patch Tamsulosin HCl (Flomax) 0.4 mg PO HS LISANDRO Stop: 02/12/19 20:59 Last Admin: 01/17/19 21:37 Dose: 0.4 mg Zolpidem Tartrate (Ambien) 5 mg PO HS PRN PRN Reason: Insomnia Stop: 02/11/19 22:23 Last Admin: 01/16/19 21:59 Dose: 5 mg General: demented, disheveled, thin HEENT: NC/AT, PERRLA, EOMI Neck: Supple, No JVD Lungs: CTAB Cardiovascular: RRR, Normal S1, Normal S2, with murmur Abdomen: soft, non-tender, thin, positive bowel sound Extremities: excoriation, deformity Neurological: no change Internal Medicine Assmt/Plan - Assessment Assessment: ASSESSMENT AND PLAN: Parkinson's disorder, Alzheimer's dementia, BPH, gastroesophageal reflux disease. - Plan Plan: PLAN: We will place the patient on fall precaution. We will try to see what his medication for Parkinson's. Continue on Flomax. Continue on proton pump inhibitor. We will continue monitoring closely with you, Dr. Kinney. meds renewed Nutritional Asmnt/Malnutr-PDOC - Dietary Evaluation Malnutrition Findings (Please click <Entered> for more info): Nutritional Asmnt/Malnutrition Start: 12/19/18 15: 45 Text: Status: Complete Freq: Protocol: Document 12/19/18 15:45 RINKU (Rec: 12/19/18 15:48 RINUK [email or web address]) Nutritional Asmnt/Malnutrition Patient General Information Nutritional Screening Low Risk Diagnosis Psychosis NOS Pertinent Medical Hx/Surgical Hx Parkinsons, Dementia (limited , no H&P) Subjective Information Pt is a 73-year-old male admitted on 12/13 d/t increased agitation, aggressive behavior, and anxiety. Pt is eating 80% of meals Per Meal/ Nutrition Activity Record. Dietary is currently providing an estimated 2790 kcals and 125 gm Pro, per Pt PO intake this is providing an estimated 2230 kcals and 100gm Pro to meet 100+% kcal and 100+% Pro needs- adequate to meet estimated nutritional needs. Pt has bruising, wounds are healing and scabbed over. HT: 57 WT: 195 LB (88.64 kg) ABW: 160 LB (72.61 kg) BMI: 30.54 (Obese) GI: WNL, Soft, Non-tender, Round BM: 12/17 x1 I/O: 480/Not Noted Skin: Area of concern Wound: LINNEA knees scabs. Lt Smith rash with pink. LT forearm bruise with discoloration. Oleksandr: 23 Diet Order: Regular Estimated Energy Needs: ( Geriatric, ABW) 2513-0790 kcals (25-30 kcals/ kg) 73-87g Pro (1.0-1.2 g/kg) 6564-7590 ml (25-30 ml/kg) Current Diet Order/ Nutrition Support Regular Pertinent Medications MOM (PRN), Protonix, Flomax Pertinent Labs No labs to report Nutritional Hx/Data Height 1.7 m Height (Calculated Centimeters) 170.2 Current Weight (lbs) 88.451 kg Weight (Calculated Kilograms) 88.5 Weight (Calculated Grams) 17926.5 [place] Body Weight 148 LB (67.27 kg) % [place] Body Weight 132 Body Mass Index (BMI) 30.5 Weight Status Obese GI Symptoms Last BM 12/17 x1 Skin Integrity/Comment: Wound: LINNEA knees scabs. Lt Smith rash with pink. LT forearm bruise with discoloration. Oleksandr: 23 Current %PO Good (75-100%) Estimated Nutritional Goals BEE in Kcals: Adj wt of IBW Calories/Kcals/Kg 25-30 Kcals Calculated 2508-1870 Protein: Adj wt of IBW Protein g/k.0-1.2 Protein Calculated 73-87 Fluid: ml 8392-0672 ml (25-30 ml/kg) Nutritional Problem 1. Problem Problem No nutrition diagnosis at this time. Etiology N/A Signs/Symptoms: N/A Malnutrition Related to Morbid Obesity Malnutrition related to morbid obesity No Intervention/Recommendation Comments Continue with Regular diet as ordered. Expected Outcomes/Goals Expected Outcomes/Goals 1. PO intake to continue to meet >75% of nutritional needs . 2. Monitor PO intake, wt, nutrition related labs, and skin integrity to trend WNL. 3. F/U as low risk in 7-10 days, 12/26-12/29
--- NOTE | 2019-01-18 15:00 | Progress Notes ---
DATE: 01/17/2019 The patient is calm, confused at his baseline, pending placement. Vitals were noted. Medications were noted. Discussed with staff. Fair sleep, fair appetite. Currently pending placement. The patient with ongoing grave disability. JOB# [id number]
--- NOTE | 2019-01-19 08:59 | Progress Notes ---
DATE: SUBJECTIVE: The patient is seen, chart reviewed, discussed with staff. The patient is confused at his baseline, currently pending a safe discharge plan. Fair sleep, fair appetite. Awake, alert, A and O to name only. Medications were noted discussed with staff. I will continue to monitor, pending a safe discharge plan right now. JOB# [id number]
[2019-01-19] MEDS: Pantoprazole 40 mg EC Tab PO SCH (09:40)
[2019-01-19] MEDS: Rivastigmine 4.6 mg/24 hr Tdm TD SCH (09:40)
--- NOTE | 2019-01-19 11:16 | Internal Medicine Prog Note ---
Internal Medicine Subjective - Subjective Patient seen and examined:: with staff, chart reviewed Patient is:: awake, non-verbal, non-interactive, in bed Per staff patient has:: no adverse event, no episodes of fall, poor oral intake , tolerating meds Internal Medicine Objective - Physical Exam Vitals and I&O: Vital Signs Temp 97.9 F 01/18/19 20:50 Pulse 85 01/18/19 20:50 Resp 18 01/18/19 20:50 BP 94/69 01/18/19 20:50 Pulse Ox 97 01/18/19 20:50 Intake & Output 01/18/19 01/19/19 01/19/19 18:59 06:59 18:59 Intake Total 1050 240 Output Total 1 Balance 1050 239 Intake: Oral 1050 240 Output: Urine/Stool Mix 1 Other: # Voids 1 # Bowel Movements 1 1 Active Medications: Current Medications Acetaminophen (Tylenol) 650 mg PO Q4H PRN PRN Reason: TEMP ABOVE 100 Stop: 03/05/19 09:46 Calamine/Phenol (Calmoseptine) 1 appl TP QID PRN PRN Reason: Skin Irritation Stop: 02/26/19 16:40 Lorazepam (Ativan) 0.5 mg PO Q4H PRN; Protocol PRN Reason: Anxiety Stop: 02/11/19 22:23 Last Admin: 01/17/19 16:48 Dose: 0.5 mg Pantoprazole Sodium (Protonix) 40 mg PO DAILY LISANDRO Stop: 02/12/19 08:59 Last Admin: 01/19/19 09:40 Dose: 40 mg Quetiapine Fumarate (Seroquel) 12.5 mg PO BID LISANDRO; Protocol Stop: 02/14/19 08:59 Last Admin: 01/19/19 09:40 Dose: 12.5 mg Rivastigmine (Exelon 4.6 Mg/24 Hr Tdm) 1 patch TD DAILY LISANDRO Stop: 02/12/19 08:59 Last Admin: 01/19/19 09:40 Dose: 1 patch Tamsulosin HCl (Flomax) 0.4 mg PO HS LISANDRO Stop: 02/12/19 20:59 Last Admin: 01/18/19 20:35 Dose: 0.4 mg Zolpidem Tartrate (Ambien) 5 mg PO HS PRN PRN Reason: Insomnia Stop: 02/11/19 22:23 Last Admin: 01/18/19 20:35 Dose: 5 mg General: demented, disheveled, thin HEENT: NC/AT, PERRLA, EOMI Neck: Supple, No JVD Lungs: CTAB Cardiovascular: RRR, Normal S1, Normal S2, with murmur Abdomen: soft, non-tender, thin, positive bowel sound Extremities: excoriation, deformity Neurological: no change Internal Medicine Assmt/Plan - Assessment Assessment: ASSESSMENT AND PLAN: Parkinson's disorder, Alzheimer's dementia, BPH, gastroesophageal reflux disease. - Plan Plan: PLAN: We will place the patient on fall precaution. We will try to see what his medication for Parkinson's. Continue on Flomax. Continue on proton pump inhibitor. We will continue monitoring closely with you, Dr. Kinney. meds renewed Nutritional Asmnt/Malnutr-PDOC - Dietary Evaluation Malnutrition Findings (Please click <Entered> for more info): Nutritional Asmnt/Malnutrition Start: 12/19/18 15: 45 Text: Status: Complete Freq: Protocol: Document 12/19/18 15:45 RINKU (Rec: 12/19/18 15:48 RINKU [email or web address]) Nutritional Asmnt/Malnutrition Patient General Information Nutritional Screening Low Risk Diagnosis Psychosis NOS Pertinent Medical Hx/Surgical Hx Parkinsons, Dementia (limited , no H&P) Subjective Information Pt is a 73-year-old male admitted on 12/13 d/t increased agitation, aggressive behavior, and anxiety. Pt is eating 80% of meals Per Meal/ Nutrition Activity Record. Dietary is currently providing an estimated 2790 kcals and 125 gm Pro, per Pt PO intake this is providing an estimated 2230 kcals and 100gm Pro to meet 100+% kcal and 100+% Pro needs- adequate to meet estimated nutritional needs. Pt has bruising, wounds are healing and scabbed over. HT: 57 WT: 195 LB (88.64 kg) ABW: 160 LB (72.61 kg) BMI: 30.54 (Obese) GI: WNL, Soft, Non-tender, Round BM: 12/17 x1 I/O: 480/Not Noted Skin: Area of concern Wound: LINNEA knees scabs. Lt Smith rash with pink. LT forearm bruise with discoloration. Oleksandr: 23 Diet Order: Regular Estimated Energy Needs: ( Geriatric, ABW) 2129-9890 kcals (25-30 kcals/ kg) 73-87g Pro (1.0-1.2 g/kg) 3771-5569 ml (25-30 ml/kg) Current Diet Order/ Nutrition Support Regular Pertinent Medications MOM (PRN), Protonix, Flomax Pertinent Labs No labs to report Nutritional Hx/Data Height 1.7 m Height (Calculated Centimeters) 170.2 Current Weight (lbs) 88.451 kg Weight (Calculated Kilograms) 88.5 Weight (Calculated Grams) 09175.5 [place] Body Weight 148 LB (67.27 kg) % [place] Body Weight 132 Body Mass Index (BMI) 30.5 Weight Status Obese GI Symptoms Last BM 12/17 x1 Skin Integrity/Comment: Wound: LINNEA knees scabs. Lt Smith rash with pink. LT forearm bruise with discoloration. Oleksandr: 23 Current %PO Good (75-100%) Estimated Nutritional Goals BEE in Kcals: Adj wt of IBW Calories/Kcals/Kg 25-30 Kcals Calculated 5724-4433 Protein: Adj wt of IBW Protein g/k.0-1.2 Protein Calculated 73-87 Fluid: ml 3939-8142 ml (25-30 ml/kg) Nutritional Problem 1. Problem Problem No nutrition diagnosis at this time. Etiology N/A Signs/Symptoms: N/A Malnutrition Related to Morbid Obesity Malnutrition related to morbid obesity No Intervention/Recommendation Comments Continue with Regular diet as ordered. Expected Outcomes/Goals Expected Outcomes/Goals 1. PO intake to continue to meet >75% of nutritional needs . 2. Monitor PO intake, wt, nutrition related labs, and skin integrity to trend WNL. 3. F/U as low risk in 7-10 days, 12/26-12/29
--- NOTE | 2019-01-20 04:42 | Progress Notes ---
DATE: 01/19/2019 PSYCHIATRIC FOLLOWUP NOTE SUBJECTIVE: The patient was seen and evaluated. The patient's chart reviewed. Nursing staff observed no acute behavior overnight. Today on [id number] evaluation, confusion at his baseline, pending disposition ____. ASSESSMENT AND PLAN: Dementia, currently at his baseline. We will continue monitoring and evaluating. No complications. No side effects. Pending safe discharge at this time. JOB# [id number]
[2019-01-20] MEDS: Pantoprazole 40 mg EC Tab PO SCH (08:58)
[2019-01-20] MEDS: Rivastigmine 4.6 mg/24 hr Tdm TD SCH (08:58)
--- NOTE | 2019-01-20 15:53 | Internal Medicine Prog Note ---
Internal Medicine Subjective - Subjective Patient seen and examined:: with staff, chart reviewed Patient is:: awake, non-verbal, non-interactive, in bed Per staff patient has:: no adverse event, no episodes of fall, poor oral intake , tolerating meds Internal Medicine Objective - Physical Exam Vitals and I&O: Vital Signs Temp 98 F 01/20/19 06:44 Pulse 64 01/20/19 06:44 Resp 20 01/20/19 06:44 BP 102/70 01/20/19 06:44 Pulse Ox 100 01/20/19 06:44 Intake & Output 01/19/19 01/20/19 01/20/19 19:59 06:59 18:59 Intake Total Balance Intake: Oral Other: # Voids # Bowel Movements Active Medications: Current Medications Acetaminophen (Tylenol) 650 mg PO Q4H PRN PRN Reason: TEMP ABOVE 100 Stop: 03/05/19 09:46 Calamine/Phenol (Calmoseptine) 1 appl TP QID PRN PRN Reason: Skin Irritation Stop: 02/26/19 16:40 Lorazepam (Ativan) 0.5 mg PO Q4H PRN; Protocol PRN Reason: Anxiety Stop: 02/11/19 22:23 Last Admin: 01/20/19 08:58 Dose: 0.5 mg Pantoprazole Sodium (Protonix) 40 mg PO DAILY LISANDRO Stop: 02/12/19 08:59 Last Admin: 01/20/19 08:58 Dose: 40 mg Quetiapine Fumarate (Seroquel) 12.5 mg PO BID LISANDRO; Protocol Stop: 02/14/19 08:59 Last Admin: 01/20/19 08:57 Dose: 12.5 mg Rivastigmine (Exelon 4.6 Mg/24 Hr Tdm) 1 patch TD DAILY LISANDRO Stop: 02/12/19 08:59 Last Admin: 01/20/19 08:58 Dose: 1 patch Tamsulosin HCl (Flomax) 0.4 mg PO HS LISANDRO Stop: 02/12/19 20:59 Last Admin: 01/19/19 20:49 Dose: 0.4 mg Zolpidem Tartrate (Ambien) 5 mg PO HS PRN PRN Reason: Insomnia Stop: 02/11/19 22:23 Last Admin: 01/19/19 20:49 Dose: 5 mg General: demented, disheveled, thin HEENT: NC/AT, PERRLA, EOMI Neck: Supple, No JVD Lungs: CTAB Cardiovascular: RRR, Normal S1, Normal S2, with murmur Abdomen: soft, non-tender, thin, positive bowel sound Extremities: excoriation, deformity Neurological: no change Internal Medicine Assmt/Plan - Assessment Assessment: ASSESSMENT AND PLAN: Parkinson's disorder, Alzheimer's dementia, BPH, gastroesophageal reflux disease. - Plan Plan: PLAN: We will place the patient on fall precaution. We will try to see what his medication for Parkinson's. Continue on Flomax. Continue on proton pump inhibitor. We will continue monitoring closely with you, Dr. Kinney. meds renewed Nutritional Asmnt/Malnutr-PDOC - Dietary Evaluation Malnutrition Findings (Please click <Entered> for more info): Nutritional Asmnt/Malnutrition Start: 12/19/18 15: 45 Text: Status: Complete Freq: Protocol: Document 12/19/18 15:45 RINKU (Rec: 12/19/18 15:48 RINKU [email or web address]) Nutritional Asmnt/Malnutrition Patient General Information Nutritional Screening Low Risk Diagnosis Psychosis NOS Pertinent Medical Hx/Surgical Hx Parkinsons, Dementia (limited , no H&P) Subjective Information Pt is a 73-year-old male admitted on 12/13 d/t increased agitation, aggressive behavior, and anxiety. Pt is eating 80% of meals Per Meal/ Nutrition Activity Record. Dietary is currently providing an estimated 2790 kcals and 125 gm Pro, per Pt PO intake this is providing an estimated 2230 kcals and 100gm Pro to meet 100+% kcal and 100+% Pro needs- adequate to meet estimated nutritional needs. Pt has bruising, wounds are healing and scabbed over. HT: 57 WT: 195 LB (88.64 kg) ABW: 160 LB (72.61 kg) BMI: 30.54 (Obese) GI: WNL, Soft, Non-tender, Round BM: 12/17 x1 I/O: 480/Not Noted Skin: Area of concern Wound: LINNEA knees scabs. Lt Smith rash with pink. LT forearm bruise with discoloration. Oleksandr: 23 Diet Order: Regular Estimated Energy Needs: ( Geriatric, ABW) 7483-0695 kcals (25-30 kcals/ kg) 73-87g Pro (1.0-1.2 g/kg) 3792-0912 ml (25-30 ml/kg) Current Diet Order/ Nutrition Support Regular Pertinent Medications MOM (PRN), Protonix, Flomax Pertinent Labs No labs to report Nutritional Hx/Data Height 1.7 m Height (Calculated Centimeters) 170.2 Current Weight (lbs) 88.451 kg Weight (Calculated Kilograms) 88.5 Weight (Calculated Grams) 52090.5 [place] Body Weight 148 LB (67.27 kg) % [place] Body Weight 132 Body Mass Index (BMI) 30.5 Weight Status Obese GI Symptoms Last BM 12/17 x1 Skin Integrity/Comment: Wound: LINNEA knees scabs. Lt Smith rash with pink. LT forearm bruise with discoloration. Oleksandr: 23 Current %PO Good (75-100%) Estimated Nutritional Goals BEE in Kcals: Adj wt of IBW Calories/Kcals/Kg 25-30 Kcals Calculated 3037-8932 Protein: Adj wt of IBW Protein g/k.0-1.2 Protein Calculated 73-87 Fluid: ml 2923-5923 ml (25-30 ml/kg) Nutritional Problem 1. Problem Problem No nutrition diagnosis at this time. Etiology N/A Signs/Symptoms: N/A Malnutrition Related to Morbid Obesity Malnutrition related to morbid obesity No Intervention/Recommendation Comments Continue with Regular diet as ordered. Expected Outcomes/Goals Expected Outcomes/Goals 1. PO intake to continue to meet >75% of nutritional needs . 2. Monitor PO intake, wt, nutrition related labs, and skin integrity to trend WNL. 3. F/U as low risk in 7-10 days, 12/26-12/29
--- NOTE | 2019-01-20 19:05 | Progress Notes ---
DATE: 01/20/2019 SUBJECTIVE: The patient was seen and evaluated. The patient's chart reviewed. No acute events overnight. He denies any complications and side effects today. MENTAL STATUS EXAMINATION: Stable from last visit. ASSESSMENT AND PLAN: Dementia, current and baseline. Awaiting safe disposition. JOB# [id number]
[2019-01-21] MEDS: Rivastigmine 4.6 mg/24 hr Tdm TD SCH (08:33)
[2019-01-21] MEDS: Pantoprazole 40 mg EC Tab PO SCH (08:33)
--- NOTE | 2019-01-21 12:22 | Internal Medicine Prog Note ---
Internal Medicine Subjective - Subjective Patient seen and examined:: with staff, chart reviewed Patient is:: awake, non-verbal, non-interactive, in bed Per staff patient has:: no adverse event, no episodes of fall, poor oral intake , tolerating meds Internal Medicine Objective - Physical Exam Vitals and I&O: Vital Signs Temp 97.3 F 01/21/19 06:19 Pulse 93 01/21/19 06:19 Resp 19 01/21/19 06:19 BP 112/76 01/21/19 06:19 Pulse Ox 96 01/21/19 06:19 Intake & Output 01/20/19 01/21/19 01/21/19 18:59 06:59 18:59 Intake Total 1200 120 Balance 1200 120 Intake: Oral 1200 120 Other: # Voids 4 3 # Bowel Movements 0 Active Medications: Current Medications Acetaminophen (Tylenol) 650 mg PO Q4H PRN PRN Reason: TEMP ABOVE 100 Stop: 03/05/19 09:46 Calamine/Phenol (Calmoseptine) 1 appl TP QID PRN PRN Reason: Skin Irritation Stop: 02/26/19 16:40 Lorazepam (Ativan) 0.5 mg PO Q4H PRN; Protocol PRN Reason: Anxiety Stop: 02/11/19 22:23 Last Admin: 01/21/19 08:33 Dose: 0.5 mg Pantoprazole Sodium (Protonix) 40 mg PO DAILY LISANDRO Stop: 02/12/19 08:59 Last Admin: 01/21/19 08:33 Dose: 40 mg Quetiapine Fumarate (Seroquel) 12.5 mg PO BID LISANDRO; Protocol Stop: 02/14/19 08:59 Last Admin: 01/21/19 08:32 Dose: 12.5 mg Rivastigmine (Exelon 4.6 Mg/24 Hr Tdm) 1 patch TD DAILY LISANDRO Stop: 02/12/19 08:59 Last Admin: 01/21/19 08:33 Dose: 1 patch Tamsulosin HCl (Flomax) 0.4 mg PO HS LISANDRO Stop: 02/12/19 20:59 Last Admin: 01/20/19 20:50 Dose: 0.4 mg Zolpidem Tartrate (Ambien) 5 mg PO HS PRN PRN Reason: Insomnia Stop: 02/11/19 22:23 Last Admin: 01/20/19 20:50 Dose: 5 mg General: demented, disheveled, thin HEENT: NC/AT, PERRLA, EOMI Neck: Supple, No JVD Lungs: CTAB Cardiovascular: RRR, Normal S1, Normal S2, with murmur Abdomen: soft, non-tender, thin, positive bowel sound Extremities: excoriation, deformity Neurological: no change Internal Medicine Assmt/Plan - Assessment Assessment: ASSESSMENT AND PLAN: Parkinson's disorder, Alzheimer's dementia, BPH, gastroesophageal reflux disease. - Plan Plan: PLAN: We will place the patient on fall precaution. We will try to see what his medication for Parkinson's. Continue on Flomax. Continue on proton pump inhibitor. We will continue monitoring closely with you, Dr. Kinney. meds renewed Nutritional Asmnt/Malnutr-PDOC - Dietary Evaluation Malnutrition Findings (Please click <Entered> for more info): Nutritional Asmnt/Malnutrition Start: 12/19/18 15: 45 Text: Status: Complete Freq: Protocol: Document 12/19/18 15:45 RINKU (Rec: 12/19/18 15:48 [email or web address] [id number]) Nutritional Asmnt/Malnutrition Patient General Information Nutritional Screening Low Risk Diagnosis Psychosis NOS Pertinent Medical Hx/Surgical Hx Parkinsons, Dementia (limited , no H&P) Subjective Information Pt is a 73-year-old male admitted on 12/13 d/t increased agitation, aggressive behavior, and anxiety. Pt is eating 80% of meals Per Meal/ Nutrition Activity Record. Dietary is currently providing an estimated 2790 kcals and 125 gm Pro, per Pt PO intake this is providing an estimated 2230 kcals and 100gm Pro to meet 100+% kcal and 100+% Pro needs- adequate to meet estimated nutritional needs. Pt has bruising, wounds are healing and scabbed over. HT: 57 WT: 195 LB (88.64 kg) ABW: 160 LB (72.61 kg) BMI: 30.54 (Obese) GI: WNL, Soft, Non-tender, Round BM: 12/17 x1 I/O: 480/Not Noted Skin: Area of concern Wound: LINNEA knees scabs. Lt Smith rash with pink. LT forearm bruise with discoloration. Oleksandr: 23 Diet Order: Regular Estimated Energy Needs: ( Geriatric, ABW) 9256-1281 kcals (25-30 kcals/ kg) 73-87g Pro (1.0-1.2 g/kg) 1392-8437 ml (25-30 ml/kg) Current Diet Order/ Nutrition Support Regular Pertinent Medications MOM (PRN), Protonix, Flomax Pertinent Labs No labs to report Nutritional Hx/Data Height 1.7 m Height (Calculated Centimeters) 170.2 Current Weight (lbs) 88.451 kg Weight (Calculated Kilograms) 88.5 Weight (Calculated Grams) 72296.5 Manson Body Weight 148 LB (67.27 kg) % Manson Body Weight 132 Body Mass Index (BMI) 30.5 Weight Status Obese GI Symptoms Last BM 12/17 x1 Skin Integrity/Comment: Wound: LINNEA knees scabs. Lt Smith rash with pink. LT forearm bruise with discoloration. Oleksandr: 23 Current %PO Good (75-100%) Estimated Nutritional Goals BEE in Kcals: Adj wt of IBW Calories/Kcals/Kg 25-30 Kcals Calculated 4531-7569 Protein: Adj wt of IBW Protein g/k.0-1.2 Protein Calculated 73-87 Fluid: ml 6344-7248 ml (25-30 ml/kg) Nutritional Problem 1. Problem Problem No nutrition diagnosis at this time. Etiology N/A Signs/Symptoms: N/A Malnutrition Related to Morbid Obesity Malnutrition related to morbid obesity No Intervention/Recommendation Comments Continue with Regular diet as ordered. Expected Outcomes/Goals Expected Outcomes/Goals 1. PO intake to continue to meet >75% of nutritional needs . 2. Monitor PO intake, wt, nutrition related labs, and skin integrity to trend WNL. 3. F/U as low risk in 7-10 days, 12/26-12/29
--- NOTE | 2019-01-21 17:43 | Discharge Summary ---
DATE OF DISCHARGE: 01/21/2019 HISTORY OF PRESENT ILLNESS: A 73-year-old male coming into the hospital extremely confused, requiring a higher level of redirection, prompting, very restless, sometimes needing to be in a Rachel chair. Staff having a hard time controlling his behaviors. The patient is essentially AO to name only. PAST PSYCHIATRIC HISTORY: Seems that he has a history of dementia. SOCIAL HISTORY: Needing a higher level of nursing care. There seems to be some family, specifically his sister involved. PROVISIONAL DIAGNOSES: Mood, unspecified; anxiety, unspecified; psychosis, unspecified; dementia, dementia with behaviors. MEDICAL: Please see full H and P. HOSPITAL COURSE: After initial assessment, medications were initiated, adjusted, titrated. Over the course of treatment, he was calmer, more cooperative, still at times requiring a Rachel chair, redirection, high level of prompting, but he was not combative or agitated and staff had easier time controlling his behaviors. Towards the latter end of treatment, he was calmer, just mostly confused, very forgetful, AO to name only, but better sleep, better appetite. We had a very hard time with placements. However, by 01/21/2019, placement was confirmed. The patient was discharged to a lower level of care, specifically [facility] facility. CONDITION UPON DISCHARGE: Improved, calm, cooperative, but confused. No SI or HI, no overt psychotic symptoms, better impulse control. DISCHARGE DIAGNOSES: Mood, unspecified; anxiety, unspecified; psychosis, unspecified; dementia, dementia with behaviors. MEDICAL: Please see full H and P. PROGNOSIS: If the patient follows up with outpatient mental health services and remains compliant with treatment, prognosis will improve, otherwise guarded. JOB# [id number]
== END 2019-01-21 12:45 | DRG 885 ==
LOC: GERO 19:35
PROVIDERS: ADMIT Psychiatry & Neurology Psychiatry; ATTEND Psychiatry & Neurology Psychiatry
DX: F29 Unspecified psychosis not due to a substance or known physiological condition (principal); F02.81 Dementia in other diseases classified elsewhere, unspecified severity, with behavioral disturbance; F39 Unspecified mood [affective] disorder; F41.9 Anxiety disorder, unspecified; G20 Parkinson's disease; G30.9 Alzheimer's disease, unspecified; N40.0 Benign prostatic hyperplasia without lower urinary tract symptoms; K21.9 Gastro-esophageal reflux disease without esophagitis; Z88.8 Allergy status to other drugs, medicaments and biological substances; Z79.899 Other long term (current) drug therapy
CPT/HCPCS: 90899; 97530; G0410; J1200; J1630; J2060; X3904; Z7610